=== PATIENT | male | born 1985 | race Caucasian/White ===

== ENCOUNTER → 2017-06-19 10:02 | Outpatient (CLI) | payer BC, SELFPAY ==
--- NOTE | 2017-06-19 | XR_ITS ---
XR cervical spine 5V COMPARISON: None HISTORY: Generalized neck pain TECHNIQUE: AP lateral and oblique views and spot view of the odontoid FINDINGS: There is straightening of normal curvature suggesting possible muscle spasm. C1-C7 appear intact and disc spaces are well maintained throughout. Oblique films show normal neural foramina bilaterally. The prevertebral soft tissues are normal and the odontoid is normal. IMPRESSION: Possible muscle spasm, no bony abnormality seen
--- NOTE | 2017-06-19 | XR_ITS ---
XR thoracic spine 2V COMPARISON: None HISTORY: Back pain TECHNIQUE: AP and lateral views and swimmer's view cervicothoracic junction FINDINGS: There is normal curvature and alignment. All thoracic vertebrae appear intact with no compression fracture seen. There is no degenerative change and is no paraspinal mass. IMPRESSION: Negative thoracic spine
--- NOTE | 2017-06-19 | XR_ITS ---
CLINICAL INDICATION: Left shoulder pain ORDERING PHYSICIAN: Manny García MD PATIENT AGE: 31 years COMPARISON: None FINDINGS: Three views of the left shoulder The distal clavicleleft, scapula, and proximal humerus are intact. Glenohumeral and acromioclavicular alignment appear normal. There is no acute fracture or dislocation of the left shoulder. No destructive bony lesions are identified. IMPRESSION: No acute fracture or dislocation of the left shoulder.
== END ==
PROVIDERS: PCP Internal Medicine Adolescent Medicine; Visit Provider Internal Medicine Adolescent Medicine
DX: M54.6 Pain in thoracic spine (principal); M25.512 Pain in left shoulder
CPT/HCPCS: 72050; 72070; 73030

== ENCOUNTER → 2018-08-27 10:46 | Outpatient (CLI) | payer OTHER, SELFPAY ==
--- NOTE | 2018-08-27 11:04 | XR_ITS ---
EXAM: XR lumbar spine min 4V HISTORY: Pain following injury/blunt trauma contusion or hematoma ITS.REASON: Lumbar back pain ORDERING PHYSICIAN: Francy Cox APRN PATIENT AGE: 32 years COMPARISON: None FINDINGS: Normal alignment. No fracture or dislocation. No lytic or blastic change. There are mild facet arthritic changes at L4-L5. There is degenerative disc disease at L4-L5 and L5-S1 with mild anterolisthesis of L5 on S1 of 7 mm. There may be a pars interarticularis defect at L5. 3 mm rounded metallic density foreign body overlies the right lower quadrant. IMPRESSION: 1. No acute finding. 2. Degenerative changes with grade 1 spondylolisthesis of L5 on S1 with possible pars defect at that level. This may be better evaluated with CT or MRI if clinically desired. 3. 3 mm metallic density radiopaque foreign body in the right lower quadrant which could be due to ingested foreign body or posttraumatic
== END ==
PROVIDERS: PCP Nurse Practitioner Family; Visit Provider Nurse Practitioner Family
DX: M54.5 Low back pain (principal)
CPT/HCPCS: 72110

== ENCOUNTER → 2018-11-18 15:54 | Outpatient (CLI) | payer OTHER, SELFPAY ==
[2018-11-18 16:10] LABS: Basophils % 0.5 % (0.1-2.0); Eosinophils # 0.2 K/mm3 (0.0-0.4); Eosinophils % 3.4 % (0.1-12.0); Hematocrit 46.3 % (42.0-52.0); Hemoglobin 15.8 g/dL (14.1-18.0); Lymphocytes # 1.8 K/mm3 (0.7-4.5); Lymphocytes % 33.4 % (10-50); Mean Corpuscular Hemoglobin 30.2 pg (27.0-31.2); Mean Corpuscular Volume 88.9 fl (80-94); Mean Platelet Volume 6.3 fl (7.4-10.4); Monocytes # 0.3 K/mm3 (0.1-1.0); Monocytes % 5.5 % (1.7-9.3); Neutrophils % 57.2 % (37.0-80.0); Platelet Count 224 K/mm3 (142-424); Red Blood Count 5.21 M/mm3 (4.60-6.20); Red Cell Distribution Width 12.4 % (11.5-17.5); White Blood Count 5.3 K/mm3 (4.8-10.8)
[2018-11-18 17:12] LABS: Alanine Aminotransferase 76 U/L (12-78); Albumin Level 4.4 gm/dL (3.4-5.0); Albumin/Globulin Ratio 1.5 (1.1-1.8); Alkaline Phosphatase 73 U/L (46-116); Anion Gap 10.7 mEq/L (5-15); Aspartate Amino Transferase 32 U/L (15-37); Bilirubin,Total 0.4 mg/dL (0.2-1.0); Blood Urea Nitrogen 15 mg/dL (7-18); Calcium 9.3 mg/dL (8.5-10.1); Carbon Dioxide 30 mmol/L (21.0-32.0); Chloride 105 mmol/L (98-107); Creatinine,Serum 1.07 mg/dL (0.70-1.30); Estimated Glomerular Filt Rate 79 ml/min (>60); GFR (African American) 96 ML/MIN (>60); Glucose 113 mg/dL (74-106); Potassium 3.7 mmoL/L (3.5-5.1); Sodium 142 mmol/L (136-145); Thyroid Stimulating Hormone 1.69 uIU/ml (0.358-3.740); Total Protein,Serum 7.4 gm/dL (6.4-8.2)
[2018-11-21 09:54] LABS: Vitamin B12 408 pg/mL (232-1245)
== END ==
PROVIDERS: Visit Provider Internal Medicine Adolescent Medicine
DX: R53.83 Other fatigue (principal); R53.81 Other malaise
CPT/HCPCS: 36415; 80053; 82607; 84443; 85025

== ENCOUNTER 2018-11-29 16:30 | Outpatient (RCR) | payer OTHER, SELFPAY ==
--- NOTE | 2018-11-23 16:07 | HMH.PTOPEV ---
PT Outpatient Evaluation Rehab PT Outpatient Evaluation Start: 11/23/18 14:58 Freq: Status: Active Protocol: Document 11/23/18 14:59 ROBERTO CARLOSSOLANGE (Rec: 11/23/18 16:07 CATRACHITO [id number]) Electronically Signed By John Feliciano PT 11/23/18 14:59 Outpatient Therapy Subjective History Subjective History 33 year old male pt. is referred to PT for L shoulder pn. Pt. reports that pn. began towards the end of October. He states that no specific incident lead to his pn. Pn. is primarily in the back of his shoulder. Pt. has had previous history of R shoulder pn. but nothing in his L. Pt. states that nothing specifically makes it better or worse but it is typically worse after activity. Note and eval done by student PT Sonny Arriaga Chief Complaint Pain Symptom Type Sharp Symptoms Relieved By Rest/Positioning Symptoms Aggravated By Physical Activity Prior Functional Limitations None Current Functional Limitations Reaching,Lifting,Housework, Recreation Activity Symptom Description Intermittent Level of pain today (0-10) 4 Pain scale - at its best (0-10) 0 Pain scale - at its worst (0-10) 6 Shoulder/Elbow Eval Shoulder Objective Measurements Palpation Tenderness tenderness shoulder exam standard left Shoulder Palpation Findings Tenderness Shoulder Palpation Overall Comment only very slight TTP over the posterior shoulder Shoulder ROM Right full ROM shoulder exam standard bilateral Left Shoulder Abduction Active Range of 180 Motion (degrees) Shoulder Flexion Active Range of Motion 180 (degrees) Query Text: Shoulder External Rotation Passive Range 80 of Motion (degrees) Shoulder Internal Rotation Passive Range 70 of Motion (degrees) pain with active ROM shoulder exam left standard pain with passive ROM shoulder exam left standard Shoulder MMT Right Shoulder Strength Reason Not Measured WFL Left Upper Trapezius/Levator Scapulae 5 Normal Shoulder Abduction Strength Grade 5 Normal Shoulder Extension Strength Grade 5 Normal Shoulder Flexion Strength Grade 5 Normal Shoulder External Rotation Strength 5 Normal Grade Shoulder Int
== END 2018-11-29 16:35 | disposition home or self-care (01) ==
LOC: PT 16:30
PROVIDERS: Visit Provider Internal Medicine Adolescent Medicine
DX: M75.102 Unspecified rotator cuff tear or rupture of left shoulder, not specified as traumatic (principal)
CPT/HCPCS: 97010; 97014; 97110; 97163; G0283

== ENCOUNTER → 2020-02-13 19:37 | Outpatient (CLI) | payer BC, SELFPAY ==
--- NOTE | 2020-02-13 19:57 | XR_ITS ---
PROCEDURE: XR CHEST PORTABLE CLINICAL HISTORY: COVID 19 TESTING, SHORTNESS OF BREATH, COVID EXPOSURE COMPARISON: CR [id number] XR chest portable from 06/18/2017 FINDINGS: The cardiomediastinal silhouette and pulmonary vascularity are within normal limits. The lungs are clear without infiltrates, suspicious nodules, or pleural effusions. No acute bony abnormalities. IMPRESSION: No acute findings. Dictated by: Preet Zuñiga MD 02/13/2020 21:23 Preet Zuñiga MD in [facility] 02/13/2020 21:23
[2020-02-13 22:31] LABS: Coronavirus 19 IgG Antibody Negative (Negative); Coronavirus 19 IgM Antibody Negative (Negative)
== END ==
PROVIDERS: PCP Nurse Practitioner Family; Visit Provider Nurse Practitioner Family
DX: Z03.818 Encounter for observation for suspected exposure to other biological agents ruled out (principal); R06.02 Shortness of breath
CPT/HCPCS: 71045; 86328

== ENCOUNTER → 2020-06-06 14:35 | Outpatient (CLI) | payer BC, SELFPAY ==
--- NOTE | 2020-06-06 14:39 | CT_ITS ---
PROCEDURE: CT CHEST WO CON CLINICAL INDICATION: MASS OF CHEST WALL, LT MULTIPLE LIPOMAS Left anterior/lateral upper chest mass Left upper abd mass possible Lipoma x several months, painful at times Lipoma x several years, no pain, both areas marked with BB Scanned through upper abd to include lower mass COMPARISON: No exams were available for comparison TECHNIQUE: Axial images obtained with sagittal and coronal reformats. All CT scans at the facility use one or more dose reduction, viz: automated exposure control, ma/kV adjustment per patient size (including targeted exams where dose is matched to indication, i.e. head), or iterative reconstruction technique. FINDINGS: HEART AND MEDIASTINAL STRUCTURES: Unremarkable. LUNGS AND PLEURAL SPACES: Calcified granulomas left lower lobe BONY STRUCTURES: No acute bony abnormalities apparent. UPPER ABDOMEN: Unremarkable. ADDITIONAL FINDINGS: BBs are placed over the areas of palpable concern. In the left mid chest laterally a BB is placed. There may be a small lipoma at this area at approximately 1.5 0.8 cm. In the left upper abdomen a BB is placed. There is a 3.4 x 2.4 cm lipoma deep to this area. IMPRESSION: 1. No acute finding of the chest. 2. Lipomas along the left chest wall and left upper abdomen. Dictated by: Preet Zuñiga MD 06/07/2020 06:30 Preet Zuñiga MD in [facility] 06/07/2020 06:30
== END ==
PROVIDERS: PCP Nurse Practitioner Family; Visit Provider Nurse Practitioner Family
DX: R22.2 Localized swelling, mass and lump, trunk (principal); D17.9 Benign lipomatous neoplasm, unspecified
CPT/HCPCS: 71250

== ENCOUNTER → 2021-03-14 09:08 | Outpatient (CLI) | payer BC, SELFPAY | PROVIDERS: PCP Internal Medicine Adolescent Medicine; Visit Provider Nurse Practitioner | DX: Z20.822 Contact with and (suspected) exposure to COVID-19 (principal) | CPT/HCPCS: C9803; U0003; U0005 ==

== ENCOUNTER → 2021-03-21 08:35 | Outpatient (CLI) | payer BC, SELFPAY | PROVIDERS: PCP Internal Medicine Adolescent Medicine; Visit Provider Nurse Practitioner | DX: Z20.822 Contact with and (suspected) exposure to COVID-19 (principal) | CPT/HCPCS: C9803; U0003; U0005 ==

== ENCOUNTER → 2021-03-28 14:45 | Outpatient (CLI) | payer BC, SELFPAY | PROVIDERS: Visit Provider Nurse Practitioner | DX: Z20.822 Contact with and (suspected) exposure to COVID-19 (principal) | CPT/HCPCS: C9803; U0003; U0005 ==

== ENCOUNTER → 2021-04-04 08:02 | Outpatient (CLI) | payer BC, SELFPAY | PROVIDERS: Visit Provider Nurse Practitioner | DX: Z20.822 Contact with and (suspected) exposure to COVID-19 (principal) | CPT/HCPCS: C9803; U0003; U0005 ==

== ENCOUNTER → 2021-04-11 08:12 | Outpatient (CLI) | payer BC, SELFPAY ==
[2021-04-12 15:31] LABS: Covid-19 Nasal PCR Sendout Lex NOT DETECTED
== END ==
PROVIDERS: Visit Provider Nurse Practitioner
DX: Z20.822 Contact with and (suspected) exposure to COVID-19 (principal)
CPT/HCPCS: C9803; U0004; U0005

== ENCOUNTER → 2021-04-17 08:04 | Outpatient (CLI) | payer BC, SELFPAY | PROVIDERS: Visit Provider Nurse Practitioner | DX: Z20.822 Contact with and (suspected) exposure to COVID-19 (principal) | CPT/HCPCS: C9803; U0003; U0005 ==

== ENCOUNTER → 2021-04-25 09:21 | Outpatient (CLI) | payer BC, SELFPAY ==
[2021-04-26 12:18] LABS: Covid-19 Nasal PCR Sendout Lex NOT DETECTED
== END ==
PROVIDERS: Visit Provider Nurse Practitioner
DX: Z20.822 Contact with and (suspected) exposure to COVID-19 (principal)
CPT/HCPCS: C9803; U0004; U0005

== ENCOUNTER → 2021-05-02 10:13 | Outpatient (CLI) | payer BC, SELFPAY ==
[2021-05-03 09:22] LABS: Covid-19 Nasal PCR Sendout Lex NOT DETECTED
== END ==
PROVIDERS: PCP Internal Medicine Adolescent Medicine; Visit Provider Nurse Practitioner
DX: Z20.822 Contact with and (suspected) exposure to COVID-19 (principal)
CPT/HCPCS: C9803; U0004; U0005

== ENCOUNTER → 2021-05-09 08:01 | Outpatient (CLI) | payer BC, SELFPAY | PROVIDERS: Visit Provider Nurse Practitioner | DX: Z20.822 Contact with and (suspected) exposure to COVID-19 (principal) | CPT/HCPCS: C9803; U0003; U0005 ==

== ENCOUNTER → 2021-06-19 14:41 | Outpatient (POV) | payer BC, SELFPAY ==
[2021-06-19 14:48] VITALS: BP 164/97; PULSE 69; RESP 20; O2SAT 98; BMI 26.6
--- NOTE | 2021-06-19 15:03 | HMH.PMCON ---
Assessment and Plan (1) Degenerative disc disease, lumbar Status: Acute Category: Medical Code(s): M51.36 - Other intervertebral disc degeneration, lumbar region (2) Spondylolisthesis at L5-S1 level Status: Acute Category: Medical Code(s): M43.17 - Spondylolisthesis, lumbosacral region (3) Lumbar radiculopathy Status: Acute Category: Medical Code(s): M54.16 - Radiculopathy, lumbar region - Assessment and plan all Dx Assessment and Plan for all problems:: Patient has been having worsening low back pain that radiates to his right leg. This has been going on for several years now and has gotten worse in the last couple months. He has been taking ibuprofen 800 mg with some relief of symptoms. He has tried chiropractic adjustments with minimal relief. He has not tried physical therapy because his insurance will not cover it and the patient will have to pay $100 [id number] for each session. Denies any loss of bowel or bladder function. From his x-ray in 2019, patient has degenerative disc changes at L4-L5 and L5-S1. We will schedule the patient for a lumbar epidural steroid injection at L4-L5. Risks and benefits of the procedure have been explained to the patient. Patient would like to proceed with the procedure. Patient is not any blood thinners. I will continue the patient's ibuprofen 800 mg twice a day. Patient is to take this medication with food every time. Patient has been instructed to contact the clinic with any concerns before the next appointment. Dr. Lamar has reviewed this note and agrees with this plan of care. This note was dictated using voice recognition software and make contain errors or omissions. HPI - Data of Consult Patient: new to practice Consult date: 06/19/21 Requesting Physician: BIANCA Pedro - Consult Narrative Reason for consult: Chronic low back pain History of present illness: Mr. Kelley is a 35 year old male who presents today as a new patient. 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 Patient presents with chronic low back pain that radiates mainly to his right leg. He denies any recent falls or traumas. He did used to play competitive basketball, ride horses, and bulls. He states that his low back pain is worse with any lumbar flexion, extension, rotation. Sometimes it gets better when he sits stands or lays down in bed. Lately, even sitting down or laying down has made it worse. He has gone to chiropractor adjustments with minimal relief of symptoms. He did say that at the beginning, he was getting relief from the adjustments. He has not tried physical therapy because insurance would not cover it and he would have to pay $100 [id number]. He was taken Duexis which was helping his pain. His insurance stopped covering this medication so he has not been taking it. He denies any loss of bowel and bladder functions. He rates his pain today as 8 out of 10. He is on any scheduled medications. From his lumbar x-ray in 2019, patient has grade 1 spondylolisthesis of L5 on S1. He does have degenerative disc changes at L4-L5 and L5-S1. CC: BIANCA Pedro [facility] History I have reviewed the patient's past medical history: Yes Medical History: Denies:: Cancer, Diabetes Mellitus Type 1, Diabetes Mellitus Type 2, MRSA *Have you ever received a pneumonia vaccine?: No *Have you received a flu vaccine this season?: No Laterality Cases: Bilateral: Tonsillectomy Amputation: No Fractures: No - *Social History Smoking Status: Never smoker Alcohol Intake: never *Occupational Status:: employed Housing: house Household Members: spouse *Travel in the last 8 weeks: None Family Hx:: No significant family history Review of Systems - Review of Systems Review of Systems: General: No recent weight changes, no fever, no sleep disturbances Respiratory: No cough, no shortness of air, no recurring pulmonary infections Cardiovascular/peripheral vascular: No chest pain, no palpitations, no
== END ==
PROVIDERS: Visit Provider Student in an Organized Health Care Education/Training Program
DX: M51.16 Intervertebral disc disorders with radiculopathy, lumbar region (principal); M43.17 Spondylolisthesis, lumbosacral region
CPT/HCPCS: 99202; G0463

== ENCOUNTER 2021-06-20 12:06 | Day surgery (SDC) | payer BC, SELFPAY ==
[2021-06-20 12:34] VITALS: BP 152/89; BP 152/91; BP 159/93; PULSE 81; PULSE 87; RESP 18; RESP 20; TEMP 36.7; O2SAT 95; O2SAT 96; BMI 26.6
--- NOTE | 2021-06-20 12:43 | HMH.PMPROC ---
- Procedure Date: 06/20/21 (') Time: 12:43 Anesthesiologist:: Augusto Knight CRNA Complications:: None Pre-procedure Diagnosis:: Degenerative disc disease lumbar spine with lumbar radiculopathy Post-procedure Diagnosis:: Same Indications for Procedure:: Patient's a pleasant 35-year-old male that presents to our injection clinic today for lumbar epidural steroid injection at the L4-5 level. Procedure Details:: Procedure: Lumbar epidural steroid injection under fluoroscopy Informed consent was obtained and the risks and benefits of the procedure were explained to the patient. The patient was taken to the procedure room and noninvasive monitors placed, including noninvasive blood pressure cuff and pulse oximeter. The back was viewed using C-arm Fluoroscopy and prepped using Betadine as a cleansing solution and the L4-L5 interspace was palpated. Skin and subcutaneous tissues were anesthetized using lidocaine 1.5% and a 25-gauge needle. After this, an 18-gauge Touhy epidural needle was placed into the L4-L5 interspace and advanced using fluoroscopic guidance and loss of resistance to air until the epidural space was encountered. After confirmation of needle placement in the epidural space, with dye, a solution containing lidocaine 1.5%, 4 mL and Depo-Medrol 80 mg were incrementally injected into the lumbar epidural space. The patient tolerated the procedure well with no complications. The patient was observed in the Pain Clinic and then discharged home neurologically intact. Plan and Disposition:: Patient was discharged following procedure without difficulty.
[2021-06-20 12:47] VITALS: BP 143/92; PULSE 90; RESP 18; O2SAT 96
== END 2021-06-20 12:48 | disposition home or self-care (01) ==
LOC: SC.PAINP 12:07
PROVIDERS: PCP Internal Medicine Adolescent Medicine; Visit Provider Nurse Anesthetist, Certified Registered
DX: M51.16 Intervertebral disc disorders with radiculopathy, lumbar region (principal); M43.17 Spondylolisthesis, lumbosacral region; M19.90 Unspecified osteoarthritis, unspecified site; K76.0 Fatty (change of) liver, not elsewhere classified
CPT/HCPCS: 62323; J1040

== ENCOUNTER → 2021-06-25 13:27 | Outpatient (CLI) | payer BC, SELFPAY ==
--- NOTE | 2021-06-25 13:32 | MR_ITS ---
FINAL REPORT CLINICAL HISTORY: acute lower back pain with right sided leg pain FINDINGS: Multiplanar MR imaging of the lumbar spine was performed without contrast. On the sagittal T2-weighted images, there is abnormal decreased signal in the L4-5 and L5-S1 discs. The vertebrae are of normal height. There is anterolisthesis of L5 relative to L4 and S1. L1-2: There is no significant canal stenosis or neural foraminal narrowing. L2-3: There is no significant canal stenosis or neural foraminal narrowing. L3-4: There is no significant canal stenosis or neural foraminal narrowing. L4-5: There is a moderate right paracentral disc protrusion with moderate to high-grade compromise on the right lateral recess. There is moderate right neural foraminal narrowing. Findings are best seen on axial image 18 of series 10. L5-S1: There is a moderate diffuse disc bulge with bilateral facet hypertrophy. There is moderate to high-grade right neural foraminal narrowing. IMPRESSION: Right paracentral disc protrusion at L4-L5 with moderate to high-grade compromise on the right lateral recess. Significant right neural foraminal compromise at L4-5 and L5-S1, greatest at L5-S1. Anterolisthesis of L5 relative to L4 and S1. Reviewed, Interpreted and Dictated by James Carreon MD Transcribed by Adrian Hung Authenticated by James Carreon MD on 06/25/2021 03:27:[address] [facility]
== END ==
PROVIDERS: PCP Internal Medicine Adolescent Medicine; Visit Provider Nurse Practitioner Family
DX: M54.41 Lumbago with sciatica, right side (principal)
CPT/HCPCS: 72148; 76376

== ENCOUNTER 2021-08-17 08:59 | Emergency (ER) | payer BC, SELFPAY ==
[2021-08-17 09:13] VITALS: BP 131/93; PULSE 83; RESP 17; TEMP 36.8; O2SAT 98; BMI 26.6
--- NOTE | 2021-08-17 09:18 | HMH.EDUTC ---
[facility] [place] Clinical Impression: Rupture of tympanic membrane due to otitis media Disposition: Home, Self-Care Condition on Discharge: Good Instructions: Ruptured Eardrum, DI for Tympanic Membrane Perforation-Adult, Azithromycin Additional Instructions: Take medication as prescribed Call ENT office in the morning for appointment as soon as possible Avoid getting water in your ears, blowing your nose or anything that may cause pressure in the ear Return if needed Straight to ER if any life threatening symptoms Prescriptions: Azithromycin [Z-Paulo 250mg Tab] 250 mg PO DIRECTED #6 tab Transmission Status: Sent to [facility] Referrals: Manny García MD [Primary Care Provider] - As needed Rakesh Reid MD [Physician] - Shannon Paz MD [Consulting Physician] - Hong Rios MD [Physician] - Time of Disposition: 09:32 Medical Decision Making - Jeffery Inquiry Pt receiving controlled substance: No Jeffery was queried for this patient: No Vital Signs: 08/17/21 09:13 Temperature 98.2 F Temperature Source Oral Pulse Rate [Left Radial] 83 Respiratory Rate 17 Blood Pressure [Right Arm] 131/93 H Blood Pressure Mean [Right Arm] 105 02 Sat by Pulse Oximetry 98 Medical Decision Narrative: Patient denies taking Cefdinir or Cephalexin before medications discussed with pharmacy [facility] [place] - General Stated complaint: rt ear bleeding, loss of hearing Time Seen by Provider: 08/17/21 09:18 Source of Information: Patient Description of Symptoms (Recalled from Triage Doc. by RN): patient comes in today with complaints of right ear pressure that began last night. patient states his ear started bleeding around 3 am. HEENT Symptoms (Recalled from RN notes): Yes Resp Symptoms (Recalled from RN notes): No Skin Symptoms (Recalled from RN notes): No MS Symptoms (Recalled from RN notes): No Functional Status (Recalled from RN notes): wnl - History of Present Illness Provider Complaint: Patient states that he has been having pain in his right ear and thought he was getting an ear infection States that he noticed last night it felt like he could hear water in his ear then about 3am he felt something running from his ear and an noticed it was bleeding States that today he feels like his ear is still full so he came in to get it checked out - Related Data Home Medications Medication Instructions Recorded Confirmed Ibuprofen [Ibuprofen 800mg 800 mg PO BID 06/20/21 06/20/21 Tablet] Previous Rx's Medication Instructions Recorded Azithromycin [Z-Paulo 250mg Tab] 250 mg PO DIRECTED #6 tab 08/17/21 Allergies Allergy/AdvReac Type Severity Reaction Status Date / Time diclofenac Allergy Verified 08/17/21 09:17 Penicillins Allergy Verified 08/17/21 09:17 - Worker's Comp Is this a Worker's Comp case?: No [facility] History - Hepatitis A Screen Attestation statement:: This patient has been screened for Hepatitis A risk factors. I have reviewed the patient's past medical history: Yes Medical History: Denies:: Cancer, Diabetes Mellitus Type 1, Diabetes Mellitus Type 2, MRSA Other Medical History: Reports: Arthritis Laterality Cases: Bilateral: Tonsillectomy Amputation: No Fractures: No - Social History Smoking Status: Never smoker Alcohol Intake: never Occupational Status: employed Housing: house Household Members: spouse Family Hx:: No significant family history ROS Obtained: Yes All systems reviewed & no additional complaints, Yes Systems reviewed as appropriate & no additional complaints - Constitutional Constitutional: Reports system reviewed and no additional complaints, except as docu - ENT Ears, Nose, Mouth, and Throat: Reports system reviewed and no additional complaints, except as docu, Reports otalgia Physical Exam - General General appearance: alert, in no apparent distress - Expanded ENT Exam TM/Canal exam: Right TM: erythema, perforation (blood no
[2021-08-17 09:41] VITALS: BP 131/93; PULSE 83; RESP 17; TEMP 36.8
== END 2021-08-17 09:42 | disposition home or self-care (01) ==
PROVIDERS: Emergency Provider Nurse Practitioner; PCP Internal Medicine Adolescent Medicine
DX: H66.91 Otitis media, unspecified, right ear (principal); H72.91 Unspecified perforation of tympanic membrane, right ear
CPT/HCPCS: 99212; G0463

== ENCOUNTER → 2022-12-01 12:46 | Outpatient (CLI) | payer OTHER, SELFPAY ==
--- NOTE | 2022-12-01 12:54 | XR_ITS ---
FINAL REPORT CLINICAL HISTORY: LT WRIST PAIN. PAIN ON TOP OF HAND AND AROUND THUMB. FINDINGS: 3 views of the left wrist were obtained. There is no acute fracture or dislocation. The joint spaces are intact. There is soft tissue swelling over the dorsum of the wrist. IMPRESSION: No acute bony abnormality. Reviewed, Interpreted and Dictated by James Carreon MD Transcribed by Adrian Hung Authenticated and [facility]
--- NOTE | 2022-12-01 12:54 | XR_ITS ---
FINAL REPORT CLINICAL HISTORY: LT HAND PAIN. PAIN ON TOP OF HAND AND AROUND THUMB. FINDINGS: 3 views of the left hand were obtained. There is no acute fracture or dislocation. The joint spaces are intact. There is soft tissue swelling over the dorsum of the hand up to 10 mm. IMPRESSION: No acute bony abnormality. Reviewed, Interpreted and Dictated by James Carreon MD Transcribed by Adrian Hung Authenticated and [facility]
== END ==
PROVIDERS: PCP Internal Medicine Adolescent Medicine; Visit Provider Nurse Practitioner Family
DX: M25.532 Pain in left wrist (principal); M79.642 Pain in left hand
CPT/HCPCS: 73110; 73130

== ENCOUNTER → 2023-01-14 12:34 | Outpatient (CLI) | payer OTHER, SELFPAY ==
--- NOTE | 2023-01-14 12:35 | MR_ITS ---
FINAL REPORT CLINICAL HISTORY: Lt Wrist Pain. Injury x's 3 different times. Recent fall and catch himself with wrist. COMPARISON: None FINDINGS: Multiplanar MR imaging of the left wrist was performed without contrast. The images are very suboptimal due to machine degradation which decreases sensitivity. The wrist was also imaged and hyperextension, which limits image quality. There is a 5 mm osteochondral lesion in the proximal medial lunate, which may be secondary to ulnar impaction syndrome in this patient with positive ulnar variance. There is no evidence of intrinsic ligament injury. There is a tear of the radial aspect of the triangular fibrocartilage. There is a structure on the extensor side of the wrist favored to represent an abnormal extensor pollicis longus, and worrisome for a tear at the level of the distal radius. Clinical correlation is suggested. There is tenosynovitis of the extensor carpi radialis longus and brevis tendons. No soft tissue mass or cyst is identified. No focal abnormality is identified of the median nerve. IMPRESSION: Limited exam secondary to suboptimal images, plus imaging the wrist in hyperextension limits image quality. 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 There is a tear of the radial aspect of the triangular fibrocartilage. There is a structure on the extensor side of the wrist favored to represent an abnormal extensor pollicis longus tendon, worrisome for a tear at the level of the distal radius. Clinical correlation is suggested, and follow-up MRI may be helpful. Tenosynovitis of the extensor carpi radialis longus and brevis tendons. Reviewed, Interpreted and Dictated by Oliver Jhaveri III, MD Transcribed by Charlette Blunt Authenticated and [facility]
== END ==
PROVIDERS: PCP Internal Medicine Adolescent Medicine; Visit Provider Orthopaedic Surgery
DX: M25.532 Pain in left wrist (principal)
CPT/HCPCS: 73221

== ENCOUNTER 2023-03-16 15:33 | Outpatient (POV) | payer OTHER, SELFPAY ==
--- OUTSIDE RECORDS SUMMARY | 2023-03-16 15:35 | XMS_ITS | Patient Health Record ---
Author Name Unknown Organization [facility] Address [address] [place] [address] Care Team Providers Care Desktop Specialist Name Role Phone Elisa Sorenson Primary Care Provider [phone] ELISA Sorenson APRN Unavailable Unavailable ALLERGIES Allergen (clinical drug ingredient) Drug/Non Drug Allergy documented on EMR Reaction Allergy Type Onset Date Status Cipro Unknown Drug Allergy Active Flagyl Unknown Drug Allergy Active penicillin Unknown Drug Allergy Active diclofenac diclofenac Unknown Drug Allergy Activ e RESULTS Component Value Reference Range Notes COMPREHENSIVE METABOLIC PANE Steve (10932) Reviewed date:11/28/2022 07:40:27 AM Interpretation: Performing Lab:CB, [facility] [address], [facility] HospitalInoeZQ[address] Ren Wiley Notes/Report: NON-FASTING; NON-FASTING FASTING:YES FASTING: YES GLUCOSE 93 65-99 mg/dL Fasting reference interval UREA NITROGEN (BUN) 17 7-25 mg/dL CREATININE 0.98 0.60-1.26 mg/dL EGFR 101 > OR = 60 mL/min/1.73m2 BUN/CREATININE RATIO SEE NOTE: 6-22 (calc) Not Reported: BUN and Creatinine are within reference range. SODIUM 140 135-146 mmol/L POTASSIUM 4.1 3.5-5.3 mmol/L CHLORIDE 105 98-110 mmol/L CARBON DIOXIDE 26 20-32 mmol/L CALCIUM 9.8 8.6-10.3 mg/dL PROTEIN, TOTAL 7.2 6.1-8.1 g/dL ALBUMIN 4.8 3.6-5.1 g/dL GLOBULIN 2.4 1.9-3.7 g/dL (calc) ALBUMIN/GLOBULIN RATIO 2.0 1.0-2.5 (calc) BILIRUBIN, TOTAL 0.6 0.2-1.2 mg/dL ALKALINE PHOSPHATASE 68 36-130 U/L AST 27 10-40 U/L ALT 45 9-46 U/L LIPID PANEL, STANDARD (7600) Reviewed date:11/28/2022 07:40:27 AM Interpretation: Performing Lab:CB, [facility] [address], [place] MirnadaFirlBF[address] Ren Wiley Notes/Report: NON-FASTING; NON-FASTING FASTING:YES FASTING: YES CHOLESTEROL, TOTAL 194 <200 mg/dL HDL CHOLESTEROL 42 > OR = 40 mg/dL TRIGLYCERIDES 91 <150 mg/dL LDL-CHOLESTEROL 133 Reference range: <100 Desirable range <100 mg/dL for primary prevention; <70 mg/dL for patients with CHD or diabetic patients with > or = 2 CHD risk factors. LDL-C is now calculated using the Papa-Opal calculation, which is a validated novel method providing better accuracy than the Friedewald equation in the estimation of LDL-C. Papa SS et al. RADHA. 2013;310(19): 6869-8310 (http://education.Rapid Pathogen Screening.[employer]/faq/FAQ16 4) CHOL/HDLC RATIO 4.6 <5.0 (calc) NON HDL CHOLESTEROL 152 <130 mg/dL (calc) For patients with diabetes plus 1 major ASCVD risk factor, treating to a non-HDL-C goal of <100 mg/dL (LDL-C of <70 mg/dL) is considered a therapeutic option. X ray : Wrist, Left Reviewed date:12/03/2022 09:31:05 AM Interpretation: Performing Lab: Notes/Report: X ray : Hand, Left Reviewed date:12/03/2022 09:31:05 AM Interpretation: Performing Lab: Notes/Report: X ray : Hand, Left Reviewed date:12/03/2022 09:31:05 AM Interpretation: Performing Lab: Notes/Report: X ray : Hand, Left Reviewed date:12/03/2022 09:31:05 AM Interpretation: Performing Lab: Notes/Report: MEDICATIONS Medication SIG (Take, Route, Frequency, Duration) Notes Start Date End Date Status fluticasone nasal 50 mcg/inh 1 spray(s) in each nostril once a day for 30 day(s) prn 08/18/2021 Active ketoconazole topical 2% 1 eva applied to pically once a day for 30 days 12/21/2022 Active cetirizine 10 mg 1 tab(s) orally once a day for 30 day(s) prn 08/18/2021 Active IMMUNIZATIONS Vaccine Route Administration Date Status Comme nts Adacel (Tdap) IM Intramuscular 07/19/2008 Administered SOCIAL HISTORY Tobacco Use: Social History Observation Description Date Details (start date - stop date) Never Smoker NA - NA Sex Assigned At : Social History Observation Description Sex Assigned At Unknown Smoking: Question Answer Notes Are you a: nonsmoker PROBLEMS Problem Type ICD Code Onset Dates Problem Status W/U Status Risk SNOMED Code Notes Problem Seasonal allergies (J30.2) Active confirmed 205069494 Problem BITA (generalized anxiety disorder) (F41.1) Active confirmed 33086730 Problem Rotator cuff syndrome of left shoulder (M75.102) Active confirmed 656418495908414 Problem Inguinal lymphadenitis (I88.9) Active confirmed 81042501 Problem Leukopenia (D72.819) Active confirmed Leukopenia (70210585) Problem Carpal tunnel syndrome of left wrist (G56.02) Active confirmed 11377645 Problem Acute bilateral low back pain with right-sided sciatica (M54.41) Active confirmed 383151540 Problem Tinnitus of left ear (H93.12) Active confirmed 65939774 VITAL SIGNS Heart Rate 74 /min 11/27/2022 Temperature 97.8 degrees Fahrenheit 11/27/2022 Blood pressure diastolic 82 mm Hg 11/27/2022 Height 5'8 in 11/27/2022 Blood pressure systolic 132 mm Hg 11/27/2022 Weight 177.6 lbs 11/27/2022 BMI 27 kg/m2 11/27/2022 Encounters Encounter Location Date Provider Diagnosis [facility] [address] [facility] [address] [place] [address] 11/27/2022 Elisa Delta Routine medical exa m Z00.00 and Skin lesion L98.9 [facility] [address] [place] [address] 12/01/2022 Elisa McNees Left hand pain M79.642 and Left wrist pain M25.532 [facility] [address] [address] [place] [address] 12/21/2022 Elisa McNees Skin lesion L98.9 [facility] [address] [address] [place] [address] 12/21/2022 Elisa McNees [facility] [address] [address] [place] [address] 02/01/2023 Elisa McNees ASSESSMENTS Encounter Date Diagnosis Assessment Notes Treatment Notes Treatment Clinical Notes 12/21/2022 Skin lesion (ICD-10 - L98.9) 12/01/2022 Left hand pain (ICD-10 - M79.642) 12/01/2022 Left wrist pain (ICD-10 - M25.532) 11/27/2022 Routine medical exam (ICD-10 - Z00.00) Exam unremarkable. Immunizations including Tdap UTD. Routine labs drawn today 11/27/2022 Skin lesion (ICD-10 - L98.9) Interesting skin lesion as it is a perfect [place]. Is not ringworm, trial of triamcinolone cream given. Return precautions discussed. PLAN OF TREATMENT Pending Test Test Name Order Date EKG : In House 03/19/2014 Physical Therapy 02/08/2013 Physical Therapy 11/18/2018 H-CBC with AUTO DIFF 05/14/2015 H-URINE CULTURE 05/14/2015 H-CMP 05/14/2015 H-RAPID PLASMA REAGIN 05/14/2015 H-SED RATE 05/14/2015 H-URINE CHLAMYDIA 05/14/2015 H-URINE GC 05/14/2015 C-CBC 06/10/2020 C-CMP 05/31/2020 C-HEPATITIS PANEL 10/08/2016 M-Hemoglobin A1C 06/04/2020 Insurance Providers Payer Name Payer Address Payer Phone Subscriber Number Group Number Insured Name Patient Relationship to Insured Coverage Start Date Coverage End Date [place] [address] [address] [place] [address] [phone] [id number] Alexei Kelley Self - patient is the insured MEDICAL (GENERAL) HISTORY Medical History History ICD Code allergies ulcers 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 Surgery Date(Month/Year) tonsillectomy Hospitalization History Reason Date(Month/Year) colitis
== END 2023-03-16 23:59 | disposition home or self-care (01) ==
LOC: SC 15:33
PROVIDERS: PCP Internal Medicine Adolescent Medicine; Visit Provider Dermatology
DX: Z00.00 Encounter for general adult medical examination without abnormal findings (principal)

== ENCOUNTER 2023-08-21 08:08 | Emergency (ER) | payer OTHER, SELFPAY ==
--- OUTSIDE RECORDS SUMMARY | 2023-08-21 08:13 | XMS_ITS | Patient Health Record ---
Author Name Unknown Organization [facility] Address [address] [place] [address] Care Team Providers Care Cable Tool Operator Name Role Phone Elisa Sorenson Primary Care Provider ELISA Sorenson APRN Unavailable Unavailable ALLERGIES Allergen (clinical drug ingredient) Drug/Non Drug Allergy documented on EMR Reaction Allergy Type Onset Date Status Cipro Unknown Drug Allergy Active Flagyl Unknown Drug Allergy Active penicillin Unknown Drug Allergy Active diclofenac diclofenac Unknown Drug Allergy Activ e RESULTS Component Value Reference Range Notes X ray : Wrist, Left Reviewed date:12/03/2022 09:31:05 AM Interpretation: Performing Lab: Notes/Report: X ray : Hand, Left Reviewed date:12/03/2022 09:31:05 AM Interpretation: Performing Lab: Notes/Report: X ray : Hand, Left Reviewed date:12/03/2022 09:31:05 AM Interpretation: Performing Lab: Notes/Report: X ray : Hand, Left Reviewed date:12/03/2022 09:31:05 AM Interpretation: Performing Lab: Notes/Report: COMPREHENSIVE METABOLIC PANE L (17204) Reviewed date:11/28/2022 07:40:27 AM Interpretation: Performing Lab:CB, [facility] [address] [facility] [place] WtkjAS[address] Ren Wiley Notes/Report: FASTING: YES FASTING:YES NON-FASTING; NON-FASTING GLUCOSE 93 65-99 mg/dL Fasting reference interval [...] (7600) Reviewed date:11/28/2022 07:40:27 AM Interpretation: Performing Lab:AARON, [facility], [facility] InstituteMuqrGV[address] Ren Wiley Notes/Report: NON-FASTING; NON-FASTING FASTING:YES FASTING: [...] equation in the estimation of LDL-C. Papa SAUER et al. RADHA. 2013;310(19): 9920-8765 (http://education.Ohm[employer]/faq/FAQ16 4) CHOL/HDLC RATIO 4.6 <5.0 (calc) NON HDL CHOLESTEROL 152 <130 mg/dL (calc) For patients with diabetes plus 1 major ASCVD risk factor, treating to a non-HDL-C goal of <100 mg/dL (LDL-C of <70 mg/dL) is considered a therapeutic option. MEDICATIONS Medication SIG (Take, Route, Frequency, Duration) [...] Notes Problem Seasonal allergies (J30.2) Active confirmed 593772056 Problem BITA (generalized anxiety disorder) (F41.1) Active confirmed 94917311 Problem Rotator cuff syndrome of left shoulder (M75.102) Active confirmed 542825556758171 Problem Inguinal lymphadenitis (I88.9) Active confirmed 63580694 Problem Leukopenia (D72.819) Active confirmed Leukopenia (26038687) Problem Carpal tunnel syndrome of left wrist (G56.02) Active confirmed 59406503 Problem Acute bilateral low back pain with right-sided sciatica (M54.41) Active confirmed 482955778 Problem Tinnitus of left ear (H93.12) Active confirmed 28884030 VITAL SIGNS Heart Rate 74 /min 11/27/2022 Temperature 97.8 degrees Fahrenheit 11/27/2022 Blood pressure diastolic 82 mm Hg 11/27/2022 Height 5'8 in 11/27/2022 Blood pressure systolic 132 mm Hg 11/27/2022 Weight 177.6 lbs 11/27/2022 BMI 27 kg/m2 11/27/2022 Encounters Encounter Location Date Provider Diagnosis [facility] [address] [facility] 4 [place] [address] 11/27/2022 Elisa Delta Routine medical exa m Z00.00 and Skin lesion L98.9 [facility] [address] [place] [address] 12/01/2022 Elisa McNees Left hand pain M79.642 and Left wrist pain M25.532 [facility] [address] [address] [place] [address] 12/21/2022 Elisa McNees Skin lesion L98.9 [facility] [address] [place] [address] [place] [address] 12/21/2022 Elisa McNees [facility] [address] [address] [place] [address] 02/01/2023 Elisa McNees ASSESSMENTS Encounter Date Diagnosis [...] skin lesion as it is a perfect [place]. Is not ringworm, trial of triamcinolone cream [...] Coverage End Date R [address] [address] [place] [address] [phone] [id number] [phone] Alexei Kelley Self - patient is the insured MEDICAL (GENERAL) HISTORY Medical History History ICD Code allergies ulcers 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 Surgery Date(Month/Year) tonsillectomy Hospitalization History Reason Date(Month/Year) colitis
[2023-08-21 08:20] VITALS: BP 139/79; PULSE 95; RESP 19; TEMP 36.8; O2SAT 98; BMI 27.5
[2023-08-21 08:40] LABS: UTC Strep Screen (Rapid) Negative (Negative)
[2023-08-21 08:41] LABS: UTC Influenza A Antigen Negative (Negative); UTC Influenza B Antigen Negative (Negative)
--- NOTE | 2023-08-21 08:49 | ED_ITS ---
Discharge Plan Disposition Patient Disposition: Home, Self-Care Condition: Good Prescriptions Prescriptions: New azithromycin 250 mg tablet 250 mg PO DIRECTED Qty: 6 0RF Rx Instructions: Take two (2) tablets on day #1, then one (1) tablet day #2 thru #5 No Action ibuprofen 800 MG tablet 800 mg PO BID Referrals Follow up/Referrals: Manny García MD [Primary Care Provider] - See instructions Activity Restrictions/Add. Instructions Additional Instructions/Restrictions: Start antibiotics today be sure to take it as ordered with the full length of time although you should start feeling better in 24-48 hours. Change toothbrush and toothpaste 24-48 hours after starting antibiotics Tylenol or Motrin as needed for fever or pain Encourage fluids, water, Gatorade, Powerade, try cold fluids, popsicles, ice cream will make it feel better You are contagious for 24 hours. Avoid kissing anyone, no eating or drinking after anyone. You are contagious. Follow-up the ER for new or worsening symptoms or no noticeable improvement over the next 24-48 hours. Follow-up with PCP this week. Clinical Impressions Clinical Impression: Strep sore throat, Exposure to strep throat Instructions Patient Instructions: DI for Strep Throat Discharge ED Provider: Amy ([facility])[place] [facility] General Stated complaint: sore throat, congestion Mode of Arrival: Ambulatory Source of Information: Patient Limitations: No Limitations Time Seen by Provider: 08/21/23 08:49 Description of Symptoms (Recalled from Triage Doc. by RN): PATIENT C/O HEADACHE, BODY ACHES AND SORE THROAT SINCE LAST NIGHT HEENT Symptoms (Recalled from RN notes): Yes Resp Symptoms (Recalled from RN notes): No Skin Symptoms (Recalled from RN notes): No MS Symptoms (Recalled from RN notes): No Functional Status (Recalled from RN notes): WNL History of Present Illness Provider Complaint: 37 yr old male presents for sore throat, body aches and headache since last night- child has strep and fifth dz Related Data Home Medications Medication Instructions Recorded Confirmed ibuprofen 800 mg tablet 800 mg PO BID Pain 06/20/21 01/19/23 Previous Rx's Medication Instructions Recorded azithromycin 250 mg tablet 250 mg PO DIRECTED #6 tabs 08/21/23 Allergies Allergy/AdvReac Type Severity Reaction Status Date / Time diclofenac Allergy Verified 01/19/23 15:00 Penicillins Allergy Verified 01/19/23 15:00 Worker's Comp Is this a Worker's Comp case?: No [facility] Disclaimer: The information contained in this section may have been updated after the patient was seen, as this information can be updated by other users. 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) Smoking Status: Never smoker alcohol intake: never current occupational status: employed Travel in the last 8 weeks: None household members: spouse housing: house ROS Obtained: Yes All systems reviewed & no additional complaints except as documented Constitutional Constitutional: Reports system reviewed and no additional complaints, except as documented, Reports body ache, Reports chills, Reports fever(s) and Reports malaise ENT Ears, Nose, Mouth, and Throat: Reports system reviewed and no additional complaints, except as documented and Reports sore throat Cardiovascular Cardiovascular: Reports system reviewed and no additional complaints, except as documented Respiratory Respiratory: Reports system reviewed and no additional complaints, except as documented Gastrointestinal Gastrointestingal: Reports system reviewed and no additional complaints, except as documented Musculoskeletal Musculoskeletal: Reports system reviewed and no additional complaints, except as documented Integumentary/Breasts Skin/Breast: Reports system reviewed and no additional complaints, except as documented Endocrine Endocrine: Reports system reviewed and no additional complaints, except as documented Allergic/Immunologic Allergic/Immunologic: Reports system reviewed and no additional complaints, except as documented Physical Exam General General appearance: alert and in no apparent distress Head Head exam: atraumatic Eye Eye exam: Present normal appearance and PERRL ENT ENT exam: Present mucous membranes moist and TM's normal bilaterally Expanded ENT Exam Comment: pharynx red, exudates Respiratory Respiratory exam: Present normal lung sounds bilaterally Cardiovascular Cardiovascular exam: Present regular rate and normal rhythm Neurological Exam Neurological exam: Present alert and oriented X3 Skin Skin exam: Present warm and intact Lymphatic Lymphatic Findings: no adenopathy Medical Decision Making Medical Records Medical records reviewed: Yes I reviewed the patient's medical records. Jeffery Inquiry Pt receiving controlled substance: No Jeffery was queried for this patient: No Vital Signs: 08/21/23 08:20 Temperature 98.3 F Temperature Source Oral Pulse Rate [Left Brachial] 95 H Respiratory Rate 19 Blood Pressure [Left Arm] 139/79 Blood Pressure Mean [Left Arm] 99 Blood Pressure Source [Left Arm] Automatic Cuff Blood Pressure Position [Left Arm] Sitting 02 Sat by Pulse Oximetry 98 Oxygen Delivery Method Room Air Lab Data Lab results reviewed: Yes I reviewed the patient's lab results. Lab Results 08/21/23 08:37: Influenza Type A Ag Negative, Influenza Type B Ag Negative, Strep Scn Rapid Clinic Negative Orders (Tests/Meds): ORDERS Category Date Time Status Strep Screen Confirmation Stat Micro 08/21/23 08:37 Received
[2023-08-21 08:59] VITALS: BP 139/79; PULSE 95; RESP 19; TEMP 36.8; O2SAT 98
== END 2023-08-21 09:03 | disposition home or self-care (01) ==
PROVIDERS: Emergency Provider Nurse Practitioner Family; PCP Internal Medicine Adolescent Medicine
DX: J02.0 Streptococcal pharyngitis (principal); R07.0 Pain in throat; R51.9 Headache, unspecified
CPT/HCPCS: 87804; 87880; 99212; 99214; G0463

== ENCOUNTER 2023-08-22 13:00 | Observation (INO) | payer OTHER, SELFPAY ==
[2023-08-22] VITALS (11 sets, daily range): BP systolic 106–181; BP diastolic 70–92; PULSE 79–102; RESP 17–20; TEMP 36.4–36.6; O2SAT 95–100; BMI 27.3; BMI 27.4
--- OUTSIDE RECORDS SUMMARY | 2023-08-22 13:08 | XMS_ITS | Patient Health Record ---
Author Name Unknown Organization [facility] Address [address] [place] [address] Care Team Providers Care Chief Estimator Name Role Phone Elisa Sorenson Primary Care [...] Performing Lab: Notes/Report: COMPREHENSIVE METABOLIC PANE L (69061) Reviewed date:11/28/2022 07:40:27 AM Interpretation: Performing Lab:CB, [facility] [address] [facility] [place] AggwRL[address] Ren Wiley Notes/Report: NON-FASTING; NON-FASTING FASTING:YES FASTING: [...] Reviewed date:11/28/2022 07:40:27 AM Interpretation: Performing Lab:AARON, [facility], [facility] CenterYptqBW[address] Ren Wiley Notes/Report: NON-FASTING; NON-FASTING FASTING:YES FASTING: [...] LDL-C. Papa SAUER et al. RADHA. 2013;310(19): 6988-3131 (http://education.LOYAL3.[employer]/faq/FAQ16 4) CHOL/HDLC RATIO 4.6 <5.0 (calc) NON [...] Notes Problem Seasonal allergies (J30.2) Active confirmed 979443142 Problem BITA (generalized anxiety disorder) (F41.1) Active confirmed 94892270 Problem Rotator cuff syndrome of left shoulder (M75.102) Active confirmed 054199127950115 Problem Inguinal lymphadenitis (I88.9) Active confirmed 81473385 Problem Leukopenia (D72.819) Active confirmed Leukopenia (65967792) Problem Carpal tunnel syndrome of left wrist (G56.02) Active confirmed 30832537 Problem Acute bilateral low back pain with right-sided sciatica (M54.41) Active confirmed 222632205 Problem Tinnitus of left ear (H93.12) Active confirmed 38916831 VITAL SIGNS Heart Rate 74 /min 11/27/2022 Temperature 97.8 degrees Fahrenheit 11/27/2022 Blood pressure diastolic 82 mm Hg 11/27/2022 Height 5'8 in 11/27/2022 Blood pressure systolic 132 mm Hg 11/27/2022 Weight 177.6 lbs 11/27/2022 BMI 27 kg/m2 11/27/2022 Encounters Encounter Location Date Provider Diagnosis [facility] [address] [facility] 4 [place] [address] 11/27/2022 Elisa Delta Routine medical exa m Z00.00 and Skin lesion L98.9 [facility] [address] [place] [address] 12/01/2022 Elisa McNees Left hand pain M79.642 and Left wrist pain M25.532 [facility] [address] [address] [place] [address] 12/21/2022 Elisa McNees Skin lesion L98.9 [facility] [address] [address] [place] [address] 12/21/2022 Elisa McNees [facility] [address] [address] [place] [address] 02/01/2023 Elisa McNees ASSESSMENTS Encounter Date Diagnosis [...] skin lesion as it is a perfect [place]. Is not ringworm, trial of triamcinolone cream [...] Coverage End Date R [address] [address] [place] [address] [phone] [id number] [phone] Alexei Kelley Self - patient is the insured MEDICAL (GENERAL) HISTORY Medical History History ICD Code allergies ulcers 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 Surgery Date(Month/Year) tonsillectomy Hospitalization History Reason Date(Month/Year) colitis
--- NOTE | 2023-08-22 13:16 | CT_ITS ---
PROCEDURE INFORMATION: Exam: CT Abdomen And Pelvis With Contrast Exam date and time: 08/22/2023 1:47 PM Age: 37 years old Clinical indication: Abdominal pain; Epigastric; Additional info: Severe epigastric pain TECHNIQUE: Imaging protocol: Computed tomography of the abdomen and pelvis with contrast. Radiation optimization: All CT scans at this facility use at least one of these dose optimization techniques: automated exposure control; mA and/or kV adjustment per patient size (includes targeted exams where dose is matched to clinical indication); or iterative reconstruction. Contrast material: ISOVUE; Contrast volume: 75 ml; Contrast route: IV; COMPARISON: MR LUMBAR SPINE WO CON 06/25/2021 1:35 PM FINDINGS: Liver: Unremarkable. Gallbladder and bile ducts: Unremarkable. Pancreas: Unremarkable. Spleen: Unremarkable. Adrenal glands: Unremarkable. Kidneys and ureters: Unremarkable. Stomach and bowel: Moderately distended small bowel loops in the upper abdomen with air-fluid levels and least 2 abrupt transition points in the right upper quadrant with whorled appearance of the adjacent mesentery (coronal series 1001, image 26; sagittal series 1002 image 35). The distended bowel loops measure to the 3.5 cm in maximal diameter. Diffuse mucosal hyperenhancement throughout the colon with minor pericolonic fat stranding in the descending colon compatible with acute infectious or inflammatory colitis. Submucosal fatty infiltration also noted in the bowel hammond in the terminal ileum and throughout the colon. Appendix: No evidence of appendicitis. Intraperitoneal space: No free fluid. No pneumoperitoneum. Vasculature: Unremarkable. Lymph nodes: Unremarkable. Urinary bladder: Unremarkable. Reproductive: Unremarkable. Bones/joints: Bilateral L5 pars defects with grade 1 anterolisthesis of L5 on S1. No evidence of acute osseous abnormality. Soft tissues: Unremarkable. IMPRESSION: 1. Moderately distended small bowel loops in the upper abdomen with air-fluid levels and least 2 abrupt transition points in the right upper quadrant with whorled appearance of the adjacent mesentery. Findings are suggestive of mesenteric adhesions and concerning for early small bowel obstruction, possibly closed loop obstruction. 2. Diffuse mucosal hyperenhancement throughout the colon with minor pericolonic fat stranding in the descending colon compatible with acute infectious or inflammatory colitis. 3. Submucosal fatty infiltration also noted in the bowel hammond in the terminal ileum and throughout the colon. Findings are nonspecific, but can be seen with chronic inflammatory bowel disease. 4. Bilateral L5 pars defects with grade 1 anterolisthesis of L5 on S1.
--- NOTE | 2023-08-22 13:18 | ED_ITS ---
Discharge Plan Disposition Patient Disposition: Admitted Chief Complaint: Abdominal Pain Prescriptions Prescriptions: No Action ibuprofen 800 MG tablet 800 mg PO BID azithromycin 250 mg tablet 250 mg PO DIRECTED Qty: 6 0RF Rx Instructions: Take two (2) tablets on day #1, then one (1) tablet day #2 thru #5 Referrals Follow up/Referrals: Manny García MD [Primary Care Provider] - See instructions Clinical Impressions Clinical Impression: SBO (small bowel obstruction), Colitis Discharge ED Provider: Kurtis Godwin General Adult HPI General Chief complaint: Abdominal Pain Stated complaint: abd pain, vomiting, diarrhea, fever Time Seen by Provider: 08/22/23 13:03 Mode of Arrival: Ambulatory Source of Information: Patient and Spouse Limitations: No Limitations Description of Symptoms (Recalled from ER Triage Doc. by RN): pt c/o severe, stabbing, intermittant and 9/10 abd pain that radiates to his back. pt reports this has been ongoing since 08/19. pt states he has been having N/V/D. pt reports being intermittantly febrile, but afebrile at this time. pt denies urinary symptoms. pt took tylenol and ibuprofen around 0900 without any relief. 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 pt reports no medical hx. History of Present Illness HPI narrative: 37Patient is a male who presents emergency department for evaluation of abdominal pain. Graeme patient had bodyaches and arthralgias followed by significant epigastric pain yesterday. He was seen in urgent care and deemed appropriate for discharge home. Positive exposures to strep throat and fifth disease. Patient was treated empirically with azithromycin. No hematemesis, no chest pain. No other acute complaints at this time. Related Data Home Medications Medication Instructions Recorded Confirmed ibuprofen 800 mg tablet 800 mg PO BID Pain 06/20/21 01/19/23 Previous Rx's Medication Instructions Recorded azithromycin 250 mg tablet 250 mg PO DIRECTED #6 tabs 08/21/23 Allergies Allergy/AdvReac Type Severity Reaction Status Date / Time diclofenac Allergy Verified 08/22/23 13:15 Penicillins Allergy Verified 08/22/23 13:15 [facility] Disclaimer: The information contained in this section may have been updated after the patient was seen, as this information can be updated by other users. 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) Smoking Status: Never smoker alcohol intake: never current occupational status: employed Travel in the last 8 weeks: None household members: spouse housing: house ROS Obtained: Yes Systems reviewed as appropriate & no additional complaints except as documented Physical Exam General General appearance: alert Head Head exam: atraumatic and normocephalic Eye Eye exam: Present PERRL ENT ENT exam: Present mucous membranes moist Neck Neck exam: Present normal inspection Chest Chest inspection: Present normal inspection and symmetric chest wall rise Respiratory Respiratory exam: Present normal lung sounds bilaterally; Absent respiratory distress Cardiovascular Cardiovascular exam: Present regular rate, normal rhythm and tachycardia Abdominal Exam Abdominal exam: Present soft and guarding (Voluntary); Absent tenderness Extremities Exam Extremities exam: Present normal inspection Neurological Exam Neurological exam: Present alert Psychiatric Psychiatric exam: Present normal affect Skin Skin exam: Present warm and dry Medical Decision Making Jeffery Inquiry Pt receiving controlled substance: No Vital Signs: 08/22/23 13:04 08/22/23 13:08 08/22/23 13:37 Temperature 97.5 F L Temperature Source Oral Pulse Rate 102 H Pulse Rate [Left] 102 H Respiratory Rate 20 Blood Pressure 122/78 Blood Pressure [Right Arm] 181/92 H Blood Pressure Mean 100 Blood Pressure Mean [Right Arm] 121 Blood Pressure Source [Right Arm] Automatic Cuff Blood Pressure Position [Right Arm] Sitting 02 Sat by Pulse Oximetry 99 100 Oxygen Delivery Method Room Air 08/22/23 14:00 08/22/23 14:30 Temperature Temperature Source Pulse Rate Pulse Rate [Left] Respiratory Rate Blood Pressure 139/86 122/73 Blood Pressure [Right Arm] Blood Pressure Mean 95 89 Blood Pressure Mean [Right Arm] Blood Pressure Source [Right Arm] Blood Pressure Position [Right Arm] 02 Sat by Pulse Oximetry Oxygen Delivery Method Lab Data Lab Results 08/22/23 13:14: WBC 8.7, RBC 5.61, Hgb 17.4, Hct 50.9, MCV 90.6, MCH 31.0, MCHC 34.3, RDW 13.4, Plt Count 183, MPV 7.3 L, Neut % (Auto) 78.3, Lymph % (Auto) 14.8, [place] % (Auto) 6.0, Eos % (Auto) 0.2, Baso % (Auto) 0.6, Neut # (Auto) 6.8, Lymph # (Auto) 1.3, [place] # (Auto) 0.5, Eos # (Auto) 0.0, Baso # (Auto) 0.1, Sodium 136, Potassium 3.3 L, Chloride 100, Carbon Dioxide 21 L, Anion Gap 18.3 H , BUN 14, Creatinine 1.30 H, Estimated Creat Clear 87, Estimated GFR 62, Est GFR ( Amer) 75, Glucose 137 H, Calcium 9.7, Total Bilirubin 0.7, AST 43, ALT 64, Alkaline Phosphatase 67, Troponin I < 0.01, Total Protein 8.3 H, Albumin 5.0, Globulin 3.3 H, Albumin/Globulin Ratio 1.5, Lipase 74 08/22/23 14:07: Urine Color Yellow, Urine Appearance Clear, Urine pH 5.5, Ur Specific [place] 1.015, Urine Protein Trace, Urine Glucose (UA) Negative, Urine Ketones Negative, Urine Blood Negative, Urine Nitrate Negative, Urine Bilirubin 1+ A, Urine Urobilinogen 0.2, Ur Leukocyte Esterase Negative 08/22/23 13:14 08/22/23 13:14 Orders (Tests/Meds): ED MEDICATIONS Generic Name Dose Route Start Last Admin Trade Name Freq PRN Reason Stop Dose Admin Sodium Chloride 10 ml 08/22/23 13:52 08/22/23 13:54 Sodium Chloride 0.9% 10ml Syr (Rad Only) IV 09/21/23 13:51 10 ml NEEDED PRN Administration Maintain IV Site Discontinued Medications Generic Name Dose Route Start Last Admin Trade Name Freq PRN Reason Stop Dose Admin Acetaminophen 1,000 mg 08/22/23 13:16 08/22/23 13:25 Acetaminophen 1,000mg/100ml Vial IV 08/22/23 13:17 1,000 mg ONCE ONE Administration Belladonna Alkaloids 60 ml 08/22/23 13:16 08/22/23 13:25 Belladonna Alkaloids 60 Ml Ml PO 08/22/23 13:17 60 ml ONCE ONE Administration Lactated Ringer's 1,000 mls @ 999 mls/hr 08/22/23 13:16 08/22/23 13:26 Lactated Ringer's 1000 Ml Bag IV 08/22/23 14:16 999 mls/hr .Q1H1M ONE Administration Iopamidol 75 ml 08/22/23 13:52 08/22/23 13:54 Iopamidol-370 (76%);100ml Bottle IV 08/22/23 13:53 75 ml ONCE ONE Administration Ketorolac Tromethamine 30 mg 08/22/23 13:16 08/22/23 13:26 Ketorolac 30mg/Ml Vial IV 08/22/23 13:17 30 mg ONCE ONE Administration Morphine Sulfate 4 mg 08/22/23 13:16 08/22/23 13:26 Morphine 4mg/Ml Syringe IV 08/22/23 13:17 4 mg ONCE ONE Administration Ondansetron HCl 4 mg 08/22/23 13:16 08/22/23 13:25 Ondansetron 4mg/2ml Vial IV 08/22/23 13:17 4 mg ONCE ONE Administration ORDERS Category Date Time Status CT abdomen pelvis w con Stat Cat Scan 08/22/23 13:16 Completed Consult to General Surgery [CONS] Stat Cons 08/22/23 15:02 Ordered CBC w/Auto Diff [Complete Blood Count Auto Diff] Stat Lab 08/22/23 13:14 Completed CMP [Comprehensive Metabolic Panel] Stat Lab 08/22/23 13:14 Completed Lipase Stat Lab 08/22/23 13:14 Completed Trop I [Troponin I] Stat Lab 08/22/23 13:14 Completed Troponin I Q3H Lab 08/22/23 16:30 Ordered Troponin I Q3H Lab 08/22/23 19:30 Ordered UA [Urinalysis and Microscopic] Stat Lab 08/22/23 14:07 Results EKG Request [ECG Request] Stat Y 08/22/23 13:16 Ordered ECG Data Tracing #1: Independently interpreted by me, rate is 101, rhythm is regular, axis is normal, no ST elevation in anatomical contiguous leads. QTc 379. Medical Decision Narrative: In summary patient is a 37-year-old male past medical history described above who presents emergency department for evaluation of abdominal pain. Patient is hemodynamically stable nontoxic-appearing upon arrival, appearing in pain, afebrile, slight tachycardia. Differential diagnosis includes viral induced pancreatitis, gallstone pancreatitis, among others. Workup will be conducted with hematologic labs, CT abdomen pelvis IV contrast, urinalysis, EKG, single troponin. Initial inventions include multimodal pain control, crystalloid bolus. Initial workup reviewed by me, hematologic labs have no significant leukocytosis, creatinine 1.3 with normal baseline, anion gap 18.3, no critical electrolyte abnormalities. Urinalysis interpreted by me and not consistent with infection. CT imaging remarkable for air-fluid levels with to abrupt transition point in the right upper quadrant with a whorled appearance concerning for mesenteric adhesions and early small bowel obstruction possibly closed-loop. There is diffuse mucosal hyperenhancement of the colon and terminal ileum which may be seen with chronic laboratory bowel disease. The case was discussed with Dr. Huitron regarding management. If patient has persistent vomiting NG tube will be placed however upon repeat evaluation patient had not have continued vomiting so will be deferred in the meantime. Patient will require admission for observation at minimum. The case was subsequently discussed hospital medicine regarding management patient be admitted to their service for continued evaluation at this time. Critical Care Critical Care Time Critical Care Time: No
--- NOTE | 2023-08-22 13:23 | ECG_ITS ---
APPROVED REPORT Exam: Resting ECG HR:101 bpm ECG Measurements Heart Rate 101 AXES NV 148 P 43 QRSd 93 QRS 68 QT 321 T 30 QTc 379 Conclusion SINUS TACHYCARDIA NONSPECIFIC T-WAVE ABNORMALITY ABNORMAL RHYTHM ECG Electronically signed by : CHEPE JONES, 08/23/2023 22:35:05
[2023-08-22] MEDS: ACETAMINOPHEN 1,000MG/100ML VIAL 1000 MG IV (13:25)
[2023-08-22] MEDS: BELLADONNA ALKALOIDS 60 ML ML PO (13:25)
[2023-08-22] MEDS: ONDANSETRON 4MG/2ML VIAL 4 MG IV (13:25)
[2023-08-22] MEDS: KETOROLAC 30MG/ML VIAL 30 MG IV (13:26)
[2023-08-22] MEDS: LACTATED RINGERS 1000ML 1,000 ML 999 ML IV (13:26)
[2023-08-22] MEDS: MORPHINE 4MG/ML SYRINGE 4 MG IV (13:26)
[2023-08-22 13:38] LABS: Chloride 100 mmol/L (98-107); Potassium 3.3 mmoL/L (3.5-5.1); Sodium 136 mmol/L (136-145)
[2023-08-22 13:40] LABS: Blood Urea Nitrogen 14 mg/dl (9-20); Creatinine Clearance Estimated 87 mL/min (50-200); Estimated Glomerular Filt Rate 62 ml/min (>60); GFR (African American) 75 ML/MIN (>60)
[2023-08-22 13:41] LABS: Alanine Aminotransferase 64 U/L (12-78); Albumin/Globulin Ratio 1.5 (1.1-1.8); Alkaline Phosphatase 67 U/L (38-126); Anion Gap 18.3 mEq/L (5-15); Aspartate Amino Transferase 43 U/L (17-59); Bilirubin,Total 0.7 mg/dl (0.2-1.3); Calcium 9.7 mg/dl (8.4-10.2); Carbon Dioxide 21 mmol/L (22.0-30.0); Globulin 3.3 g/dL (1.3-3.2); Glucose 137 mg/dl (74-100); Lipase 74 U/L (23-300); Total Protein,Serum 8.3 g/dl (6.3-8.2)
--- NOTE | 2023-08-22 13:44 | PC.NURSE ---
PT GOING OVER FOR CT
[2023-08-22 13:52] LABS: Basophils # 0.1 K/mm3 (0-0.2); Basophils % 0.6 % (0.1-2.0); Eosinophils % 0.2 % (0.1-12.0); Hematocrit 50.9 % (42.0-52.0); Hemoglobin 17.4 g/dL (14.1-18.0); Lymphocytes # 1.3 K/mm3 (0.7-4.5); Lymphocytes % 14.8 % (10-50); Mean Corpuscular HGB Conc 34.3 g/dL (31.8-35.4); Mean Corpuscular Volume 90.6 fl (80-94); Mean Platelet Volume 7.3 fl (7.4-10.4); Monocytes # 0.5 K/mm3 (0.1-1.0); Neutrophils # 6.8 K/mm3 (1.8-7.8); Neutrophils % 78.3 % (37.0-80.0); Platelet Count 183 K/mm3 (142-424); Red Blood Count 5.61 M/mm3 (4.60-6.20); Red Cell Distribution Width 13.4 % (11.5-17.5); White Blood Count 8.7 K/mm3 (4.8-10.8)
[2023-08-22] MEDS: IOPAMIDOL-370 (76%);100ML BOTTLE 75 ML IV (13:54)
[2023-08-22] MEDS: SODIUM CHLORIDE 0.9% 10ML SYR (RAD ONLY) 10 ML IV (13:54)
--- NOTE | 2023-08-22 13:54 | PC.NURSE ---
I rounded on the pt. He states his pain has decreased to a 5/10, however, it is now constant. pt is still unable to urinate at this time.
[2023-08-22 13:56] LABS: Troponin I < 0.01 ng/ml (0.00-0.034)
[2023-08-22 14:11] LABS: Microscopic, Urine URINE MICROSCOPIC (MICROSCOPIC)
--- NOTE | 2023-08-22 14:11 | PC.NURSE ---
Urine sent to lab
[2023-08-22 14:28] LABS: Appearance,Urine CLEAR (Clear); Blood, Urine Negative (Negative); Color,Urine YELLOW (Yellow); Glucose,Urine (UA) Negative (Negative); Ketones,Urine Negative (Negative); Leukocyte Esterase,Urine Negative (Negative); Nitrate,Urine Negative (Negative); PH,Urine 5.5 (5.0-8.5); Protein,Urine TRACE (Negative); Specific Gravity, Urine 1.015 (1.005-1.030); Urobilinogen,Urine 0.2 EU/dl (0.2)
[2023-08-22 14:33] LABS: Bilirubin,Urine 1+ (Negative)
[2023-08-22 15:03] LABS: Bacteria,Urine Trace /lpf; Mucus,Urine 1+ /lpf; RBC,Urine Occasional #/hpf (0-3)
[2023-08-22 15:20] LABS: C-Reactive Protein 192.9 mg/L (0-4)
--- NOTE | 2023-08-22 15:32 | PC.NURSE ---
Attempted to call report, pt is not assigned to a room yet.
[2023-08-22 15:33] LABS: Erythrocyte Sedimentation Rate 1 mm/hr (0-15)
--- NOTE | 2023-08-22 15:52 | PC.NURSE ---
report called to Isis KELLY
--- NOTE | 2023-08-22 16:45 | EXP.HP ---
History of Present Illness *Admission Date: 08/22/23 *Reason for visit:: nausea and abdominal pain *History of present illness: Mr. Kelley is a 37-year-old male who presented to the ER with complaint of severe stabbing intermittent pain causing him to double over in position throughout the day. Has been going on for the past 2 to 3 days. Has gotten worse and today was the worst/most severe pain with his symptoms. He has been having some nausea and watery stools. Denies cough, fever but did have some mild vomiting. Took Phenergan at home which helped his nausea. Has felt warm with subjective fevers. On arrival to the ER complaining of bodyaches and arthralgias in his legs. No blood in his stool or vomit. Was exposed to strep and fifth disease within the past week with his kids. Patient empirically treated with azithromycin from the [facility] for strep. Workup in the ER with CT of the abdomen showing concern for possible obstruction and inflammation of the mesentery. Surgery was consulted, patient admitted to medicine for further management. [facility] Disclaimer: The information contained in this section may have been updated after the patient was seen, as this information can be updated by other users. 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 Family History (Updated 08/22/23 @ 16:28 by Loraine Nava RN) Other No significant family history Social History (Updated 08/22/23 @ 16:28 by Loraine Nava RN) Smoking Status: Never smoker alcohol intake: never current occupational status: employed Travel in the last 8 weeks: None household members: spouse housing: house Meds Home Medications and Allergies New Prescriptions to Start Prescriptions: Allergies Allergy/AdvReac Type Severity Reaction Status Date / Time diclofenac Allergy Verified 08/22/23 16:23 Penicillins Allergy Verified 08/22/23 16:23 Exam Data for Last 24 hours Vital signs and Labs for Last 24 Hours: Temp Pulse Resp BP Pulse Ox O2 Del Method 97.5 F L 82 20 125/80 99 Room Air 08/22/23 16:24 08/22/23 16:24 08/22/23 16:24 08/22/23 16:24 08/22/23 15:00 08/22/23 16:24 Laboratory Results - last 24 hr 08/22/23 13:14: WBC 8.7, RBC 5.61, Hgb 17.4, Hct 50.9, MCV 90.6, MCH 31.0, MCHC 34.3, RDW 13.4, Plt Count 183, MPV 7.3 L, Neut % (Auto) 78.3, Lymph % (Auto) 14.8, [place] % (Auto) 6.0, Eos % (Auto) 0.2, Baso % (Auto) 0.6, Neut # (Auto) 6.8, Lymph # (Auto) 1.3, [place] # (Auto) 0.5, Eos # (Auto) 0.0, Baso # (Auto) 0.1, ESR 1, Sodium 136, Potassium 3.3 L, Chloride 100, Carbon Dioxide 21 L, Anion Gap 18.3 H, BUN 14, Creatinine 1.30 H, Estimated Creat Clear 87, Estimated GFR 62, Est GFR ( Amer) 75, Glucose 137 H, Calcium 9.7, Total Bilirubin 0.7, AST 43, ALT 64, Alkaline Phosphatase 67, Troponin I < 0.01 08/22/23 13:14: Troponin I Cancelled, C-Reactive Protein 192.9 H, Total Protein 8.3 H, Albumin 5.0, Globulin 3.3 H, Albumin/Globulin Ratio 1.5, Lipase 74 08/22/23 14:07: Urine Color Yellow, Urine Appearance Clear, Urine pH 5.5, Ur Specific [place] 1.015, Urine Protein Trace, Urine Glucose (UA) Negative, Urine Ketones Negative, Urine Blood Negative, Urine Nitrate Negative, Urine Bilirubin 1+ A, Urine Urobilinogen 0.2, Ur Leukocyte Esterase Negative, Urine RBC Occasional, Urine WBC 3-5, Urine Bacteria Trace, Urine Mucus 1+ I & O for Last 24 hours: Intake & Output 08/19/23 08/20/23 08/21/23 08/22/23 23:59 23:59 23:59 23:59 Weight 79.379 kg Constitutional Constitutional: no acute distress *Routine HEENT Exam Head: Present normocephalic Eye: Present EOMI and PERRL ENT: Present mucous membranes moist *Routine Neck Exam Neck: Present supple; Absent lymphadenopathy *Routine Respiratory Exam Respiratory: Present CTA bilaterally *Routine Cardiovascular Exam Cardiovascular: Present RRR *Routine Abdominal Exam Abdominal: Present soft and normoactive bowel sounds; Absent tenderness *Routine Rectal Exam Rectal:: deferred *Routine Genitalia Exam Genitalia:: deferred *Routine Extremities Exam Extremities: Absent cyanosis, clubbing or edema *Routine Skin Exam Skin: Present warm; Absent rash *Routine Neurological Exam Neurological: Present alert and oriented X3 Assessment and Plan *Assessment and plan (1) SBO (small bowel obstruction): Status: Acute Category: Medical Code(s): K56.609 - Unspecified intestinal obstruction, unspecified as to partial versus complete obstruction (2) Colitis: Status: Acute Category: Medical Code(s): K52.9 - Noninfective gastroenteritis and colitis, unspecified Plan 37-year-old male who presents with 2 to 3 days of GI illness. Imaging concerning for bowel obstruction. Discussed case with ER, request admission for serial exams and further management. Medicine agreed to admit. Surgery consulted. Discussed case with surgery, will be her liquid diet. Concern for likely infectious etiology. Differential includes infectious gastroenteritis, inflammatory bowel disease, ileus, bowel obstruction. Problems addressed as follows: Colitis SBO -Gentle fluid resuscitation overnight with LR at 125 cc an hour for 1 L -Clear liquid diet -Zofran for nausea -Stool panel pending to evaluate for infectious pathogens. -Stool calprotectin and fecal lactoferrin for IBD -Antigliadin antibody ordered for the morning to evaluate for celiac -Serial abdominal exams. If develops nausea and vomiting, low threshold to place NG -CT personally reviewed showing some edema of colon Full code Holding on anticoagulation due to patient's mobility
[2023-08-22 17:36] LABS: Troponin I < 0.01 ng/ml (0.00-0.034)
--- NOTE | 2023-08-22 17:41 | EXP.SURG.CON ---
History of Present Illness *Admission Date: 08/22/23 *Reason for visit:: SBO/possible IBD *History of present illness: Patient is a pleasant healthy 37-year-old male. He states that on Wednesday he, 08/19/2022, he had developed some symptoms of headache, myalgias, and sore throat. He does have exposure with child having sore throat and fits disease within a couple weeks preceding that. He subsequently had developed symptoms of nausea, vomiting, and diarrhea. He then developed significant severe stabbing somewhat colicky intermittent pain in the epigastrium radiating into his back beginning this morning on 08/22/2023 approximately 10:00. He has not had any vomiting today or diarrhea. Due to the severity of the pain he presented to the emergency department where he was seen and evaluated. Underwent thorough evaluation. Laboratory findings unremarkable. He has CT scan of the abdomen pelvis performed which revealed the following findings: moderately distended small bowel loops in the upper abdomen with air-fluid levels and at least 2 abrupt transition points in the right upper quadrant with whorled appearance of the adjacent mesentery. Findings of suggestive of mesenteric adhesions and concerning for early small bowel obstruction, possibly closed-loop obstruction. Diffuse mucosal enhancement throughout the colon with minor pericolonic fat stranding in the descending colon compatible with acute infectious or inflammatory colitis. Submucosal fatty infiltration also noted in the terminal ileum and throughout the colon. Findings are nonspecific, but can be seen with chronic inflammatory bowel disease. Recommendations were for inpatient management. Patient was admitted to the hospitalist service. Since admission patient has not had any nausea. His epigastric pain has diminished. He has not had any other similar symptoms except in late 2005 he was admitted for diarrhea which became bloody. He does have a cousin with history of Crohn's disease reportedly. He did undergo outpatient colonoscopy in [place] following that. . [facility] Disclaimer: The information contained in this section may have been updated after the patient was seen, as this information can be updated by other users. 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 Family History (Updated 08/22/23 @ 16:28 by Loraine Nava RN) No significant family history Social History (Updated 08/22/23 @ 16:28 by Loraine Nava RN) Smoking Status: Never smoker alcohol intake: never current occupational status: employed Travel in the last 8 weeks: None household members: spouse housing: house Review of Systems Review of Systems Review of systems:: pertinent systems reviewed and negative unless documented below Meds Home Medications and Allergies New Prescriptions to Start Prescriptions: Allergies Allergy/AdvReac Type Severity Reaction Status Date / Time diclofenac Allergy Verified 08/22/23 16:23 Penicillins Allergy Verified 08/22/23 16:23 Exam (Inpt) Vital signs and Labs for Last 24 Hours: Temp Pulse Resp BP Pulse Ox O2 Del Method 97.5 F L 82 20 125/80 99 Room Air 08/22/23 16:24 08/22/23 16:24 08/22/23 16:24 08/22/23 16:24 08/22/23 15:00 08/22/23 16:54 Laboratory Results - last 24 hr 08/22/23 13:14: WBC 8.7, RBC 5.61, Hgb 17.4, Hct 50.9, MCV 90.6, MCH 31.0, MCHC 34.3, RDW 13.4, Plt Count 183, MPV 7.3 L, Neut % (Auto) 78.3, Lymph % (Auto) 14.8, [place] % (Auto) 6.0, Eos % (Auto) 0.2, Baso % (Auto) 0.6, Neut # (Auto) 6.8, Lymph # (Auto) 1.3, [place] # (Auto) 0.5, Eos # (Auto) 0.0, Baso # (Auto) 0.1, ESR 1, Sodium 136, Potassium 3.3 L, Chloride 100, Carbon Dioxide 21 L, Anion Gap 18.3 H, BUN 14, Creatinine 1.30 H, Estimated Creat Clear 87, Estimated GFR 62, Est GFR ( Amer) 75, Glucose 137 H, Calcium 9.7, Total Bilirubin 0.7, AST 43, ALT 64, Alkaline Phosphatase 67, Troponin I < 0.01 08/22/23 13:14: Troponin I Cancelled, C-Reactive Protein 192.9 H, Total Protein 8.3 H, Albumin 5.0, Globulin 3.3 H, Albumin/Globulin Ratio 1.5, Lipase 74 08/22/23 14:07: Urine Color Yellow, Urine Appearance Clear, Urine pH 5.5, Ur Specific [place] 1.015, Urine Protein Trace, Urine Glucose (UA) Negative, Urine Ketones Negative, Urine Blood Negative, Urine Nitrate Negative, Urine Bilirubin 1+ A, Urine Urobilinogen 0.2, Ur Leukocyte Esterase Negative, Urine RBC Occasional, Urine WBC 3-5, Urine Bacteria Trace, Urine Mucus 1+ 08/22/23 16:50: Troponin I < 0.01 I & O for Labs for Last 24 Hours: Intake & Output 08/20/23 08/21/23 08/22/23 08/23/23 11:59 11:59 11:59 11:59 Weight 175 lb Results Labs 08/22/23 13:14 08/22/23 13:14 Labs: Laboratory Results - last 24 hr 08/22/23 13:14: WBC 8.7, RBC 5.61, Hgb 17.4, Hct 50.9, MCV 90.6, MCH 31.0, MCHC 34.3, RDW 13.4, Plt Count 183, MPV 7.3 L, Neut % (Auto) 78.3, Lymph % (Auto) 14.8, [place] % (Auto) 6.0, Eos % (Auto) 0.2, Baso % (Auto) 0.6, Neut # (Auto) 6.8, Lymph # (Auto) 1.3, [place] # (Auto) 0.5, Eos # (Auto) 0.0, Baso # (Auto) 0.1, ESR 1, Sodium 136, Potassium 3.3 L, Chloride 100, Carbon Dioxide 21 L, Anion Gap 18.3 H, BUN 14, Creatinine 1.30 H, Estimated Creat Clear 87, Estimated GFR 62, Est GFR ( Amer) 75, Glucose 137 H, Calcium 9.7, Total Bilirubin 0.7, AST 43, ALT 64, Alkaline Phosphatase 67, Troponin I < 0.01 08/22/23 13:14: Troponin I Cancelled, C-Reactive Protein 192.9 H, Total Protein 8.3 H, Albumin 5.0, Globulin 3.3 H, Albumin/Globulin Ratio 1.5, Lipase 74 08/22/23 14:07: Urine Color Yellow, Urine Appearance Clear, Urine pH 5.5, Ur Specific [place] 1.015, Urine Protein Trace, Urine Glucose (UA) Negative, Urine Ketones Negative, Urine Blood Negative, Urine Nitrate Negative, Urine Bilirubin 1+ A, Urine Urobilinogen 0.2, Ur Leukocyte Esterase Negative, Urine RBC Occasional, Urine WBC 3-5, Urine Bacteria Trace, Urine Mucus 1+ 08/22/23 16:50: Troponin I < 0.01 Assessment and Plan *Assessment and plan (1) Colitis: Status: Acute Category: Medical Code(s): K52.9 - Noninfective gastroenteritis and colitis, unspecified Plan Given the presentation with the nature of the patient's symptoms with preceding viral type prodromal symptoms this seems more likely an enterocolitis, either infectious or inflammatory. Upon review of the CT scan this appears to be consistent with this. Less likely bowel obstruction. Recommend expectant medical management at this time. .
[2023-08-22] MEDS: LACTATED RINGERS 1000ML 1,000 ML 125 ML IV (18:49)
[2023-08-22 20:00] LABS: Troponin I < 0.01 ng/ml (0.00-0.034)
[2023-08-22] MEDS: PANTOPRAZOLE 40MG VIAL 40 MG IV (20:48)
[2023-08-22] MEDS: SODIUM CHLORIDE 0.9% 10ML VIAL 10 ML IV (20:48)
[2023-08-23] VITALS: TEMP 37.4
[2023-08-23 04:00] VITALS: BP 130/66; PULSE 93; RESP 17; TEMP 37.3; O2SAT 93; BMI 28.3
--- NOTE | 2023-08-23 05:12 | PC.NURSE ---
Pt is alert and oriented x4. Pt's mother visited him at the bedside this evening. Pt's bowel sounds were hyperactive in all 4 quads. Pt is on room air and independent. Pt has slept through most of the shift and has not reported any nausea or vomiting. Pt has gone to the bathroom a couple times through the shift and continues to have diarrhea. A stool sample was collected tonight and sent to lab. Pt does not have any orders for VTEs. Pt's oral temp increased to 99.4 around midnight. No complaints at this time.
[2023-08-23 06:48] LABS: Chloride 103 mmol/L (98-107); Potassium 3.5 mmoL/L (3.5-5.1); Sodium 136 mmol/L (136-145)
--- NOTE | 2023-08-23 06:49 | EXP.SURG.PN ---
Subjective Narrative: Patient without significant complaints. He did have diarrhea numerous times, approximately every 1/2 hour, overnight. He has only some minor abdominal soreness. No nausea. Tolerating clear liquids. Exam Data for Last 24 hours Vital signs and Labs for Last 24 Hours: Temp Pulse Resp BP Pulse Ox O2 Del Method 99.2 F 93 H 17 130/66 93 L Room Air 08/23/23 04:00 08/23/23 04:00 08/23/23 04:00 08/23/23 04:00 08/23/23 04:00 08/23/23 04:54 Laboratory Results - last 24 hr 08/22/23 13:14: WBC 8.7, RBC 5.61, Hgb 17.4, Hct 50.9, MCV 90.6, MCH 31.0, MCHC 34.3, RDW 13.4, Plt Count 183, MPV 7.3 L, Neut % (Auto) 78.3, Lymph % (Auto) 14.8, Wagoner % (Auto) 6.0, Eos % (Auto) 0.2, Baso % (Auto) 0.6, Neut # (Auto) 6.8, Lymph # (Auto) 1.3, [place]agoner # (Auto) 0.5, Eos # (Auto) 0.0, Baso # (Auto) 0.1, ESR 1, Sodium 136, Potassium 3.3 L, Chloride 100, Carbon Dioxide 21 L, Anion Gap 18.3 H, BUN 14, Creatinine 1.30 H, Estimated Creat Clear 87, Estimated GFR 62, Est GFR ( Amer) 75, Glucose 137 H, Calcium 9.7, Total Bilirubin 0.7, AST 43, ALT 64, Alkaline Phosphatase 67, Troponin I < 0.01 08/22/23 13:14: Troponin I Cancelled, C-Reactive Protein 192.9 H, Total Protein 8.3 H, Albumin 5.0, Globulin 3.3 H, Albumin/Globulin Ratio 1.5, Lipase 74 08/22/23 14:07: Urine Color Yellow, Urine Appearance Clear, Urine pH 5.5, Ur Specific [place] 1.015, Urine Protein Trace, Urine Glucose (UA) Negative, Urine Ketones Negative, Urine Blood Negative, Urine Nitrate Negative, Urine Bilirubin 1+ A, Urine Urobilinogen 0.2, Ur Leukocyte Esterase Negative, Urine RBC Occasional, Urine WBC 3-5, Urine Bacteria Trace, Urine Mucus 1+ 08/22/23 16:50: Troponin I < 0.01 08/22/23 19:30: Troponin I < 0.01 I & O for Last 24 hours: Intake & Output 08/20/23 08/21/23 08/22/23 08/23/23 11:59 11:59 11:59 11:59 Intake Total 625 / 625 Output Total 0 / 0 Balance 625 / 625 Weight 180 lb 1.6 oz *Routine Abdominal Exam Abdominal: Present soft; Absent tenderness Progress Note: A&P Assessment and plan (1) SBO (small bowel obstruction): Status: Acute (2) Colitis: Status: Acute Assessment and Plan Assessment and Plan for All Diagnoses:: No evidence of any bowel obstruction at this time. Advance diet.
[2023-08-23 06:50] LABS: Alanine Aminotransferase 45 U/L (12-78); Aspartate Amino Transferase 35 U/L (17-59); Blood Urea Nitrogen 14 mg/dl (9-20); Creatinine Clearance Estimated 96 mL/min (50-200); Estimated Glomerular Filt Rate 68 ml/min (>60); GFR (African American) 82 ML/MIN (>60)
[2023-08-23 06:51] LABS: Albumin Level 3.7 g/dl (3.5-5.0); Albumin/Globulin Ratio 1.4 (1.1-1.8); Alkaline Phosphatase 62 U/L (38-126); Anion Gap 9.5 mEq/L (5-15); Basophils % 0.4 % (0.1-2.0); Bilirubin,Total 0.5 mg/dl (0.2-1.3); Calcium 8.8 mg/dl (8.4-10.2); Carbon Dioxide 27 mmol/L (22.0-30.0); Eosinophils % 0.4 % (0.1-12.0); Globulin 2.7 g/dL (1.3-3.2); Glucose 90 mg/dl (74-100); Hematocrit 45.5 % (42.0-52.0); Lymphocytes # 1.1 K/mm3 (0.7-4.5); Lymphocytes % 16.7 % (10-50); Magnesium 2.3 mg/dl (1.6-2.3); Mean Corpuscular HGB Conc 33.8 g/dL (31.8-35.4); Mean Corpuscular Hemoglobin 30.9 pg (27.0-31.2); Mean Corpuscular Volume 91.6 fl (80-94); Mean Platelet Volume 7.7 fl (7.4-10.4); Monocytes # 0.5 K/mm3 (0.1-1.0); Neutrophils # 4.7 K/mm3 (1.8-7.8); Neutrophils % 74.5 % (37.0-80.0); Platelet Count 157 K/mm3 (142-424); Red Blood Count 4.96 M/mm3 (4.60-6.20); Total Protein,Serum 6.4 g/dl (6.3-8.2); White Blood Count 6.3 K/mm3 (4.8-10.8)
[2023-08-23 07:51] LABS: Adenovirus F 40/41, stool Not Detected (NotDetected); Astrovirus Not Detected (NotDetected); Clostridium Difficile A/B, PCR Not Detected (NotDetected); Cryptosporidium Not Detected (NotDetected); Cyclospora Cayetanesis Not Detected (NotDetected); Entamoeba histolytica Not Detected (NotDetected); Enteroaggregative E coli Not Detected (NotDetected); Enteropathogenic E coli Not Detected (NotDetected); Enterotoxigenic E coli Not Detected (NotDetected); Giardia lamblia Not Detected (NotDetected); Norovirus Not Detected (NotDetected); Plesimonas Shigalloides, PCR Not Detected (NotDetected); Rotavirus A Not Detected (NotDetected); Salmonella, PCR Not Detected (NotDetected); Sapovirus Not Detected (NotDetected); Shiga-like toxin E coli Not Detected (NotDetected); Shigella Enterovasive E coli Not Detected (NotDetected); Vibrio Cholerae Not Detected (NotDetected); Vibrio, PCR Not Detected (NotDetected); Yersinia Entercolitica, PCR Not Detected (NotDetected)
[2023-08-23 08:00] VITALS: BP 138/81; PULSE 81; RESP 16; TEMP 36.9; O2SAT 96
[2023-08-23 08:21] LABS: Hemoglobin 15.5 g/dL (14.1-18.0)
--- NOTE | 2023-08-23 10:32 | EXP.DC.SUM ---
General Admission date:: 08/22/23 Discharge date: 08/23/23 HPI HPI HPI: Mr. Kelley is a 37-year-old male who presented to the ER with complaint of severe stabbing intermittent pain causing him to double over in position throughout the day. Has been going on for the past 2 to 3 days. Has gotten worse and today was the worst/most severe pain with his symptoms. He has been having some nausea and watery stools. Denies cough, fever but did have some mild vomiting. Took Phenergan at home which helped his nausea. Has felt warm with subjective fevers. On arrival to the ER complaining of bodyaches and arthralgias in his legs. No blood in his stool or vomit. Was exposed to strep and fifth disease within the past week with his kids. Patient empirically treated with azithromycin from the [facility] for strep. Workup in the ER with CT of the abdomen showing concern for possible obstruction and inflammation of the mesentery. Surgery was consulted, patient admitted to medicine for further management. Hospital Course Hospital Course Hospital Course: 37-year-old male who presents with 2 to 3 days of GI illness. Imaging concerning for bowel obstruction. Discussed case with ER, request admission for serial exams and further management. Medicine agreed to admit. Surgery consulted. Discussed case with surgery, will be her liquid diet. Concern for likely infectious etiology. Differential includes infectious gastroenteritis, inflammatory bowel disease, ileus, bowel obstruction. Did well during admission. Stool panel came back positive for Campylobacter. Abdominal exam resolved. Stable to discharge home with close outpatient follow-up. Problems addressed as follows: Campylobacter enteritis Ileus -Patient initiated on IV fluids. Admitted to medicine for serial exams and monitoring. Stool diarrhea panel obtained showing positive Campylobacter. Patient overall did well tolerating clear liquid diet. Abdominal exam improved by morning. Stool calprotectin and fecal lactoferrin obtained that were negative. Antigliadin negative for celiac. Given positive finding of infectious etiology, stable to discharge home. Had candid discussion about risks and benefits of azithromycin. As his symptoms are improving and this should be a self-limiting illness, do not see urgent need for azithromycin however given the need for hospitalization and severity of pain, patient would benefit from consideration. Will defer decision to patient at this time. Have sent azithromycin for treatment if he so chooses to take it however if his symptoms resolve in the next 24 to 48 hours, would avoid antibiotics to decrease risk of potential side effects. Patient understands this choice and was appreciative for a backup plan if symptoms recur. Exam Data for Last 24 hours Vital signs and Labs for Last 24 Hours: Temp Pulse Resp BP Pulse Ox O2 Del Method 98.5 F 81 16 138/81 96 Room Air 08/23/23 08:00 08/23/23 08:00 08/23/23 08:00 08/23/23 08:00 08/23/23 08:00 08/23/23 09:48 Laboratory Results - last 24 hr 08/22/23 13:14: WBC 8.7, RBC 5.61, Hgb 17.4, Hct 50.9, MCV 90.6, MCH 31.0, MCHC 34.3, RDW 13.4, Plt Count 183, MPV 7.3 L, Neut % (Auto) 78.3, Lymph % (Auto) 14.8, Jackson % (Auto) 6.0, Eos % (Auto) 0.2, Baso % (Auto) 0.6, Neut # (Auto) 6.8, Lymph # (Auto) 1.3, Jackson # (Auto) 0.5, Eos # (Auto) 0.0, Baso # (Auto) 0.1, ESR 1, Sodium 136, Potassium 3.3 L, Chloride 100, Carbon Dioxide 21 L, Anion Gap 18.3 H, BUN 14, Creatinine 1.30 H, Estimated Creat Clear 87, Estimated GFR 62, Est GFR ( Amer) 75, Glucose 137 H, Calcium 9.7, Total Bilirubin 0.7, AST 43, ALT 64, Alkaline Phosphatase 67, Troponin I < 0.01 08/22/23 13:14: Troponin I Cancelled, C-Reactive Protein 192.9 H, Total Protein 8.3 H, Albumin 5.0, Globulin 3.3 H, Albumin/Globulin Ratio 1.5, Lipase 74 08/22/23 14:07: Urine Color Yellow, Urine Appearance Clear, Urine pH 5.5, Ur Specific [place] 1.015, Urine Protein Trace, Urine Glucose (UA) Negative, Urine Ketones Negative, Urine Blood Negative, Urine Nitrate Negative, Urine Bilirubin 1+ A, Urine Urobilinogen 0.2, Ur Leukocyte Esterase Negative, Urine RBC Occasional, Urine WBC 3-5, Urine Bacteria Trace, Urine Mucus 1+ 08/22/23 16:50: Troponin I < 0.01 08/22/23 19:30: Troponin I < 0.01 08/23/23 05:52: WBC 6.3 D, RBC 4.96, Hgb 15.5 D, Hct 45.5, MCV 91.6, MCH 30.9, MCHC 33.8, RDW 13.0, Plt Count 157, MPV 7.7, Neut % (Auto) 74.5, Lymph % (Auto) 16.7, Jackson % (Auto) 8.0, Eos % (Auto) 0.4, Baso % (Auto) 0.4, Neut # (Auto) 4.7, Lymph # (Auto) 1.1, Jackson # (Auto) 0.5, Eos # (Auto) 0.0, Baso # (Auto) 0.0, Sodium 136, Potassium 3.5, Chloride 103, Carbon Dioxide 27, Anion Gap 9.5, BUN 14, Creatinine 1.20, Estimated Creat Clear 96, Estimated GFR 68, Est GFR ( Amer) 82, Glucose 90 D, Calcium 8.8, Magnesium 2.3, Total Bilirubin 0.5, AST 35, ALT 45 D, Alkaline Phosphatase 62, Total Protein 6.4, Albumin 3.7 D, Globulin 2.7, Albumin/Globulin Ratio 1.4 I & O for Last 24 hours: Intake & Output 08/20/23 08/21/23 08/22/23 08/23/23 23:59 23:59 23:59 23:59 Intake Total 1225 / 1225 Output Total 0 / 0 Balance 1225 / 1225 Weight 79.577 kg 81.692 kg Constitutional Constitutional: no acute distress *Routine HEENT Exam Head: Present normocephalic Eye: Present EOMI and PERRL ENT: Present mucous membranes moist *Routine Neck Exam Neck: Present supple; Absent lymphadenopathy *Routine Respiratory Exam Respiratory: Present CTA bilaterally *Routine Cardiovascular Exam Cardiovascular: Present RRR *Routine Abdominal Exam Abdominal: Present soft, normoactive bowel sounds and tenderness (Minimal, significantly improved since admission); Absent distended, rebound or guarding *Routine Rectal Exam Patient deferred: visual exam *Routine Exam Patient deferred: penile exam *Routine Extremities Exam Extremities: Absent cyanosis, clubbing or edema *Routine Skin Exam Skin: Present warm; Absent rash *Routine Neurological Exam Neurological: Present alert and oriented X3 Results Data Completed and Pending Labs on day of discharge: Labs from last 24 hours 08/23/23 08/22/23 08/22/23 05:52 19:30 16:50 WBC 6.3 D RBC 4.96 Hgb 15.5 D Hct 45.5 MCV 91.6 MCH 30.9 MCHC 33.8 RDW 13.0 Plt Count 157 MPV 7.7 Neut % (Auto) 74.5 Lymph % (Auto) 16.7 Jackson % (Auto) 8.0 Eos % (Auto) 0.4 Baso % (Auto) 0.4 Neut # (Auto) 4.7 Lymph # (Auto) 1.1 Jackson # (Auto) 0.5 Eos # (Auto) 0.0 Baso # (Auto) 0.0 ESR Sodium 136 Potassium 3.5 Chloride 103 Carbon Dioxide 27 Anion Gap 9.5 BUN 14 Creatinine 1.20 Estimated Creat Clear 96 Estimated GFR 68 Est GFR ( Amer) 82 Glucose 90 D Calcium 8.8 Magnesium 2.3 Total Bilirubin 0.5 AST 35 ALT 45 D Alkaline Phosphatase 62 Troponin I < 0.01 < 0.01 C-Reactive Protein Total Protein 6.4 Albumin 3.7 D Globulin 2.7 Albumin/Globulin Ratio 1.4 Lipase Urine Color Urine Appearance Urine pH Ur Specific [place] Urine Protein Urine Glucose (UA) Urine Ketones Urine Blood Urine Nitrate Urine Bilirubin Urine Urobilinogen Ur Leukocyte Esterase Urine RBC Urine WBC Urine Bacteria Urine Mucus 08/22/23 08/22/23 08/22/23 14:07 13:14 13:14 WBC 8.7 RBC 5.61 Hgb 17.4 Hct 50.9 MCV 90.6 MCH 31.0 MCHC 34.3 RDW 13.4 Plt Count 183 MPV 7.3 L Neut % (Auto) 78.3 Lymph % (Auto) 14.8 Jackson % (Auto) 6.0 Eos % (Auto) 0.2 Baso % (Auto) 0.6 Neut # (Auto) 6.8 Lymph # (Auto) 1.3 Jackson # (Auto) 0.5 Eos # (Auto) 0.0 Baso # (Auto) 0.1 ESR 1 Sodium 136 Potassium 3.3 L Chloride 100 Carbon Dioxide 21 L Anion Gap 18.3 H BUN 14 Creatinine 1.30 H Estimated Creat Clear 87 Estimated GFR 62 Est GFR ( Amer) 75 Glucose 137 H Calcium 9.7 Magnesium Total Bilirubin 0.7 AST 43 ALT 64 Alkaline Phosphatase 67 Troponin I Cancelled < 0.01 C-Reactive Protein 192.9 H Total Protein 8.3 H Albumin 5.0 Globulin 3.3 H Albumin/Globulin Ratio 1.5 Lipase 74 Urine Color Yellow Urine Appearance Clear Urine pH 5.5 Ur Specific [place] 1.015 Urine Protein Trace Urine Glucose (UA) Negative Urine Ketones Negative Urine Blood Negative Urine Nitrate Negative Urine Bilirubin 1+ A Urine Urobilinogen 0.2 Ur Leukocyte Esterase Negative Urine RBC Occasional Urine WBC 3-5 Urine Bacteria Trace Urine Mucus 1+ DS: Diagnosis Discharge Diagnosis (1) Campylobacter enteritis: Status: Acute Code(s): A04.5 - Campylobacter enteritis (2) SBO (small bowel obstruction): Status: Resolved Code(s): K56.609 - Unspecified intestinal obstruction, unspecified as to partial versus complete obstruction (3) Colitis: Status: Acute Code(s): K52.9 - Noninfective gastroenteritis and colitis, unspecified Meds Home Medications and Allergies Home Medications Medication Instructions Recorded Confirmed Type azithromycin 500 mg tablet 500 mg PO DAILY 3 days #3 tabs 08/23/23 Rx ondansetron 4 mg disintegrating 4 mg PO Q6H PRN nausea and 08/23/23 Rx tablet vomiting #20 tabs New Prescriptions to Start Prescriptions: Michael Aldridge ondansetron Michael Willis Allergies Allergy/AdvReac Type Severity Reaction Status Date / Time diclofenac Allergy Verified 08/22/23 16:23 Penicillins Allergy Verified 08/22/23 16:23 Discharge Plan Disposition Patient Disposition: Home, Self-Care Condition: Fair Follow up Plan Follow up with: Manny García MD [Primary Care Provider] - 08/31/23 2:15 pm (in [facility]) Prescriptions/Medication Reconciliation: New azithromycin 500 mg tablet 500 mg PO DAILY 3 Days Qty: 3 0RF ondansetron 4 mg tablet,disintegrating 4 mg PO Q6H PRN (Reason: nausea and vomiting) Qty: 20 0RF Problem Reconciliation Problems Reviewed?: Yes Patient Discharge Instructions ACTIVITY: Continue current activity DIET: continue same diet Patient Instructions: DI for Small Bowel Obstruction, DI for Nausea -- Adult, DI for Vomiting -- Adult Providers Primary Care Provider: Manny García Admit Provider: Michael Willis Attending Provider: Michael Willis
[2023-08-23 12:33] LABS: Campylobacter Detected (NotDetected)
--- NOTE | 2023-08-24 12:37 | CARE MANAGER ---
Contacted patient related to hospital discharge. Patient states he is much better. He denies questions or concerns. He picked up his medication and is aware of follow up appointment. LETICIA Guerrero
[2023-08-24 13:12] LABS: Deamidated Gliadin Abs, IgG 2 units (0-19)
[2023-08-27 00:09] LABS: Lactoferrin, Fecal, Quant. 54.31 ug/mL(g) (0.00-7.24)
== END 2023-08-23 15:27 | disposition home or self-care (01) ==
LOC: ER 15:04 → 2ND 16:09
PROVIDERS: Admitting Provider Internal Medicine Adolescent Medicine; Emergency Provider Emergency Medicine; PCP Internal Medicine Adolescent Medicine; Visit Provider Internal Medicine Adolescent Medicine
DX: K52.9 Noninfective gastroenteritis and colitis, unspecified (principal); A04.5 Campylobacter enteritis; K56.609 Unspecified intestinal obstruction, unspecified as to partial versus complete obstruction
CPT/HCPCS: 36415; 74177; 80053; 81001; 83516; 83630; 83690; 83735; 83993; 84484; 85025; 85651; 86140; 87507; 93005; 99285; G0378; J0131; J1885; J2270; J2405; J7120; Q9967

== ENCOUNTER 2023-12-29 07:31 | Outpatient (CLI) | payer OTHER, SELFPAY ==
--- OUTSIDE RECORDS SUMMARY | 2023-12-29 07:45 | XMS_ITS ---
Author Organization [facility] Address [address] [place] [address] [address] [place] [address] Care Team Providers Care Director Of Physician Practices Name Role Phone Francy Sorenson Primary Care Provider FRANCY Sorenson APRN Unavailable Unavailable Allergies Allergen (clinical drug ingredient) Drug/Non Drug Allergy documented on EMR Reaction Allergy Type Onset Date Status Cipro Unknown Drug Allergy Active Flagyl Unknown Drug Allergy Active penicillin Unknown Drug Allergy Active diclofenac diclofenac Unknown Drug Allergy Activ e REASON FOR VISIT Patient here today for a routine follow up Social History Tobacco Use: Social History Observation Description Date Details (start date - stop date) Never Smoker NA - NA Smoking: Question Answer Notes Are you a: nonsmoker Problems Problem Type SNOMED Code ICD Code Onset Dates Problem Status W/U Status Risk Notes Problem 741278468 Familial hypercholesterolemia (E78.01) Active confirmed Vital Signs Temperature 97.4 degrees Fahrenheit 12/10/19 24 Heart Rate 72 /min 12/10/2023 Blood pressure systolic 138 mm Hg 12/10/19 24 Blood pressure diastolic 98 mm Hg 024 Height 5'8 in 12/10/2023 Weight 179.2 lbs 12/10/2023 BMI 27.24 kg/m2 12/10/2023 Encounters Encounter Location Date Provider Diagnosis [facility] [address] [address] 12/10/2023 Francy Sorenson Routine medical exam Z00.00 ; Familial hypercholesterolemia E78.01 ; Male infertility N46.9 ; Fatigue, unspecified type R53.83 and Elevated blood pressure reading R03.0 Assessments Encounter Date Diagnosis (ICD Code) Assessment Notes Treatment Notes Treatment Clinical Notes 12/10/2023 Routine medical exam (ICD-10 - Z00.00) Order provided for routine labs with additon of fatigue panel/semen analysis. Tdap UTD Declines flu shot Will evaluate results and treat/refer as indicated. 12/10/2023 Familial hypercholesterolemia (ICD-10 - E78.01) 12/10/2023 Male infertility (IC D-10 - N46.9) 12/10/2023 Fatigue, unspecified type (ICD-10 - R53.83) 12/10/2023 Elevated blood press ure reading (ICD-10 - R03.0) Monitor b/p at home, FU if > 135/85 consistently Plan Of Treatment Treatment Notes Assessment Notes Routine medical exam Order provided for routine labs with additon of fatigue panel/semen analysis. Tdap UTD Declines flu shot Will evaluate results and treat/refer as indicated. Elevated blood pressure reading Monitor b/p at home, FU if > 135/85 consistently Pending Test Test Name Order Date M-Complete Blood Count Auto Diff 024 M-Comprehensive Metabolic Panel 12/10/19 24 M-Lipid Panel 12/10/2023 M-Thyroid Stimulating Hormone 12/10/2023 M-Semen Analysis 12/10/2023 Next Appt Details Follow Up: 1 Year,anan, Cisco n: Progress Notes * Alexei HUERTA ADOB:1985 (38 yo M)Acc No.[id number]:12/10/2023 Progress Notes Patient:?Elijah HUERTAsimba Rose Provider:?Francy Sorenson APRN :1985???Age:38 Y???Sex:Male Johnathon e:12/10/2023 Address:[address] [place] [address], [place], [place]-[id number] Subjective: * Chief Complaints: * ???1. Patient here today for a routine follow up. * HPI: ???gen:?38 year old male presents for annual wellness exam. Doing well overall. Very active, has no exertional symptoms. Reports has been trying to get for?2 years, one?tubal pregnanct?last year. Seen by TELLER MANAGER with normal work-up. They recommend semen analysis. He has some mild intermittent fatigue, otherwise feels well. No other concerns. Tdap approx 7-8 years ago. Does not take flu shot. * ROS:?ALLERGY:?no?Runny nose.?RESPIRATORY:?no?Shortness of breath.?no?Chest pain.?CARDIOLOGY:?Reviewed, No Symptoms Reported:?Yes.?CONSTITUTIONAL:?no?Loss of appetite.?no?Fever.?no?Fatigue.?DERMATOLOGY:?no?Rash.?GASTROENTEROLOGY:?no?Nausea.?no?Vomiting.?no?Diarrhea.?HEMATOLOGY/LYMPH:?no?Swollen glands.?no?Easy bruising.?NEUROLOGY:?no?Headache.?PSYCHOLOGY:?Reviewed, No Symptoms Reported:?Yes.?UROLOGY:?no?Difficulty urinating.? * Medical History:?Allergies, Ulcers. * 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:?tonsillect jessica . * Hospitalization/Major Diagno stic Procedure:?colitis , [facility] - bacterial infection 08/21-12/2023. * Family History:?Father: dece ased.?Mother: alive.?Paternal Grand Father: alive.?Paternal Grand Mother: alive.?Maternal Grand Father: alive.?Maternal Grand Mother: alive.?Siblings: alive.?Children: alive.?1 sister(s) - healthy. 1 son(s) , 1 daughter(s) - healthy. .? * Social History:?Smoking: no? Are you a:?nonsmoker.?Recreational drug use: no. Exercise: yes. Home smoke detector use: yes. Caffeine: yes, frequency:coffee daily. Living Will: No. Alcohol: no. Sexually active: yes. Travel outside [place]: no. Occupation: [employer]. * Medications:?None * Allergies:?Flagyl, Cipro, pe nicillin, diclofenac. Objective: * Vitals:?Nurse: dana, Pain: 0, Temp: 97.4, RR: 18, HR: 72, BP: 138/98, Ht: 5'8 , Wt: 179.2, BMI:27.24, Repeat BP: 138/88. * Examination: ???General Examination: ?General?Pleasant and Cooperative, NAD on RA,.?Oral cavity:?Moist membranes.?Chest:?normal shape and expansion.?Heart:?Regular Rate and Rhythm, no murmur, rubs or gallops.?HEENT:?unremarkable .?Lungs:?LCTAB, No wheezes, crackles or rhonchi, Good air movement,.?Abdomen:?Soft, NTND, BSNA, No organomegaly or peritoneal signs..?Neurologic Exam:?no focal signs,, normal sensation, strength, tone and reflexes,, Alert and oriented x 3.?Skin:?without acute rashes.?Peripheral pulses:?normal (2+) bilaterally.?Back:?normal,.?Extremities:?normal ROM,, no clubbing, no edema.?neck?supple,, no thyromegaly,, no lymphadenopathy,.?Psych?Normal Mood/Affect.? Assessment: * Assessment: 1.?Routine medical exam - Z0 0.00 (Primary)???2.?Familial hypercholesterolemia - E78.01???3.?Male infertility - N46.9???4.?Fatigue, unspecified type - R53.83???5.?Elevated blood pressure reading - R03.0??? Plan: * Treatment: 2.?Familial hypercholesterol emia?LAB: M-Comprehensive Metabolic Panel ?LAB: M-Lipid Panel 3.?Male infertility?LAB: M-Semen Analysis 4.?Fatigue, unspecified type?LAB: M-Complete Blood Count Auto Diff ?LAB: M-Thyroid Stimulating Hormone5.?Elevated blood pressure reading? Notes: Monitor b/p at home, FU if > 135/85 consistently?? * Follow Up:?1 Year,prn * * Sign off status: Completed true * Provider:?Francy Sorenson APRN Date: ?12/10/2023 Generated for Alecia yoder/Tyler/Alcides on:?12/29/2023 07:45 AM EDT History and Physical Notes * Examination Category Sub-Category Detail Notes General Examination HEENT: unremarkable Heart: Regular Rate and Rhy thm, no murmur, rubs or gallops Lungs: LCTAB, No wheezes, c rackles or rhonchi, Good air movement, Abdomen: Soft, NTND, BSNA, No organomegaly or peritoneal signs. Extremities: normal ROM,, no club lu, no edema Skin: without acute rashes Neurologic Exam: no focal signs,, nor mal sensation, strength, tone and reflexes,, Alert and oriented x 3 Oral cavity: Moist membranes Peripheral pulses: normal (2+) bilatera lly Back: normal, Chest: normal shape and exp ansion neck supple,, no thyromeg kelsie,, no lymphadenopathy, General Pleasant and Coopera tive, NAD on RA, Psych Normal Mood/Affect
--- OUTSIDE RECORDS SUMMARY | 2023-12-29 07:45 | XMS_ITS | Patient Health Record ---
Author Organization [facility] Address [address] [place] [address] [place] [address] Care Team Providers Care Grinder Operator Surface Tool Name Role Phone Elisa Sorenson Primary Care Provider ELISA Sorenson APRN Unavailable Unavailable Manny García Unavailable [phone] Allergies Allergen (clinical drug ingredient) Drug/Non Drug Allergy documented on EMR Reaction Allergy Type Onset Date Status Cipro Unknown Drug Allergy Active Flagyl Unknown Drug Allergy Active penicillin Unknown Drug Allergy Active diclofenac diclofenac Unknown Drug Allergy Activ e Immunizations Vaccine Route Administration Date Status Comme nts Adacel (Tdap) IM Intramuscular 07/19/2008 Administered Social History Tobacco Use: Social History Observation Description Date Details (start date - stop date) Never Smoker NA - NA Smoking: Question Answer Notes Are you a: nonsmoker Problems Problem Type SNOMED Code ICD Code Onset Dates Problem Status W/U Status Risk Notes Problem 422791737 Seasonal allergi es (J30.2) Active confirmed Problem 01466251 BITA (generalized anxiety disorder) (F41.1) Active confirmed Problem 750368872946870 Rotator cuff syn drome of left shoulder (M75.102) Active confirmed Problem 85939334 Inguinal lymphad enitis (I88.9) Active confirmed Problem Leukopenia (38633705) Leukopenia (D72.819) Active confirmed Problem 70375008 Carpal tunnel sy ndrome of left wrist (G56.02) Active confirmed Problem 921879906 Familial hypercholesterolemia (E78.01) Active confirmed Problem 824329388 Acute bilateral low back pain with right-sided sciatica (M54.41) Active confirmed Problem 45671183 Tinnitus of left ear (H93.12) Active confirmed Vital Signs Heart Rate 72 /min 12/10/2023 Temperature 97.4 degrees Fahrenheit 12/10/2023 Blood pressure diastolic 98 mm Hg 12/10/2023 Height 5'8 in 12/10/2023 Blood pressure systolic 138 mm Hg 12/10/2023 Weight 179.2 lbs 12/10/2023 BMI 27.24 kg/m2 12/10/2023 Encounters Encounter Location Date Provider Diagnosis [facility] [address] [address] 08/31/2023 Manny García Campylobacter enteri tis A04.5 [facility] [address] [address] 12/10/2023 Elisa Sorenson Routine medical exam Z00.00 ; Familial hypercholesterolemia E78.01 ; Male infertility N46.9 ; Fatigue, unspecified type R53.83 and Elevated blood pressure reading R03.0 [facility] [address] [place] [address] 02/01/2023 Elisa EdinDebbiepranay [facility] [address] [place] [address] 12/10/2023 Elisa Sorenson Male infertility N46 .9 Assessments Encounter Date Diagnosis (ICD Code) Assessment Notes Treatment Notes Treatment Clinical Notes 12/10/2023 Routine medical exam (ICD-10 - Z00.00) Order provided for routine labs with additon of fatigue panel/semen analysis. Tdap UTD Declines flu shot Will evaluate results and treat/refer as indicated. 12/10/2023 Familial hypercholesterolemia (ICD-10 - E78.01) 12/10/2023 Male infertility (IC D-10 - N46.9) 08/31/2023 Campylobacter enteri tis (ICD-10 - A04.5) Resolved, status post azithromycin therapy. Asymptomatic at this point. Discussed appropriate handwashing precautions going forward. Follow-up as needed 12/10/2023 Male infertility (IC D-10 - N46.9) 12/10/2023 Fatigue, unspecified type (ICD-10 - R53.83) 12/10/2023 Elevated blood press ure reading (ICD-10 - R03.0) Monitor b/p at home, FU if > 135/85 consistently Plan Of Treatment Pending Test Test Name Order Date EKG : In House 03/19/2014 Physical Therapy 11/18/2018 Physical Therapy 02/08/2013 H-CBC with AUTO DIFF 05/14/2015 H-URINE CULTURE 05/14/2015 H-CMP 05/14/2015 H-RAPID PLASMA REAGIN 05/14/2015 H-SED RATE 05/14/2015 H-URINE CHLAMYDIA 05/14/2015 H-URINE GC 05/14/2015 C-CBC 06/10/2020 C-CMP 05/31/2020 C-HEPATITIS PANEL 10/08/2016 M-Complete Blood Count Auto Diff 024 M-Comprehensive Metabolic Panel 12/10/19 24 M-Hemoglobin A1C 06/04/2020 M-Lipid Panel 12/10/2023 M-Thyroid Stimulating Hormone 12/10/2023 M-Semen Analysis 12/10/2023 M-Testosterone 12/10/2023 Insurance Providers Payer Name Payer Address Payer Phone Subscriber Number Group Number Insured Name Patient Relationship to Insured Coverage Start Date Coverage End Date R [address] [address] [place] [address] [phone] [id number] Alexei Kelley Self - patient is the insured Medical (General) History Medical History History ICD Code allergies ulcers 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 Surgery Date(Month/Year) tonsillectomy Hospitalization History Reason Date(Month/Year) [facility] - bacterial infection 08/21-12/2023 colitis
--- OUTSIDE RECORDS SUMMARY | 2023-12-29 07:45 | XMS_ITS ---
Author Organization [facility] Address [address] [facility] [address] [place] [address] Care Team Providers Care Regional Flatbed Truck Driver Name Role Phone Elisa Sorenson Primary Care Provider ELISA Sorenson APRN Unavailable Unavailable Encounters Encounter Location Date Provider Diagnosis [facility] [address] [place] [address] [place] [address] 12/10/2023 Elisa Sorenson Male infertility N46 .9 Assessments Encounter Date Diagnosis (ICD Code) Assessment Notes Treat ment Notes Treatment Clinical Notes 12/10/2023 Male infertility (ICD-10 - N46.9) Plan Of Treatment Pending Test Test Name Order Date M-Testosterone 12/10/2023 Progress Notes * Alexei HUERTA ADOB:1985 (38 yo M)Acc No.[id number]:12/10/2023 Patient:?Elijah HUERTAsimba Rose :1985???Age:38 Y???Sex:Male Address:[address] [place] [address] Subjective: * Chief Complaints: * ??? * Medical History:? * 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:? * Hospitalization/Major Diagno stic Procedure:? * Medications:? Objective: * Vitals:? * Physical Examination:? Assessment: * Assessment: 1.?Male infertility - N46.9 (Primary)??? Plan: * Treatment: * Procedure Codes:? * true * Date:? Generated for Alecia yoder/Tyler/Alcides on:?12/29/2023 07:44 AM EDT
--- OUTSIDE RECORDS SUMMARY | 2023-12-29 07:45 | XMS_ITS ---
Author Organization [facility] Address [address] [place] [facility] [address] [place] [address] Care Team Providers Care Industrial Maintenance Repairer Helper Name Role Phone Elisa Sorenson Primary Care Provider ELISA Sorenson APRN Unavailable Unavailable Manny García Unavailable [phone] Allergies Allergen (clinical drug ingredient) Drug/Non Drug Allergy documented on EMR Reaction Allergy Type Onset Date Status Cipro Unknown Drug Allergy Active Flagyl Unknown Drug Allergy Active penicillin Unknown Drug Allergy Active diclofenac diclofenac Unknown Drug Allergy Activ e REASON FOR VISIT [facility] f/u Social History Tobacco Use: Social History Observation Description Date Details (start date - stop date) Never Smoker NA - NA Smoking: Question Answer Notes Are you a: nonsmoker Vital Signs Temperature 97.8 degrees Fahrenheit 08/31/19 24 Heart Rate 78 /min 08/31/2023 Blood pressure systolic 122 mm Hg 08/31/19 24 Blood pressure diastolic 80 mm Hg 024 Height 5'8 in 08/31/2023 Weight 175.2 lbs 08/31/2023 BMI 26.64 kg/m2 08/31/2023 Encounters Encounter Location Date Provider Diagnosis [address] [address] 08/31/2023 Manny García Campylobacter enteritis A04.5 Assessments Encounter Date Diagnosis (ICD Code) Assessment Notes Treat ment Notes Treatment Clinical Notes 08/31/2023 Campylobacter enteritis (ICD-10 - A04.5) Resolved, status post azithromycin therapy. Asymptomatic at this point. Discussed appropriate handwashing precautions going forward. Follow-up as needed Plan Of Treatment Treatment Notes Assessment Notes Campylobacter enteritis Resolved, status post azithromycin therapy. Asymptomatic at this point. Discussed appropriate handwashing precautions going forward. Follow-up as needed Next Appt Details Follow Up: prn, Reason: Progress Notes * Alexei HUERTA ADOB:1985 (37 yo M)Acc No.[id number]:08/31/2023 HOSP F/U Patient:?Alexei HUERTA A Provider:?Manny García MD :1985???Age:37 Y???Sex:Male Johnathon e:08/31/2023 Address:[address] [place], [place] [id number] Pcp:Elisa Sorenson Subjective: * Chief Complaints: * ???1. [facility] f/u. * HPI: ???gen:? Patient was admitted overnight at [facility] from 08/22/2023 through 08/23/2023 for abdominal pain and small bowel obstruction. ?Treated conservatively and improved, found to have Campylobacter on PCR testing. 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 * Medical History:?Allergies, Ulcers. * 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:?tonsillect jessica . * Hospitalization/Major Diagno stic Procedure:?colitis , [facility] - bacterial infection 08/21-12/2023. * Family History:?Father: [...] active: yes. Travel outside [place]: no. 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 * Medications:?Discontinued ce tirizine 10 mg tablet 1 tab(s) orally once a day , Notes to Pharmacist: prn, Discontinued fluticasone nasal 50 mcg/inh spray 1 spray(s) in each nostril once a day , Notes to Pharmacist: prn, Discontinued ketoconazole topical 2% cream 1 eva applied topically once a day , Medication List reviewed and reconciled with the patient * Allergies:?Flagyl, Cipro, pe nicillin, diclofenac. Objective: * Vitals:?Nurse: dw, Temp: 97. 8, RR: 18, HR: 78, BP: 122/80, Ht: 5'8 , Wt: 175.2, BMI:26.64. * Examination: ???General Examination: ???Feels much better. Exam normal, abdomen soft and nontender. No CVA tenderness. Assessment: * Assessment: 1.?Campylobacter enteritis - A04.5 (Primary)? Plan: * Treatment: * Follow Up:?prn * * Sign off status: Completed true * Provider:?Manny García MD Date :?08/31/2023 Generated for Alecia yoder/Tyler/Oviitting on:?12/29/2023 07:45 AM EDT
[2023-12-29 08:02] LABS: Basophils # 0.2 K/mm3 (0-0.2); Eosinophils # 0.2 K/mm3 (0.0-0.4); Hematocrit 47.8 % (42.0-52.0); Hemoglobin 16.7 g/dL (14.1-18.0); Lymphocytes # 1.6 K/mm3 (0.7-4.5); Mean Corpuscular Volume 88.6 fl (80-94); Monocytes # 0.5 K/mm3 (0.1-1.0); Monocytes % 8.6 % (1.7-9.3); Neutrophils # 3.2 K/mm3 (1.8-7.8); Neutrophils % 56.5 % (37.0-80.0); Platelet Count 192 K/mm3 (142-424); Red Blood Count 5.39 M/mm3 (4.60-6.20); Red Cell Distribution Width 13.6 % (11.5-17.5); White Blood Count 5.6 K/mm3 (4.8-10.8)
[2023-12-29 08:56] LABS: Albumin Level 4.9 g/dl (3.5-5.0); Chloride 105 mmol/L (98-107); Potassium 4.1 mmoL/L (3.5-5.1); Sodium 140 mmol/L (136-145)
[2023-12-29 08:58] LABS: Blood Urea Nitrogen 17 mg/dl (9-20); Estimated Glomerular Filt Rate 83 ml/min (>60); GFR (African American) 101 ML/MIN (>60)
[2023-12-29 08:59] LABS: Alanine Aminotransferase 82 U/L (12-78); Albumin/Globulin Ratio 1.8 (1.1-1.8); Alkaline Phosphatase 69 U/L (38-126); Anion Gap 10.1 mEq/L (5-15); Aspartate Amino Transferase 45 U/L (17-59); Bilirubin,Total 0.9 mg/dl (0.2-1.3); Calcium 9.8 mg/dl (8.4-10.2); Carbon Dioxide 29 mmol/L (22.0-30.0); Chol/HDL Ratio 5.8 (1-3.5); Cholesterol 239 mg/dl (140-200); Globulin 2.7 g/dL (1.3-3.2); Glucose 99 mg/dl (74-100); HDL Cholesterol 41 mg/dl (40-60); Total Protein,Serum 7.6 g/dl (6.3-8.2); Triglycerides 115 mg/dl (30-150); VLDL Cholesterol 23 mg/dL (0-40)
[2023-12-29 09:10] LABS: Direct LDL Cholesterol 149.19 mg/dL (100-129)
[2023-12-29 09:28] LABS: Thyroid Stimulating Hormone 1.87 uIU/mL (0.465-4.68)
[2023-12-30 08:23] LABS: Testosterone,Total 565 ng/dL (264-916)
== END 2023-12-29 23:59 | disposition home or self-care (01) ==
LOC: LAB 07:44
PROVIDERS: Nurse Practitioner Family; PCP Internal Medicine Adolescent Medicine; Visit Provider Internal Medicine Adolescent Medicine
DX: Z00.00 Encounter for general adult medical examination without abnormal findings (principal); E78.01 Familial hypercholesterolemia; R53.83 Other fatigue
CPT/HCPCS: 36415; 80050; 80053; 80061; 84403; 84443; 85025

== ENCOUNTER 2024-12-15 15:39 | Emergency (ER) | payer OTHER, SELFPAY ==
--- OUTSIDE RECORDS SUMMARY | 2024-06-17 17:30 | XMS_ITS ---
Author Organization [facility] Address [address] [facility] [address] [facility] [address] [place] [address] Care Team Providers Care Stretch Machine Operator Name Role Phone Elisa Sorenson Primary [...] Encounter Encounters Encounter Location Date Provider Diagnosis [facility] [address] [place] [facility] [address] [facility] [address] [place] [address] 06/17/2024 Provider Migration Plan Of Treatment No Information Progress Notes * Alexei HUERTA ADOB:1985 (39 yo M)Acc No.[id number]:06/17/2024 Patient: Alexei MCBRIDE A Provider: Chiqui cornelius Migration :1985 A ge:38 Y S ex:Male Date:06/17/2024 Address:[address] [place], [place] [id number] Pcp:Elisa Sorenson Subjective: * Chief Complaints: * 1 . Multum To Medispan Conversion Encounter. * Medical History: * Allergies: F lagyl, Cipro, Penicillin, Diclofenac. Objective: * Vitals: Assessment: Plan: * Treatment: * * Electronic signature of Prov ider Migration on 12/15/2024 at 04:06 PM EDT Sign off status: Pending * Provider: Chiqui cornelius Migration Date: 0 06/17/2024 Generated for Alecia yoder/Tyler/Alcides on: 1 04:06 PM EDT
[2024-12-15] VITALS (7 sets, daily range): BP systolic 139–206; BP diastolic 76–102; PULSE 76–120; RESP 11–20; TEMP 36.8–36.9; O2SAT 96–99; BMI 25.8
[2024-12-15] MEDS: LACTATED RINGERS 1000ML 1,000 ML 999 ML IV (15:50)
--- NOTE | 2024-12-15 15:52 | ED_ITS ---
Discharge Plan Disposition Patient Disposition: Home, Self-Care Prescriptions Prescriptions: No Action azithromycin 500 mg tablet 500 mg PO DAILY 3 Days Qty: 3 0RF ondansetron 4 mg tablet,disintegrating 4 mg PO Q6H PRN (Reason: nausea and vomiting) Qty: 20 0RF Activity Restrictions/Add. Instructions Additional Instructions/Restrictions: Your workup today is very reassuring. He likely had a vasovagal event leading to you passing out. Follow-up with your primary care physician as needed. Be sure that you hydrate well over the next several days by drinking plenty of water, sugar-free Gatorade and Pedialyte. Avoid standing still for long periods of time. Avoid bending your knees. If you develop any new or worsening symptoms, or if you become concerned for your health for any reason, return to the emergency department for evaluation. Clinical Impressions Clinical Impression: Syncope Instructions Patient Instructions: DI for Syncope in Adults (Fainting), DI for Syncope in Children (Fainting) Print Language Print Language: Persian Discharge ED Provider: Estevan Hwang Adult HPI General Chief complaint: Syncope Stated complaint: Weakness Time Seen by Provider: 12/15/24 15:52 Mode of Arrival: Ambulatory Source of Information: Patient Description of Symptoms (Recalled from ER Triage Doc. by RN): pt states he was at work when all of a sudden both of his legs got weak and he got tunnel vision and felt like he was going to pass out, upon triage pt is hypertensive and fbs was 103, pt is alox4, neg stroke scale History of Present Illness HPI narrative: Alexei Kelley is a 39-year-old male with no significant past medical history who presents to the emergency department after a presyncopal/syncopal event. 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 He then came close to passing out or fully passed out. His coworkers caught him and carried him to the truck. Patient states that he feels more back to baseline now and denies any chest pain, shortness of breath, headache, vision changes, abdominal pain, nausea or vomiting. He reports intermittent diarrhea when he eats things that do not agree with him. He denies any weakness at this time. He states that this is never happened before. Related Data Previous Rx's ?Medication ?Instructions ?Recorded azithromycin 500 mg tablet 500 mg PO DAILY 3 days #3 t abs 08/23/23 ondansetron 4 mg disintegrating 4 mg PO Q6H PRN nausea and 08/23/23 tablet vomiting #20 tabs Allergies Allergy/AdvReac Type Severity Reaction Status Date / Time diclofenac Allergy Verified 08/22/23 16:23 Penicillins Allergy Verified 08/22/23 16:23 [facility] Disclaimer: The information contained in this section may have been updated after the patient was seen, as this information can be updated by other users. 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 Family History (Updated 08/22/23 @ 16:28 by Loraine Nava RN) Other No significant family history Social History (Updated 08/22/23 @ 16:28 by Loraine Nava RN) Smoking Status: Never smoker alcohol intake: never current occupational status: employed Travel in the last 8 weeks?: None household members: spouse housing: house Have you lived/traveled outside US in past 30 days?: No Contact w/someone who lives/traveled outside US past 30 days?: No Exposure to someone with infectious disease in past 14 days?: No Do you have a fever (greater than 100.4 F or 38 C)?: No Have you tested positive for COVID-19?: No Exposed to someone with COVID-19 in past 14 days?: No Do you have a sore throat?: No Do you have a cough?: No Do you have any weakness?: No Do you have any diarrhea?: No Are you experiencing any unusual bleeding?: No Do you have any muscle aches/pain?: No Do you have any abdominal pain?: No Are you experiencing loss of taste or smell?: No Other Medical History Have you received the Flu Vaccine for this season: No Have you received the Pneumonia Vaccine: No ROS Obtained: Yes Systems reviewed as appropriate & no additional complaints except as documented Physical Exam General General appearance: alert and in no apparent distress Head Head exam: atraumatic Eye Eye exam: Present normal appearance, PERRL and EOMI ENT ENT exam: Present normal external ear exam Neck Neck exam: Present full ROM Chest Chest inspection: Present symmetric chest wall rise Respiratory Respiratory exam: Present normal lung sounds bilaterally; Absent respiratory distress, wheezes or stridor Cardiovascular Cardiovascular exam: Present regular rate and normal rhythm Abdominal Exam Abdominal exam: Present soft; Absent distention, tenderness, guarding or rigidity exam: Present deferred Extremities Exam Extremities exam: Present normal inspection Back Exam Back exam: Present normal inspection Neurological Exam Neurological exam: Present alert, oriented X3 and normal gait; Absent motor sensory deficit Psychiatric Psychiatric exam: Present normal affect Skin Skin exam: Present warm and dry Medical Decision Making Medical Records Screening: Per USPSTF and CDC recommendations, given the prevalence of disease in our region, it is our hospital?s policy to screen for HIV and viral Hepatitis for all patients aged 18 and over and those with ongoing risk factors. Jeffery Inquiry Pt receiving controlled substance: No Vital Signs: 12/15/24 15:42 12/15/24 16:30 12/15/24 16:47 Temperature 98.3 F Temperature Source Oral Pulse Rate 89 87 Pulse Rate [Left Radial] 120 H Respiratory Rate 20 18 20 Blood Pressure 151/100 H 164/102 H Blood Pressure [Right Arm] 206/90 H Blood Pressure Mean [Right Arm] 128 02 Sat by Pulse Oximetry 99 96 97 Oxygen Delivery Method Room Air Room Air 12/15/24 17:00 12/15/24 17:30 12/15/24 18:00 Temperature Temperature Source Pulse Rate 88 81 91 H Pulse Rate [Left Radial] Respiratory Rate 17 11 L 14 Blood Pressure 163/100 H 153/93 H 152/95 H Blood Pressure [Right Arm] Blood Pressure Mean [Right Arm] 02 Sat by Pulse Oximetry 97 98 98 Oxygen Delivery Method Room Air Room Air Room Air Lab Data Lab Results 12/15/24 15:45: WBC 7.6, RBC 5.29, Hgb 16.2, Hct 45.9, MCV 86.8, MCH 30.6, MCHC 35.3, RDW 11.9, Plt Count 222, MPV 8.6, Neut % (Auto) 35.6 L, Lymph % (Auto) 47.0, [place] % (Auto) 12.1 H, Eos % (Auto) 4.4, Baso % (Auto) 0.8, Neut # (Auto) 2.7, Lymph # (Auto) 3.6, [place] # (Auto) 0.9, Eos # (Auto) 0.3, Baso # (Auto) 0.1, D-Dimer 0.51 H, Sodium 141, Potassium 3.3 L, Chloride 104, Carbon Dioxide 24, A nion Gap 16.3 H, BUN 18, Creatinine 1.20, Estimated Creat Clear 87, Estimated GFR 67, Est GFR ( Amer) 81, Glucose 112 H, Calcium 9.3, Magnesium 2.2, Total Bilirubin 0.7, AST 37, ALT 84 H, Alkaline Phosphatase 81, Troponin I < 0.01, Total Protein 7.6, Albumin 4.9, Globulin 2.7, Albumin/Globulin Ratio 1.8, TSH 1.65, Free T4 0.97 12/15/24 16:38: Urine Color Yellow, Urine Appearance Clear, Urine pH 6.0, Ur Specific [place] >= 1.030, Urine Protein Negative, Urine Glucose (UA) Negative, Urine Ketones Trace, Urine Blood Negative, Urine Nitrate Negative, Urine Bilirubin Negative, Urine Urobilinogen 0.2, Ur Leukocyte Esterase Negative, Urine RBC Occasional, Urine WBC 10-20, Ur Squamous Epith Cells Occasional, Urine Bacteria 1+, Urine Mucus 4+ 12/15/24 18:11: Troponin I < 0.01 12/15/24 15:45 12/15/24 15:45 Orders (Tests/Meds): ED MEDICATIONS Discontinued Medications Generic Name Dose Route Start Last Admin Trade Name Freq PRN Reason Stop Dose Admin Acetaminophen 1,000 mg 12/15/24 17:41 12/15/24 17:43 Acetaminophen 500mg Tab PO 12/15/24 17:42 1,000 mg ONCE ONE Administration Lactated Ringer's 1,000 mls @ 999 mls/hr 12/15/24 15:48 12/15/24 17:40 Lactated Ringer's 1000 Ml Bag IV 12/15/24 16:48 Infused .Q1H1M ONE Infusion Potassium Chloride 40 meq 12/15/24 18:37 12/15/24 18:53 Potassium Chloride 20meq Tab PO 12/15/24 18:38 40 meq ONCE ONE Administration ORDERS Category Date Time Status CXR --portable [XR chest portable] Stat Exams 12/15/24 15:58 Completed Complete Blood Count Auto Diff Stat Lab 12/15/24 15:45 Completed Comprehensive Metabolic Panel Stat Lab 12/15/24 15:45 Completed D-Dimer Stat Lab 12/15/24 15:45 Completed Free T4 (Free Thyroxine) Stat Lab 12/15/24 15:45 Completed Magnesium Stat Lab 12/15/24 15:45 Completed TSH [Thyroid Stimulating Hormone] Stat Lab 12/15/24 15:45 Completed Troponin I Q3H Lab 12/15/24 18:11 Completed Troponin I Q3H Lab 12/15/24 22:00 Ordered Troponin I Stat Lab 12/15/24 15:45 Completed UA [Urinalysis and Microscopic] Stat Lab 12/15/24 16:38 Completed Urine Culture Stat Micro 12/15/24 16:38 Received ECG Data Tracing #1: I reviewed this ECG and interpreted as documented below: normal sinus rhythm, no ST elevation or depression. QTc of 384 HEART Score History (anamnesis): Slightly suspicious ECG: Normal Age: <45 years Risk factors: No known risk factors Troponin: </= normal limit HEART Score: 0 Medical Decision Narrative: Alexei Kelley is a 39-year-old male with no significant past medical history who presents to the emergency department after a presyncopal/syncopal event. 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 He then came close to passing out or fully passed out. His coworkers caught him and carried him to the truck. Patient states that he feels more back to baseline now and denies any chest pain, shortness of breath, headache, vision changes, abdominal pain, nausea or vomiting. He reports intermittent diarrhea when he eats things that do not agree with him. He denies any weakness at this time. He states that this is never happened before. On arrival, Patient's initial blood pressure was elevated at 206/90, however improved to 152/95 without intervention. He was initially tachycardic in the 120 was not complaining of any chest pain or shortness of breath. Breathing comfortably on room air with appropriate oxygen saturation. Afebrile. Physical exam, stated above, revealed normal well- appearing male that is nontoxic. Cardiopulmonary exam is unremarkable. GCS 15. Abdomen is soft, nontender nondistended. Pupils equal round reactive to light. No focal neurological deficits. He has been able to ambulate here in the emergency department without difficulty. Differential diagnosis includes, but is not limited to: Vasovagal syncope, cardiac syncope, pulmonary embolism, thyroid disorder, orthostatic syncope, electrolyte derangement, dehydration, low concern for stroke etiology given patient has no neurological deficits. Workup in the emergency department included: CBC, D-dimer, CMP, troponin, TSH/free T4, magnesium level, EKG, chest x-ray, urinalysis. EKG interpreted by me personally. Normal sinus rhythm. No ST elevation or depression. QTc normal at 384. Chest x-ray interpreted by me personally. No focal consolidation, no pneumothorax, no widened mediastinum, no enlargement of the cardiac silhouette. Unremarkable chest x-ray. See radiology report for details. Laboratory studies are grossly unremarkable and nonactionable. No leukocytosis, no anemia, patient D-dimer very slightly elevated at 0.51 but negative per YEARS criteria. Patient's sodium was normal at 141. Potassium mildly low at 3.3. Anion gap very mildly elevated 16.3. Magnesium normal at 2.2. Very mildly elevated ALT of 84, however this appears to be his baseline. Liver enzymes and bilirubin otherwise within normal limits. Initial troponin less than 0.01. Thyroid studies within normal limits. Urinalysis with 4+ bacteria and 10-20 white blood cells but leukocyte esterase and nitrate negative. Patient is not having any urinary symptoms. This is unlikely to represent a urinary tract infection. Repeat troponin is also negative. On reassessment, patient has remained stable. He has had no recurrence of his symptoms. Patient's workup is grossly unremarkable and nonactionable. Patient likely had a vasovagal syncopal episode due to prolonged standing. Patient was encouraged to hydrate well over the next few days and avoid standing still and locking knees for a long period of time. All questions were answered. He demonstrated understanding and was in agreement this plan. I encouraged him to follow with his primary care physician as needed. He was then discharged from the emergency department in stable condition. Critical Care Critical Care Time Critical Care Time: No
--- NOTE | 2024-12-15 15:53 | ECG_ITS ---
APPROVED REPORT Exam: Resting ECG HR:94 bpm ECG Measurements Heart Rate 94 AXES NV 160 P 67 QRSd 93 QRS 60 QT 332 T 55 QTc 384 Conclusion SINUS RHYTHM NORMAL ECG UNCONFIRMED REPORT Electronically signed by : SOHAIL GARCIA, 12/16/2024 05:39:39
[2024-12-15 15:54] LABS: Hematocrit 45.9 % (42.0-52.0); Hemoglobin 16.2 g/dL (14.1-18.0); Immature Granulocytes % 0.1 %; Mean Corpuscular HGB Conc 35.3 g/dL (31.8-35.4); Mean Corpuscular Hemoglobin 30.6 pg (27.0-31.2); Mean Corpuscular Volume 86.8 fl (80-94); Nucleated Red Blood Cells % 0 %; Platelet Count 222 K/mm3 (142-424); Red Blood Count 5.29 M/mm3 (4.60-6.20); Red Cell Distribution Width-SD 38.0 fL; White Blood Count 7.6 K/mm3 (4.8-10.8)
--- NOTE | 2024-12-15 15:58 | XR_ITS ---
FINAL REPORT CLINICAL HISTORY: Syncope COMPARISON: 02/13/2020 FINDINGS: SINGLE VIEW CHEST The heart is normal in size. The mediastinum is unremarkable. The lungs are clear. There is no pneumothorax. IMPRESSION: No acute process. Reviewed, Interpreted and Dictated by James Carreon MD Transcribed by Desire Perez Authenticated and [facility]
--- OUTSIDE RECORDS SUMMARY | 2024-12-15 16:06 | XMS_ITS | Patient Health Record ---
Author Organization [facility] Address [address] [place] [address] Care Team Providers Care Graduate Fellow Name Role Phone Elias Sorenson Primary Care Provider ELISA Sorenson APRN Unavailable Unavailable Migration, Provider Unavailable Unavailable Allergies Allergen (clinical drug ingredient) Drug/Non Drug Allergy documented on EMR Reaction Allergy Type Onset Date Status ciprofloxacin Cipro Unknown Drug Allergy Act paddy metronidazole Flagyl Unknown Drug Allergy Act paddy Penicillin Unknown Drug Allergy Active diclofenac Diclofenac Unknown Drug Allergy Activ e Results Component Value Reference Range Notes M-Complete Blood Count Auto Diff Reviewed date:12/30/2023 09:55:03 AM Interpretation: Performing Lab: Notes/Report: WBC 5.6 4.8-10.8 K/mm3 RBC 5.39 4.60-6.20 M/mm3 HGB 16.7 14.1-18.0 g/dL HCT 47.8 42.0-52.0 % MCV 88.6 80-94 fl MCH 31.0 27.0-31.2 pg MCHC 35.0 31.8-35.4 g/dL RDW 13.6 11.5-17.5 % PLT 192 142-424 K/mm3 MPV 7.0 7.4-10.4 fl NE% 56.5 37.0-80.0 % LY% 29.0 10-50 % MO% 8.6 1.7-9.3 % EO% 3.0 0.1-12.0 % BA% 3.0 0.1-2.0 % NE# 3.2 1.8-7.8 K/mm3 LY# 1.6 0.7-4.5 K/mm3 MO# 0.5 0.1-1.0 K/mm3 EO# 0.2 0.0-0.4 K/mm3 BA# 0.2 0-0.2 K/mm3 M-Comprehensive Metabolic Pa radha Reviewed date:12/30/2023 09:55:03 AM Interpretation: Performing Lab: Notes/Report: NA 140 136-145 mmol/L K 4.1 3.5-5.1 mmoL/L CL 105 98-107 mmol/L CO2 29 22.0-30.0 mmol/L GAP 10.1 5-15 mEq/L BUN 17 9-20 mg/dl CREATT 1.00 0.66-1.25 mg/dl GFRAA 101 >60 ML/MIN EGFR 83 >60 ml/min GLU 99 74-100 mg/dl CA 9.8 8.4-10.2 mg/dl BILIT 0.9 0.2-1.3 mg/dl AST 45 17-59 U/L ALT 82 12-78 U/L TP 7.6 6.3-8.2 g/dl ALB 4.9 3.5-5.0 g/dl GLOB 2.7 1.3-3.2 g/dL AGRATIO 1.8 1.1-1.8 ALP 69 38-126 U/L M-Lipid Panel Reviewed date:12/30/2023 09:55:03 AM Interpretation: Performing Lab: Notes/Report: Patient Fasting? Y TRIG 115 30-150 mg/dl CHOL 239 140-200 mg/dl DLDL 149.19 100-129 mg/dL VLDL 23 0-40 mg/dL HDL 41 40-60 mg/dl CHLHDL 5.8 1-3.5 M-Thyroid Stimulating Hormon e Reviewed date:12/30/2023 09:55:03 AM Interpretation: Performing Lab: Notes/Report: TSH 1.87 0.465-4.68 uIU/mL M-Testosterone Reviewed date:12/30/2023 09:55:03 AM Interpretation: Performing Lab: Notes/Report: lcTESTT 565 264-916 ng/dL Adult male reference interval is based on a population of healthy nonobese males (BMI <30) between 19 and 39 years old. [email or web address] Glover.al. JCEM 2017,102;3005-4660. PMID: [id number]. Performed at: [address] [id number] Blacking Machine Operator: Miguel Chapin PhD, Phone: [phone] Immunizations Vaccine Route Administration Date Status Comme nts Adacel (Tdap) IM Intramuscular 07/19/2008 Administered Social History Tobacco Use: Social History Observation Description Date Details (start date - stop date) Never Smoker NA - NA Smoking: Question Answer Notes Are you a: nonsmoker Problems Problem Type SNOMED Code ICD Code Onset Dates Problem Status W/U Status Risk Notes Problem Seasonal allergy (589127507) Seasonal allergies (J30.2) Active confirmed Problem Generalized anxiety disorder (89545398) BITA (generalized anxiety disorder) (F41.1) Active confirmed Problem Left rotator cuff syndrome (555400933829134) Rotator cuff syndrome of left shoulder (M75.102) Active confirmed Problem Lymphadenitis (30481417) Inguinal lymphadenitis (I88.9) Active confirmed Problem Leukopenia (05830986) Leukopenia (D72.819) Activ e confirmed Problem Carpal tunnel syndrome of left wrist (511837367799986) Carpal tunnel syndrome of left wrist (G56.02) Active confirmed Problem Familial hypercholesterolemia (707280530) Familial hypercholesterolemia (E78.01) Active confirmed Problem Sciatica (45843484) Acute bilate ral low back pain with right-sided sciatica (M54.41) Active confirmed Problem Tinnitus of left ear (8636593617421) Tinnitus of left ear (H93.12) Active confirmed Vital Signs Heart Rate 82 /min 09/18/2024 Temperature 98.3 degrees Fahrenheit 09/18/2024 Blood pressure diastolic 80 mm Hg 09/18/2024 Height 5'8 in 09/18/2024 Blood pressure systolic 122 mm Hg 09/18/2024 Weight 176 lbs 09/18/2024 BMI 26.76 kg/m2 09/18/2024 Encounters Encounter Location Date Provider Diagnosis [facility] [address] [place] [address] 06/17/2024 Provider Migration [facility] [address] [place] [address] 09/18/2024 Elisa Sorenson Atypical chest pain R07.89 Assessments Encounter Date Diagnosis (ICD Code) Assessment Notes Treatment Notes Treatment Clinical Notes Section Notes 09/18/2024 Atypical chest pain (ICD-10 - R07.89) Reassurance EKG NSR- no ectopy or ischemia. Likely MS in nature and complicated by his health anxiety.Stretche s, ibuprofen, ice/heat for comfort. Signs of angina that warrant urgent FU discussed. Plan Of Treatment Pending Test Test Name [...] Coverage End Date R [address] [address] [place] [address] [phone] [id number] [phone] Alexei Kelley Self - patient is the insured Medical (General) History Medical History History ICD Code allergies ulcers 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 Surgery Date(Month/Year) tonsillectomy Hospitalization History Reason Date(Month/Year) [facility] - bacterial infection 08/21-12/2023 colitis
[2024-12-15 16:13] LABS: Alanine Aminotransferase 84 U/L (12-78); Albumin Level 4.9 g/dl (3.5-5.0); Albumin/Globulin Ratio 1.8 (1.1-1.8); Alkaline Phosphatase 81 U/L (38-126); Anion Gap 16.3 mEq/L (5-15); Aspartate Amino Transferase 37 U/L (17-59); Bilirubin,Total 0.7 mg/dl (0.2-1.3); Blood Urea Nitrogen 18 mg/dl (9-20); Calcium 9.3 mg/dl (8.4-10.2); Carbon Dioxide 24 mmol/L (22.0-30.0); Chloride 104 mmol/L (98-107); Creatinine Clearance Estimated 87 mL/min (50-200); Creatinine,Serum 1.20 mg/dl (0.66-1.25); Estimated Glomerular Filt Rate 67 ml/min (>60); GFR (African American) 81 ML/MIN (>60); Globulin 2.7 g/dL (1.3-3.2); Glucose 112 mg/dl (74-100); Potassium 3.3 mmoL/L (3.5-5.1); Sodium 141 mmol/L (136-145); Total Protein,Serum 7.6 g/dl (6.3-8.2)
[2024-12-15 16:21] LABS: Magnesium 2.2 mg/dl (1.6-2.3)
[2024-12-15 16:26] LABS: D-Dimer 0.51 ug/mL (0.0-0.5)
[2024-12-15 16:35] LABS: Troponin I < 0.01 ng/ml (0.00-0.034)
[2024-12-15 16:40] LABS: Free T4 (Free Thyroxine) 0.97 ng/dl (0.78-2.19)
[2024-12-15 16:49] LABS: Microscopic, Urine URINE MICROSCOPIC (MICROSCOPIC)
[2024-12-15 16:52] LABS: Bilirubin,Urine Negative (Negative); Color,Urine YELLOW (Yellow); Glucose,Urine (UA) Negative (Negative); Ketones,Urine TRACE (Negative); Leukocyte Esterase,Urine Negative (Negative); PH,Urine 6.0 (5.0-8.5); Protein,Urine Negative (Negative); Specific Gravity, Urine >= 1.030 (1.005-1.030); Urobilinogen,Urine 0.2 EU/dl (0.2)
[2024-12-15 16:53] LABS: Thyroid Stimulating Hormone 1.65 uIU/mL (0.465-4.68)
[2024-12-15] MEDS: ACETAMINOPHEN 500MG TAB 1000 MG PO (17:43)
[2024-12-15 17:48] LABS: Bacteria,Urine 1+ /lpf; Mucus,Urine 4+ /lpf; RBC,Urine Occasional #/hpf (0-3); Squamous Epithelial Cell,Urine Occasional #/hpf (0-5)
[2024-12-15 18:41] LABS: Troponin I < 0.01 ng/ml (0.00-0.034)
[2024-12-15] MEDS: POTASSIUM CHLORIDE 20MEQ TAB 40 MEQ PO (18:53)
== END 2024-12-15 19:15 | disposition home or self-care (01) ==
PROVIDERS: Emergency Provider Student in an Organized Health Care Education/Training Program; PCP Internal Medicine Adolescent Medicine
DX: R55 Syncope and collapse (principal); R53.1 Weakness
CPT/HCPCS: 71045; 80053; 81001; 83735; 84439; 84443; 84484; 85025; 85378; 87086; 93005; 96360; 99284; 99285; J7120

== ENCOUNTER 2024-12-19 10:43 | Outpatient (CLI) | payer OTHER, SELFPAY ==
--- OUTSIDE RECORDS SUMMARY | 2024-06-17 17:30 | XMS_ITS ---
Author Organization [facility] Address [address] [facility] [address] [facility] [address] [place] [address] Care Team Providers Care Radiation Protection Technician Name Role Phone Elisa Sorenson Primary Care Provider ELISA Sorenson APRN Unavailable Unavailable Migration, Provider Unavailable Unavailable Allergies Allergen (clinical drug ingredient) Drug/Non Drug Allergy documented on EMR Reaction Allergy Type Onset Date Status ciprofloxacin Cipro Unknown Drug Allergy Act paddy metronidazole Flagyl Unknown Drug Allergy Act paddy Penicillin Unknown Drug Allergy Active diclofenac Diclofenac Unknown Drug Allergy Activ e REASON FOR VISIT Multum To Medispan Conversion Encounter Encounters Encounter Location Date Provider Diagnosis [facility] [address] [place] [address] [facility] [address] [place] [address] 06/17/2024 Provider Migration Plan Of Treatment No Information Progress Notes * Alexei HUERTA ADOB:1985 (39 yo M)Acc No.[id number]:06/17/2024 Patient: Alexei MCBRIDE A Provider: Chiqui cornelius Migration :1985 A ge:38 Y S ex:Male Date:06/17/2024 Address[id number] Pcp:Elisa Sorenson Subjective: * Chief Complaints: * 1 . Multum To Medispan Conversion Encounter. * Medical History: * Allergies: F lagyl, Cipro, Penicillin, Diclofenac. Objective: * Vitals: Assessment: Plan: * Treatment: * * Electronic signature of Prov ider Migration on 12/19/2024 at 10:47 AM EDT Sign off status: Pending * Provider: Chiqui cornelius Migration Date: 0 06/17/2024 Generated for Alecia yoder/Tyler/Alcides on: 1 10:47 AM EDT
--- OUTSIDE RECORDS SUMMARY | 2024-12-16 06:30 | XMS_ITS ---
Author Organization [facility] D [place] Address [address] [facility] [address] [facility] [address] [place] [address] Care Team Providers Care Dog Raiser Name Role Phone Francy Sorenson Primary Care Provider [phone] FRANCY Sorenson APRN Unavailable Unavailable Allergies Allergen (clinical drug ingredient) Drug/Non Drug Allergy documented on EMR Reaction Allergy Type Onset Date Status ciprofloxacin Cipro Unknown Drug Allergy Act paddy metronidazole Flagyl Unknown Drug Allergy Act paddy Penicillin Unknown Drug Allergy Active diclofenac Diclofenac Unknown Drug Allergy Activ e Reason For Referral Reason echo with bubble Diagnosis 1 Syncope, unspecified syncope type (R55) Referral Organization [facility] [place] Referring Provider First Name Francy Referring Provider Last Name Delta Referring Provider Speciality Family Pra ctice Referred Organization [facility] Referred Address [address] [facility] [address] [facility], [place],[address] Referred Provider Specialty Diagnostic R adiology General Notes Karishma Bermudez 2024 12:09:07 PM >sent to [facility] to schedule marked Urgent Referral Priority Urgent [...] W/U Status Risk Notes Problem Essential hypertension (61654716) Essential hypertension (I10) Active confirmed Vital Signs Temperature 97.3 degrees Fahrenheit 12/17/19 25 Blood pressure systolic 134 mm Hg 12/17/19 25 Blood pressure diastolic 92 mm Hg 025 Heart Rate 82 /min 12/16/2024 Height 5'8 in 12/16/2024 Weight 173 lbs 12/16/2024 BMI 26.3 kg/m2 12/16/2024 Encounters Encounter Location Date Provider Diagnosis [facility] [address] [facility] [address] [place] [address] 12/16/2024 Francy McNees Syncope, unspecified syncope type [...] in 2 weeks Urgent return precautions discussed Pending Test Test Name Order Date Echocardiogram - Bubble Study 12/16/2024 Referrals Referral Date Details 12/17/2024 12/17/2024, echo wit h bubble, [address] [facility], [place], [address], Next Appt Details Follow Up: 2 Weeks,prn, Reas on: Progress Notes * Alexei HUERTA ADOB:1985 (39 yo M)Acc No.[id number]:12/16/2024 Progress Notes Patient: Alexei MCBRIDE Provider: Juan Sorenson APRN :1985 A ge:39 Y S ex:Male Date:12/16/2024 Address:[facility] [place], [id number] Subjective: * Chief Complaints: * 1 . [...] ssential hypertension - I10 Plan: * Treatment: Notes: ED records reviewed Likely related to [...] true * Provider: Juan Sorenson APRN Date: 1 Generated for Alecia yoder/Tyler/Oviitting on: 10:47 AM EDT History and Physical Notes * [...]
--- NOTE | 2024-12-19 | CA_ITS ---
APPROVED REPORT EXAM: Comprehensive 2D, Doppler, and color-flow Echocardiogram Machine Maintenance Repairer: Kary Arnold CRT Ht: 5 ft 7 in Wt: 170lbs BSA: 1.89 BP: 152/95 mmHg Indications: Syncope, HTN B/S ORDERED Echo Enhancing Agent Indication: Rule out Shunt Agent(s) / Amount(s) Used: Agitated Saline 3 cc Comments: B/S ordered for syncope 2D Dimensions LA Volume 24.80 mL LA Volume Index 12.80 mL/m2 (M/F) 16-34 M-Mode Dimensions RVDd 3.18 cm (0.9-2.6) LA Diam 3.03 cm (1.9-4.0) LVDd 4.68 cm (3.5-5.7) LVDs 2.81 cm (3.5-5.7) IVSd 0.97 cm (0.6-1.1) PWd 0.70 cm (0.6-1.1) EF (Teich) 70.60% FS 40.00% EDV (Teich) 101.30 mL TAPSE 1.36 (<1.7) ESV (Teich) 29.80 mL LV Diastology E Decel Time 190 (160-240 msec) E/A Ratio 0.99 MED A' 10.30 cm/s LAT A' 8.50 cm/s Aortic Valve AO Peak GR. 5.20 mmHg Mitral Valve MV A Velocity 79.0 (40-130 cm/s) E/A Ratio 0.99 Pulmonary Valve PV Peak Velocity 65.0 (50-150 cm/s) Tricuspid Valve TR P. Velocity 217.00 cm/s RAP Estimate 10.00 mmHg RVSP 28.80 mmHg Left Ventricle The left ventricle is normal size. Left ventricular systolic function is normal. The left ventricular ejection fraction is within the normal range. There is normal left ventricular wall thickness. There is normal LV segmental wall motion. The left ventricular diastolic function is normal. LVEF is 55% Right Ventricle The right ventricle is normal size. The right ventricular systolic function is normal. Atria The left atrium size is normal. The right atrium size is normal. There is no color Doppler evidence of interatrial shunt. Agitated saline administration demonstrates presence of interatrial shunt. Aortic Valve The aortic valve opens well. There is no hemodynamically significant aortic valvular stenosis. No aortic regurgitation is present. Mitral Valve The mitral valve is normal in structure. No evidence of mitral valve stenosis. Trace mitral regurgitation is present. Tricuspid Valve The tricuspid valve leaflets are thin and pliable. Trace tricuspid regurgitation. There is insufficient TR jet to estimate RVSP. Pulmonic Valve The pulmonary valve is grossly normal in structure. Trace pulmonic valve regurgitation is present. Great Vessels The aortic root is normal in size. IVC is normal in size and collapses >50% with inspiration. Pericardium There is no pericardial effusion. Other Information Study Quality: Fair Conclusion Normal biventricular size and systolic function. No significant valvular stenosis or regurgitation. Agitated saline administration demonstrates presence of interatrial shunt. In the setting of syncopal symptoms and presence of interatrial shunt on this TTE, further evaluation with cardiac MRI (shunt protocol) may be suggested to evaluate RV size and Qp:Qs ratio to determine hemodynamic significance of the interatrial shunt. Electronically signed by : She Hathaway MD 12/19/2024 12:50:17
--- OUTSIDE RECORDS SUMMARY | 2024-12-19 10:47 | XMS_ITS | Patient Health Record ---
Author Organization [facility] Address [address] [place] [address] Care Team Providers Care Endoscopy Nurse Name Role Phone Elisa Sorenson Primary Care [...] e Results Component Value Reference Range Notes M-Thyroid Stimulating Hormon e Reviewed date:12/30/2023 09:55:03 AM Interpretation: Performing Lab: Notes/Report: TSH 1.87 0.465-4.68 uIU/mL M-Lipid Panel Reviewed date:12/30/2023 09:55:03 AM Interpretation: Performing Lab: Notes/Report: Patient Fasting? Y TRIG 115 30-150 mg/dl CHOL 239 140-200 mg/dl DLDL 149.19 100-129 mg/dL VLDL 23 0-40 mg/dL HDL 41 40-60 mg/dl CHLHDL 5.8 1-3.5 M-Comprehensive Metabolic Pa radha Reviewed date:12/30/2023 09:55:03 [...] AGRATIO 1.8 1.1-1.8 ALP 69 38-126 U/L M-Complete Blood Count Auto Diff Reviewed date:12/30/2023 [...] 0.2 0.0-0.4 K/mm3 BA# 0.2 0-0.2 K/mm3 M-Testosterone Reviewed date:12/30/2023 09:55:03 AM Interpretation: Performing Lab: Notes/Report: lcTESTT 565 264-916 ng/dL Adult male reference interval is based on a population of healthy nonobese males (BMI <30) between 19 and 39 years old. [email or web address] Glover.akin. JCEM 2017,102;9084-4224. PMID: [id number]. Performed at: [address] [id number] Cable Repairer: Miguel Chapin PhD, Phone: [phone] Medications Medication SIG (Take, Route, Frequency, Duration) Notes Start Date End Date Status busPIRone HCl 5 MG 1 tablet Orally Twice a day; Duration: 30 days As needed 12/18/2024 Active amLODIPine Besylate 5 MG 1 tablet Orally Once a day; Duration: 30 days 12/16/2024 Active Immunizations Vaccine Route Administration Date Status Comme nts Adacel (Tdap) IM Intramuscular 07/19/2008 Administered Social History Tobacco Use: Social History Observation Description Date Details (start date - stop date) Never Smoker NA - NA Smoking: Question Answer Notes Are you a: nonsmoker Problems Problem Type SNOMED Code ICD Code Onset Dates Problem Status W/U Status Risk Notes Problem Essential hypertension (63137241) Essential hypertension (I10) Active confirmed Problem Seasonal allergy (836771399) Seasonal allergies (J30.2) Active confirmed Problem Generalized anxiety disorder (15448217) BITA (generalized anxiety disorder) (F41.1) Active confirmed Problem Left rotator cuff syndrome (556536096727441) Rotator cuff syndrome of left shoulder (M75.102) Active confirmed Problem Lymphadenitis (14382562) Inguinal lymphadenitis (I88.9) Active confirmed Problem Leukopenia (40519487) Leukopenia (D72.819) Activ e confirmed Problem Carpal tunnel syndrome of left wrist (748412710463344) Carpal tunnel syndrome of left wrist (G56.02) Active confirmed Problem Familial hypercholesterolemia (706603207) Familial hypercholesterolemia (E78.01) Active confirmed Problem Sciatica (48448402) Acute bilate ral low back pain with right-sided sciatica (M54.41) Active confirmed Problem Tinnitus of left ear (4131957800711) Tinnitus of left ear (H93.12) Active confirmed Vital Signs Heart Rate 82 /min 12/16/2024 Temperature 97.3 degrees Fahrenheit 12/16/2024 Blood pressure diastolic 92 mm Hg 12/16/2024 Height 5'8 in 12/16/2024 Blood pressure systolic 134 mm Hg 12/16/2024 Weight 173 lbs 12/16/2024 BMI 26.3 kg/m2 12/16/2024 Encounters Encounter Location Date Provider Diagnosis [facility] [address] [place] [address] 06/17/2024 Provider Migration [facility] [address] [place] [address] 09/18/2024 Elisa McNees Atypical chest pain R07.89 [facility] [address] [place] [address] 12/16/2024 Elisa McNees Syncope, unspecified syncope type R55 ; Postural dizziness R42 ; Hypokalemia E87.6 and Essential hypertension I10 [facility] [address] [facility] [address] [place] [address] 12/18/2024 Elisa McNees Assessments Encounter Date Diagnosis (ICD Code) Assessment Notes Treatment Notes Treatment Clinical Notes Section Notes 09/18/2024 Atypical chest pain (ICD-10 - R07.89) Reassurance EKG NSR- no ectopy or ischemia. Likely MS in nature and complicated by his health anxiety.Stretch es, ibuprofen, ice/heat for comfort. Signs of angina that warrant urgent FU discussed. 12/16/2024 Syncope, unspecified syncope type (ICD-10 - [...] hypertension (ICD-10 - I10) Plan Of Treatment Pending Test Test Name Order Date EKG : In House 03/19/2014 Physical Therapy 02/08/2013 Physical Therapy 11/18/2018 H-CBC with AUTO DIFF 05/14/2015 H-URINE CULTURE 05/14/2015 H-CMP 05/14/2015 H-RAPID PLASMA REAGIN 05/14/2015 H-SED RATE 05/14/2015 H-URINE CHLAMYDIA 05/14/2015 H-URINE GC 05/14/2015 C-CBC 06/10/2020 C-CMP 05/31/2020 C-HEPATITIS PANEL 10/08/2016 Echocardiogram - Bubble Study 12/16/2024 M-Complete Blood Count Auto Diff 024 M-Comprehensive Metabolic Panel 12/10/19 24 M-Hemoglobin A1C 06/04/2020 M-Lipid Panel 12/10/2023 M-Thyroid Stimulating Hormone 12/10/2023 M-Semen Analysis 12/10/2023 M-Testosterone 12/10/2023 Insurance Providers Payer Name Payer Address Payer Phone Subscriber Number Group Number Insured Name Patient Relationship to Insured Coverage Start Date Coverage End Date R [place] [id number] [place] [address] [id number] Alexei Kelley Self - patient is the insured Medical (General) History Medical History History ICD Code allergies ulcers 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 Surgery Date(Month/Year) tonsillectomy Hospitalization History Reason Date(Month/Year) [facility] - bacterial infection 08/21-12/2023 colitis
== END 2024-12-19 23:59 | disposition home or self-care (01) ==
LOC: RT 10:43
PROVIDERS: PCP Nurse Practitioner Family; Visit Provider Nurse Practitioner Family
DX: Q21.19 Other specified atrial septal defect (principal); R55 Syncope and collapse; I10 Essential (primary) hypertension
CPT/HCPCS: 93306

== ENCOUNTER 2024-12-20 13:34 | Outpatient (CLI) | payer OTHER, SELFPAY | END 2024-12-20 23:59 | disposition home or self-care (01) | LOC: RT 13:35 | PROVIDERS: PCP Nurse Practitioner Family; Visit Provider Nurse Practitioner Family | DX: R55 Syncope and collapse (principal) | CPT/HCPCS: 93225 ==

== ENCOUNTER 2024-12-21 06:39 | Outpatient (CLI) | payer OTHER, SELFPAY ==
[2024-12-21 07:19] LABS: Blood Urea Nitrogen 17 mg/dl (9-20); Creatinine,Serum 1.10 mg/dl (0.66-1.25); Estimated Glomerular Filt Rate 74 ml/min (>60); GFR (African American) 90 ML/MIN (>60)
--- NOTE | 2024-12-21 15:00 | CT_ITS ---
FINAL REPORT TECHNIQUE: Axial imaging of the chest is obtained after the administration of contrast. 3-D MIP reformatted images were also obtained and reviewed per PE protocol. CLINICAL HISTORY: Rule out PE COMPARISON: None FINDINGS: The pulmonary arteries are well filled. There is no evidence of pulmonary embolus. There is no aortic dissection. Heart size is normal. There is no mediastinal, hilar, or axillary lymphadenopathy. There is evidence of prior granulomatous disease. There are no suspicious lung nodules. No consolidations. There is no pleural or pericardial effusion. Limited evaluation of the upper abdomen is without acute abnormality. No acute osseous abnormality. IMPRESSION: No evidence of pulmonary embolism or aortic dissection. No acute intrathoracic abnormality. Reviewed, Interpreted and Dictated by An Angelo MD Transcribed by Kristy Desai Authenticated and [facility]
[2024-12-21] MEDS: 0.9 % SODIUM CHLORIDE 50 ML VIAL 10 ML IV (15:41)
[2024-12-21] MEDS: IOPAMIDOL-370 (76%);100ML BOTTLE 70 ML IV (15:41)
== END 2024-12-21 23:59 | disposition home or self-care (01) ==
PROVIDERS: PCP Nurse Practitioner Family; Visit Provider Nurse Practitioner Family
DX: R55 Syncope and collapse (principal); R79.89 Other specified abnormal findings of blood chemistry
CPT/HCPCS: 36415; 71275; 82565; 84520; Q9967

== ENCOUNTER 2024-12-22 07:57 | Outpatient (CLI) | payer OTHER, SELFPAY ==
--- OUTSIDE RECORDS SUMMARY | 2024-06-17 17:30 | XMS_ITS ---
Author Organization [facility] Address [address] [facility] [address] [facility] [address] [place] [address] Care Team Providers Care Capsule Maker Name Role Phone Elisa Sorenson Primary Care [...] Encounter Encounters Encounter Location Date Provider Diagnosis [facility] [address] [place] [address] [facility] [address] [place] [address] 06/17/2024 Provider Migration Plan Of Treatment No Information Progress Notes * YUSEFAlexei SAENZ ADOB:1985 (39 yo M)Acc No.[id number]:06/17/2024 Patient: Alexei MCBRIDE A Provider: Chiqui cornelius Migration :1985 A ge:38 Y S ex:Male Date:06/17/2024 Address:[id number] Pcp:Elisa Sorenson Subjective: * Chief Complaints: * 1 . Multum To Medispan Conversion Encounter. * Medical History: * Allergies: F lagyl, Cipro, Penicillin, Diclofenac. Objective: * Vitals: Assessment: Plan: * Treatment: * * Electronic signature of Prov ider Migration on 12/22/2024 at 07:58 AM EDT Sign off status: Pending * Provider: Chiqui cornelius Migration Date: 0 06/17/2024 Generated for Alecia yoder/Tyler/Alcides on: 1 07:58 AM EDT
--- OUTSIDE RECORDS SUMMARY | 2024-12-16 06:30 | XMS_ITS ---
Author Organization [facility] D [facility] Address [address] [facility] [address] [address] [facility] [address] [place] [address] Care Team Providers Care Paste Up Worker Name Role Phone Francy Sorenson Primary Care Provider [phone] FRANCY Sorenson APRN Unavailable Unavailable Allergies Allergen [...] Syncope, unspecified syncope type (R55) Referral Organization [facility] [place] Referring Provider First Name Francy Referring Provider Last Name Delta Referring Provider Speciality Family Pra ctice Referred Organization [facility] Referred Address [address] [facility] [address] [facility], [place],[address], Referred Provider Specialty Diagnostic R adiology General Notes Karishma Bermudez 2024 12:09:07 PM >sent to [facility] to schedule marked Urgent Referral Priority Urgent [...] W/U Status Risk Notes Problem Essential hypertension (70153259) Essential hypertension (I10) Active confirmed Vital Signs Temperature 97.3 degrees Fahrenheit 12/17/19 25 Blood pressure systolic 134 mm Hg 12/17/19 25 Blood pressure diastolic 92 mm Hg 025 Heart Rate 82 /min 12/16/2024 Height 5'8 in 12/16/2024 Weight 173 lbs 12/16/2024 BMI 26.3 kg/m2 12/16/2024 Encounters Encounter Location Date Provider Diagnosis [facility] [address] [place] [address] 12/16/2024 Francy McNees Syncope, unspecified syncope type [...] wit h bubble, [address] [facility], [place], [address], Next Appt Details Follow Up: 2 Weeks,prn, Reas on: Progress Notes * Alexei HUERTA ADOB:1985 (39 yo M)Acc No.[id number]:12/16/2024 Progress Notes Patient: Alexei MCBRIDE Provider: Juan Sorenson, LOCO :1985 A ge:39 Y S ex:Male Date:12/16/2024 Address:[facility] [id number] Subjective: * Chief Complaints: * 1 . [...] Date: Generated for Alecia yoder/Tyler/eTransmitting on: 1 07:58 AM EDT History and Physical Notes * [...]
--- OUTSIDE RECORDS SUMMARY | 2024-12-20 09:10 | XMS_ITS ---
Author Organization [facility] Address [address] [facility] [address] [facility] [address] [place] [address] Care Team Providers Care Pants Presser Name Role Phone Elisa Sorenson Primary Care Provider [phone] ELIAS Sorenson APRN Unavailable Unavailable REASON FOR VISIT MRI Brain order and Holter Monitor Encounters Encounter Location Date Provider Diagnosis [facility] [address] [place], [place] [address] 12/20/2024 Elisa Sorenson Syncope and collapse R55 [...] Order Date Holter Monitor, 48 hour 12/20/2024 MRI BRAIN WOW 12/20/2024 Progress Notes * Alexei HUERTA ADOB:1985 (39 yo M)Acc No.[id number]:12/20/2024 Patient: Rose FELTON Alexei Rose :1985 A ge:39 Y S ex:Male Address:[place] [address] Subjective: * Chief Complaints: * M RI [...] WOW* URGENTWith and Without Contr ast CPT [id number] auth requiredPower, Karishma 12/20/2024 01:16:22 PM EDT > * 4.?Dizzy spells?Imaging: Holter Monitor, 48 hour* Power, Karishma 12/20/2024 01: 13:10 PM EDT > * ?Imaging: MRI BRAIN WOW* URGENTWith and Without Contr ast CPT [id number] auth requiredPower, Karishma 12/20/2024 01:16:22 PM EDT > * * Procedure Codes: * true * Date: Generated for Alecia yoder/Tyler/eTransmitting on: 1 07:58 AM EDT
--- OUTSIDE RECORDS SUMMARY | 2024-12-21 04:15 | XMS_ITS ---
Author Organization [facility] Address [address] [place] [address] Care Team Providers Care Roll Line Operator Name Role Phone Elisa Sorenson Primary Care Provider [phone] ELISA Sorenson APRN Unavailable Unavailable REASON FOR VISIT passed out last Wednesday, head ache Encounters Encounter Location Date Provider Diagnosis [facility] [address] [place] [address] 12/21/2024 Elisa Sorenson Plan Of Treatment No Information Progress Notes * MARIBELElijah Joelh ADOB:1985 (39 yo M)Acc No.[id number]:12/21/2024 Progress Notes Patient: Alexei MCBRIDE Provider: Juan Sorenson APRN :1985 A ge:39 Y S ex:Male Date:12/21/2024 Address:[place] Subjective: * Chief Complaints: * 1 . passed out last Wednesday, head ache. * Medical History: Objective: * Vitals: Assessment: Plan: * Treatment: * * Electronic signature of Nilton Sorenson APRN on 12/22/2024 at 07:58 AM EDT Sign off status: Pending * Provider: Juan Sorenson APRN Date: 1 Generated for Alecia yoder/Tyler/Alcides on: 1 07:58 AM EDT
--- OUTSIDE RECORDS SUMMARY | 2024-12-22 07:58 | XMS_ITS | Encounter Summary ---
Author Organization [facility] Address [address] [place] [address] Care Team Providers Care Orthopedic Coder Name Role Phone Unavailable Primary Care Provider Unavailabl e Reason for Referral * Consultation (Routine) - Authorized Specialty Diagnoses / Procedures Referred By Contac t Referred To Contact Cardiology Diagnoses Atrial septal defect Syncope and collapse Francy Cox APRN [address] [place] [address] Phone: tel: fax: Primo Gaxiola MD [address] [place] [address] Phone: tel: fax: Referral ID Status Reason Start Date Expiration Date Visits Requested Visits Authorized [id number] Authorized Specialty Services Required 12/20/2024 06/21/2026 1 1 Encounter Details Date Type Department Care Team (Late st Contact Info) Description 12/20/2024 Community Orders [facility] [address] [place] [address] Francy Cox APRN [address] [place] [address] Atrial septal defect (Primary Dx); Syncope and collapse Social History Tobacco Use Types Packs/Day Years Used Date Smoking Tobacco: Never Assessed Sex and Gender Information Value Date Recorded Sex Assigned at Not on file Legal Sex Male 7:35 PM EDT Gender Identity Not on file Sexual Orientation Not on file documented as of this encounter Plan of Treatment Scheduled Referrals Name Type Priority Associated Diagnoses Order Schedule Ambulatory referral to [facility] / [facility] Outpatient Referral Routine Atrial septal defect Syncope and collapse Expected: 12/27/2024, Expires: 06/23/2026 documented as of this encounter Visit Diagnoses Diagnosis Atrial septal defect- Primary Ostium secundum type atrial septal defect Syncope and collapse documented in this encounter
--- OUTSIDE RECORDS SUMMARY | 2024-12-22 07:58 | XMS_ITS | Clinical Summary ---
Author Organization [facility] Address [address] [place] [address] Care Team Providers Care In Store Representative Name Role Phone Unavailable Primary Care Provider Unavailabl e Encounters Date Type Department Care Team Description 12/20/2024 [facility] [address] [place] [address] Francy Cox APRN Atrial septal defect (Primary Dx); Syncope and collapse from Last 3 Months Social History Tobacco Use Types Packs/Day Years Used Date Smoking Tobacco: Never Assessed Sex and Gender Information Value Date Recorded Sex Assigned at Not on file Legal Sex Male 7:35 PM EDT Gender Identity Not on file Sexual Orientation Not on file Plan of Treatment Not on file
--- NOTE | 2024-12-22 07:59 | MR_ITS ---
FINAL REPORT TECHNIQUE: Multiplanar and multisequence imaging of the brain was obtained before and after contrast injection. CLINICAL HISTORY: SYNCOPE AND COLLAPSE/ARTRIAL SEPTAL DEFECT/D. HEADACHE FINDINGS: There is no mass effect or midline shift. There is a dilated perivascular spaces as an incidental finding. No hydrocephalus. The cerebellum and brainstem have an unremarkable appearance. There are no areas of restricted diffusion on diffusion weighted images to suggest acute infarct. Soft tissues are without acute abnormality. Post contrast images reveal no pathologic contrast enhancement. IMPRESSION: No acute intracranial abnormality and no pathologic contrast enhancement. Reviewed, Interpreted and Dictated by An Angelo MD Transcribed by Desire Perez Authenticated and . [facility]
--- OUTSIDE RECORDS SUMMARY | 2024-12-22 07:59 | XMS_ITS | Patient Health Record ---
Author Organization [facility] Address [address] [place] [address] Care Team Providers Care Pattern Wheel Maker Name Role Phone Elisa Sorenson Primary Care Provider [phone] ELISA Sorenson APRN Unavailable Unavailable Migration, Provider [...] date:12/20/2024 03:03:16 PM Interpretation: Performing Lab: Notes/Report: M-BUN & Creatinine Reviewed date:12/21/2024 08:29:24 AM Interpretation: Performing Lab: Notes/Report: BUN 17 9-20 mg/dl CREATT 1.10 0.66-1.25 mg/dl GFRAA 90 >60 ML/MIN EGFR 74 >60 ml/min M-Complete Blood Count Auto Diff Reviewed date:12/30/2023 [...] and 38 years old. jessica Glover.al. JCEM 2017,102;5847-6763. PMID: [id number]. Performed at: [facility] [address] [id number] Weather Strip Installer: Miguel Chapin PhD, Phone: [phone] Medications Medication SIG (Take, Route, Frequency, Duration) [...] W/U Status Risk Notes Problem Essential hypertension (86174367) Essential hypertension (I10) Active confirmed Problem Seasonal allergy (845012622) Seasonal allergies (J30.2) Active confirmed Problem Generalized anxiety disorder (37353959) BITA (generalized anxiety disorder) (F41.1) Active confirmed Problem Left rotator cuff syndrome (628309925649359) Rotator cuff syndrome of left shoulder (M75.102) Active confirmed Problem Lymphadenitis (78107522) Inguinal lymphadenitis (I88.9) Active confirmed Problem Leukopenia (93006869) Leukopenia (D72.819) Activ e confirmed Problem Carpal tunnel syndrome of left wrist (330433705377130) Carpal tunnel syndrome of left wrist (G56.02) Active confirmed Problem Familial hypercholesterolemia (883810841) Familial hypercholesterolemia (E78.01) Active confirmed Problem Sciatica (21253861) Acute bilate ral low back pain with right-sided sciatica (M54.41) Active confirmed Problem Tinnitus of left ear (5312188101144) Tinnitus of left ear (H93.12) Active confirmed Problem Atrial septal defect (disorder) (03772874) Atrial septal defect, unspecified (Q21.10) Active confirmed Vital Signs Heart Rate 82 /min 12/16/2024 Temperature 97.3 degrees Fahrenheit 12/16/2024 Blood pressure diastolic 92 mm Hg 12/16/2024 Height 5'8 in 12/16/2024 Blood pressure systolic 134 mm Hg 12/16/2024 Weight 173 lbs 12/16/2024 BMI 26.3 kg/m2 12/16/2024 Encounters Encounter Location Date Provider Diagnosis [facility] [address] [facility] [address] [place] [address] 06/17/2024 Provider Migration [facility] [address] [address] 09/18/2024 Elisa McNees Atypical chest pain R07.89 [facility] [address] [place] [address] 12/16/2024 Elisa McNees Syncope, unspecified syncope type R55 ; Postural dizziness R42 ; Hypokalemia E87.6 and Essential hypertension I10 [facility] [address] [place] [address] [place] [address] 12/18/2024 Elisa McNees [facility] [address] [place] [address] 12/20/2024 Elisa McNees Syncope and collapse R55 ; Syncope, unspecified syncope type R55 ; Atrial septal defect, unspecified Q21.10 and Dizzy spells R42 [facility] [address] [place] [address] 12/20/2024 Elisa McNees Assessments Encounter Date Diagnosis (ICD Code) Assessment Notes Treatment Notes Treatment Clinical Notes Section Notes 12/20/2024 Syncope and collapse (ICD-10 - R55) 12/16/2024 Syncope, unspecified syncope type (ICD-10 - [...] discussed 12/16/2024 Postural dizziness (ICD-10 - R42) 09/18/2024 Atypical chest pain (ICD-10 - R07.89) Reassurance EKG NSR- no ectopy or ischemia. Likely MS in nature and complicated by his health anxiety.Stretch es, ibuprofen, ice/heat for comfort. Signs of angina that warrant urgent FU discussed. 12/16/2024 Hypokalemia (ICD-10 - E87.6) 12/20/2024 Syncope, unspecified syncope type (ICD-10 - R55) 12/20/2024 Atrial septal defect, unspecified (ICD-10 - Q21.10) 12/16/2024 Essential hypertension (ICD-10 - I10) 12/20/2024 Dizzy spells (ICD-10 - R42) Plan Of Treatment Pending Test Test Name Order Date EKG : In House 03/19/2014 Physical Therapy 11/18/2018 Physical Therapy 02/08/2013 Holter Monitor, 48 hour 12/20/2024 H-CBC with AUTO DIFF 05/14/2015 H-URINE CULTURE 05/14/2015 H-CMP 05/14/2015 H-RAPID PLASMA REAGIN 05/14/2015 H-SED RATE 05/14/2015 H-URINE CHLAMYDIA 05/14/2015 H-URINE GC 05/14/2015 C-CBC 06/10/2020 C-CMP 05/31/2020 C-HEPATITIS PANEL 10/08/2016 M-Complete Blood Count Auto Diff 024 M-Comprehensive Metabolic Panel 12/10/19 24 M-Hemoglobin A1C 06/04/2020 M-Lipid Panel 12/10/2023 M-Thyroid Stimulating Hormone 12/10/2023 M-Semen Analysis 12/10/2023 M-Testosterone 12/10/2023 MRI BRAIN WOW 12/20/2024 Insurance Providers Payer Name Payer Address Payer Phone Subscriber Number Group Number Insured Name Patient Relationship to Insured Coverage Start Date Coverage [place] [address] [place] [address] [id number] [phone] Alexei Kelley Self - patient is the insured Medical (General) History Medical History History ICD Code allergies ulcers 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 Surgery Date(Month/Year) tonsillectomy Hospitalization History Reason Date(Month/Year) [facility] - bacterial infection 08/21-12/2023 colitis
[2024-12-22] MEDS: SODIUM CHLORIDE 0.9% 10ML SYR (RAD ONLY) 10 ML IV (09:06)
[2024-12-22] MEDS: GADOTERIDOL INJ 20ML SYRINGE 15 ML IV (09:06)
== END 2024-12-22 23:59 | disposition home or self-care (01) ==
LOC: RAD 07:57
PROVIDERS: PCP Nurse Practitioner Family; Visit Provider Nurse Practitioner Family
DX: Q21.10 Atrial septal defect, unspecified (principal); R55 Syncope and collapse; R42 Dizziness and giddiness; R51.9 Headache, unspecified
CPT/HCPCS: 70553; A9576

== ENCOUNTER 2024-12-25 10:20 | Outpatient (CLI) | payer OTHER, SELFPAY ==
--- OUTSIDE RECORDS SUMMARY | 2024-12-20 09:10 | XMS_ITS ---
Author Organization [facility] Address [address] [facility] 36 [facility] [address] [place] [address] Care Team Providers Care Coiled Coil Inspector Name Role Phone Elisa Sorenson Primary Care Provider ELISA Sorenson APRN Unavailable Unavailable Results Component Value Reference Range Notes MRI BRAIN WOW (Not yet revie wed by provider) Interpretation: Performing Lab: Notes/Report: REASON FOR VISIT MRI Brain order and Holter Monitor Encounters Encounter Location Date Provider Diagnosis [facility] [address] [facility] [address] [facility] [address] [place] [address] 12/20/2024 Elisa Sorenson Syncope and collapse R55 [...] * Alexei HUERTA ADOB:1985 (39 yo M)Acc No.[id number]:12/20/2024 Patient: Alexei MCBRIDE :1985 A ge:39 Y S ex:Male Address:[place] [address] Subjective: * Chief Complaints: * M RI Brain order and Holter Monitor * Medical History: * 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: * Hospitalization/Major Diagno stic Procedure: * Medications: Objective: * Vitals: * Physical Examination: Assessment: * Assessment: 1. S yncope and collapse - R55 2 . S yncope, unspecified syncope type - R55? 3. A trial septal defect, unspecified - Q21.10 4 . D montse khan - R42 Plan: * Treatment: * 2.?Syncope, unspecified syncope type?Imaging: Holter Monitor, 48 hour* Power, Karishma 12/20/2024 01: 13:10 PM EDT > * 3.?Atrial septal defect, unspecified?Imaging: Holter Monitor, 48 hour* Power, Karishma 12/20/2024 01: 13:10 PM EDT > * ?Imaging: MRI BRAIN WOW* URGENTWith and Without Contr ast CPT [id number] auth requiredPower, Karishma 12/20/2024 01:16:22 PM EDT > * 4.?Dizzy spells?Imaging: Holter Monitor, 48 hour* Power, Karishma 12/20/2024 01: 13:10 PM EDT > * ?Imaging: MRI BRAIN WOW* URGENTWith and Without Contr ast CPT [id number] auth requiredPower, Karishma 12/20/2024 01:16:22 PM EDT > * * Procedure Codes: * true * Date: Generated for Alecia yoder/Tyler/eTransmitting on: 10:29 AM EDT
--- OUTSIDE RECORDS SUMMARY | 2024-12-25 10:29 | XMS_ITS | Encounter Summary ---
Author Organization Healthcare Address [address] [place] [address] Care Team Providers Care Eye Dropper Assembler Name Role Phone Unavailable Primary Care Provider Unavailabl e Reason for Referral * Consultation (Routine) - Authorized Specialty Diagnoses / Procedures Referred By Contac t Referred To Contact Cardiology Diagnoses Atrial septal defect Syncope and collapse Francy Cox APRN [address] [place] [address] Phone: tel: fax: Primo Gaxiola MD [address] [place] [address] Phone: tel: fax: Referral ID Status Reason Start Date Expiration Date Visits Requested Visits Authorized [id number] Authorized Specialty Services Required 12/20/2024 06/21/2026 1 1 Encounter Details Date Type Department Care Team (Late st Contact Info) Description 12/20/2024 Community Orders Community Practice [address] [place] [address] Francy Cox APRN [address] [place] [address] Atrial septal defect (Primary Dx); Syncope and [...]
--- OUTSIDE RECORDS SUMMARY | 2024-12-25 10:29 | XMS_ITS | Clinical Summary ---
Author Organization Healthcare Address [address] [place] [address] Care Team Providers Care Director Financial Planning Name Role Phone Unavailable Primary Care Provider Unavailabl e Encounters Date Type Department Care Team Description 12/20/2024 Community Orders Community Practice [address] [place] [address] Francy Cox APRN Atrial septal defect (Primary [...]
--- NOTE | 2024-12-25 10:30 | MR_ITS ---
APPROVED REPORT Cavalry Officer: CLINICAL INDICATION Evaluation for interatrial shunt TECHNIQUE Image Acquisition: Cardiac magnetic resonance (CMR) was performed on Siemens Espree MRI 1.5T scanner. Software platform sequences were performed using the Siemens Sovicell MR B19 platform. A set of three-plane, low-resolution, large [id number] localizers were initially acquired. Then axial, coronal, sagittal TrueFISP, as well as axial HASTE images, were obtained. These were followed by gated TrueFISP breathold cinematic sequences obtained in the short axis with 8 mm slices and 2 mm gaps, 2-chamber (vertical long axis), 3-chamber, 4-chamber (horizontal long axis). A bolus of contrast was injected intravenously with first-pass sequences obtained in the short axis and four-chamber planes. After approximately 10 minutes, a TI financial sales advisor sequence was performed to determine the optimal TI time. Using the optimized TI time, delayed contrast enhancement segmented inversion???recovery TurboFLASH sequences were obtained in the short axis, 2-chamber, 3-chamber, and 4-chamber projections. 2D-velocity phase mapping was performed. Functional parameters were calculated by offline analysis on an independent workstation ([employer] Platform, CVIHipscan). Contrast: ProHance??? (Gadoteridol) FINDINGS MORPHOLOGY AND FUNCTION Left ventricle: The left ventricle is normal in size. The indexed left ventricular end-diastolic volume (LVEDVi) is 60 ml/m2 (reference range 57-105 ml/m2 in males, 56-96 ml/m2 in females). Normal left ventricular systolic function is present. There is normal left ventricular wall thickness. There are no regional wall motion abnormalities noted. LVEF is calculated at 65.5% (reference range 57-77%). Right ventricle: The right ventricle is normal in size. The indexed right ventricular end-diastolic volume (RVEDVi) is 75 ml/m2 (reference range 61-121 ml/m2 in males, 48-112 ml/m2 in females). Normal right ventricular systolic function is present. RVEF is calculated at 56.8% (reference range 52-72% in males, 51-71% in females). Atria: The left atrium is normal in size. The maximum indexed left atrial volume is 20 ml/m2 (reference range 26-52 ml/m2 in males, 27-53 ml/m2 in females). The right atrium is normal in size. The maximum indexed right atrial volume is 18 ml/m2 (reference range 18-90 ml/m2). Aorta: The diameter of the aortic annulus is normal, measuring 27 mm (coronal view reference range 21-30 mm in males, 19-27 mm in females). The diameter of the aortic sinus is normal, measuring 35 mm (coronal view reference range 25-42 mm in males, 24-36 mm in females). The diameter of the sinotubular junction is normal, measuring 24 mm (coronal view reference range 18-32 mm in males, 18-28 mm in females). The diameters of the ascending and descending thoracic aorta are normal. Main pulmonary artery: The main pulmonary artery diameter is normal. Pericardium: The pericardial thickness is normal. The pericardial thickness measures 1.0 mm (normal < 4.0 mm). There is no pericardial effusion. VALVES The valvular morphologies in the visualized sequences appear normal. There is no significant valvular stenosis or regurgitation of the mitral, aortic, tricuspid, or pulmonic valve noted visually. Systolic anterior motion of the mitral valve is not visualized. Ratio of pulmonary to systemic flow, Qp:Qs ratio = 1.05 (normal < or = 1.2, hemodynamically significant shunt > 1.5), demonstrating no evidence of hemodynamically significant shunt. TISSUE CHARACTERIZATION Resting Perfusion: Normal myocardial blood flow at rest. No evidence of resting hypoperfusion. Myocardial Fibrosis and/or edema: Normal gadolinium kinetics are present. No evidence of late gadolinium enhancement is noted, consistent with absence of myocardial scarring, infarction, or necrosis. T2-weighted imaging demonstrates no evidence of myocardial edema or inflammation. OTHER No other significant findings are noted. However, this exam is focused on the cardiac structure and function. IMPRESSION Normal LV size with normal LV systolic function. LVEDVi= 60 ml/m2 and LVEF= 65.5%. Normal RV size with normal RV systolic function. RVEDVi= 75 ml/m2 and RVEF= 56.8%. No atrial enlargement. No CMR evidence of myocardial scarring, infarction, or necrosis. No evidence of myocardial edema or inflammation. Perfusion analysis demonstrates normal blood flow at rest with no evidence of resting hypoperfusion. Ratio of pulmonary to systemic flow, Qp:Qs ratio = 1.05 (normal < or = 1.2, hemodynamically significant shunt > 1.5), demonstrating no evidence of hemodynamically significant shunt. COMPARISON None CRITICAL RESULT None COMMUNICATION The above findings were relayed to the patient at the time of the routine outpatient cardiology follow-up visit, prior to dictation of this report. The findings of this cardiac MR were reviewed, reported, and signed by Agusto Hathaway MD (Modeling Analyst). Conclusion Electronically signed by : She Hathaway MD 12/26/2024 11:44:32
[2024-12-25] MEDS: GADOTERIDOL INJ 20ML SYRINGE 17 ML IV (11:21)
== END 2024-12-25 23:59 | disposition home or self-care (01) ==
LOC: RAD 10:20
PROVIDERS: PCP Nurse Practitioner Family; Visit Provider Nurse Practitioner
DX: Q21.10 Atrial septal defect, unspecified (principal); R55 Syncope and collapse; R07.9 Chest pain, unspecified; R93.1 Abnormal findings on diagnostic imaging of heart and coronary circulation
CPT/HCPCS: 75561; A9576

== ENCOUNTER → 2024-12-26 09:47 | Day surgery (SDC) | payer OTHER, SELFPAY ==
[2024-12-25 11:46] VITALS: BMI 26.6
[2024-12-26 09:56] VITALS: BP 138/92; PULSE 93; RESP 16; TEMP 36.7; O2SAT 95
--- NOTE | 2024-12-26 10:00 | CA_ITS ---
APPROVED REPORT EXAM: Comprehensive 2D, Doppler, and color-flow Echocardiogram B2B Appointment Setter: RT Aurora(R) Ht: 5 ft 7 in Wt: 168lbs BSA: 1.88 BP: 145/98 mmHg Indications: PFO on TTE, syncope Echo Enhancing Agent Indication: Rule Out Septal Defect Agent(s) / Amount(s) Used: Agitated Saline 15 cc Procedure After obtaining informed consent, patient underwent transesophageal echo in the [facility]. Type of Sedation : MAC Sedation was administered by Sonny Thacker C.R.N.A. Sedation start time: 10:40 Case end Time: 10:48 Transesophageal probe was inserted and advanced into esophagus without difficulty by Dr. Agusto Hathaway. Echo enhancement agent administered: Agitated Saline The TED was performed without complications. Throughout the procedure, the blood pressure, pulse oximetry, cardiac rhythm, and rate were monitored. The patient tolerated the procedure without adverse effects. Recovery from conscious sedation was uneventful and vital signs were stable. Left Ventricle The left ventricle is normal size. The left ventricular systolic function is normal. The left ventricular ejection fraction is within the normal range. There is normal left ventricular wall thickness. There is normal LV segmental wall motion. LVEF is 55%. Right Ventricle The right ventricle is normal size. The right ventricular systolic function is normal. Atria The left atrium size is normal. No thrombus is visualized in the left atrium or appendage. The right atrium size is normal. Small patent foramen ovale (PFO) is noted. The PFO tunnel length measures 0.8 cm, tunnel width measures 0.15 cm. Agitated saline administration demonstrates migration of bubbles through the PFO within 3 cardiac cycles. Aortic Valve The aortic valve is normal in structure. The aortic valve is trileaflet. There is no aortic valvular stenosis. No aortic regurgitation is present. Mitral Valve The mitral valve is normal in structure. No evidence of mitral valve stenosis. Trace mitral valve regurgitation noted. Tricuspid Valve Tricuspid valve is grossly normal in structure and function. Trace tricuspid regurgitation. There is insufficient TR jet to estimate RVSP. Pulmonic Valve The pulmonary valve is normal in structure. Trace pulmonic regurgitation. Great Vessels The aortic root is normal in size. The ascending aorta is normal in size. Pericardium There is no pericardial effusion. Other Information Study Quality: Fair Conclusion Normal biventricular systolic function. No significant valvular stenosis or regurgitation. Small patent foramen ovale (PFO) is noted. The PFO tunnel length measures 0.8 cm, tunnel width measures 0.15 cm. Agitated saline administration demonstrates migration of bubbles through the PFO within 3 cardiac cycles. In the setting of normal biventricular size and systolic function, as well as small low-risk status of PFO (i.e. small PFO width), no further intervention is required at the time. Clinical correlation is required. Electronically signed by : She Hathaway MD 12/27/2024 23:41:40
[2024-12-26] MEDS: LACTATED RINGERS 1000ML 1,000 ML 50 ML IV (10:06)
--- NOTE | 2024-12-26 10:06 | EXP.ANES.CKL ---
[facility] Disclaimer: The information contained in this section may have been updated after the patient was seen, as this information can be updated by other users. Medical History Abnormal echocardiogram Elevated d-dimer Chest pain Interatrial cardiac shunt Exposure to strep throat Strep sore throat Rupture of extensor pollicis longus tendon Left wrist pain Atypical chest pain 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 History of tonsillectomy Family History Other No significant family history Social History Smoking Status: Never smoker alcohol intake: never substance use type: denies use current occupational status: employed Travel in the last 8 weeks?: None household members: spouse housing: house caffeine: Yes [facility] Anesthesia Checklist Patient Identification Patient Identification: Arm Band and Verbal (Name & ) Structural Data Admitted From: Home Planned Operative Procedure/s: TED Consent for Planned Operative Procedure(s) Verified: Yes Verified Documents: Surgical Consent NPO Status Verified Time NPO: 00:00 Chart Verification Results Verified: ECG Additional verifications Anesthesia Reactions: No Airway Assessment Mallampati Score:: Class II C-Spine Mobility Assessed: Yes TMJ Mobility Assessed: Yes Dentition: Good Dentition Neurological Assessment Level of Consciousness: Awake, Alert and Appropriate Hx Seizures: No Numbness or tingling in extremities: No Anesthesia Plan Anesthesia Risk discussed: Yes Anesthesia Plan: Verified ASA Class: II Anesthesia Type: MAC
[2024-12-26 10:40] VITALS: BP 123/77; PULSE 89; RESP 16; TEMP 36.5; O2SAT 95
[2024-12-26 10:50] VITALS: BP 125/84; PULSE 104; O2SAT 98
[2024-12-26 11:00] VITALS: BP 137/81; PULSE 95; O2SAT 97
[2024-12-26 11:10] VITALS: BP 133/86; PULSE 81; O2SAT 95
== END | disposition home or self-care (01) ==
PROVIDERS: PCP Nurse Practitioner Family; Visit Provider Internal Medicine
PROC: (CPT 93312; principal; 2024-12-26 10:00)
DX: R55 Syncope and collapse (principal); R07.9 Chest pain, unspecified; R93.1 Abnormal findings on diagnostic imaging of heart and coronary circulation; R42 Dizziness and giddiness; R53.83 Other fatigue; G24.8 Other dystonia
CPT/HCPCS: 93015; 93270; 93312; 93319; J2003; J2704; J7120

== ENCOUNTER 2024-12-27 09:34 | Outpatient (CLI) | payer OTHER, SELFPAY ==
--- OUTSIDE RECORDS SUMMARY | 2024-06-17 17:30 | XMS_ITS ---
Author Organization [facility] Address [address] [facility] [address] [facility] [address] [place] [address] Care Team Providers Care Christmas Tree Grower Name Role Phone Elisa Sorenson Primary Care Provider [phone] ELISA Sorenson APRN Unavailable Unavailable Migration, Provider [...] Encounter Encounters Encounter Location Date Provider Diagnosis [facility] [address] [place] [address] [facility] [address] [place] [address] 06/17/2024 Provider Migration Plan Of Treatment No Information Progress Notes * YUSEFAlexei SAENZ ADOB:1985 (39 yo M)Acc No.[id number]:06/17/2024 Patient: Alexei MCBRIDE A Provider: Chiqui cornelius Migration :1985 A ge:38 Y S ex:Male Date:06/17/2024 Address:[id number] Pcp:Elisa Sorenson Subjective: * Chief Complaints: * 1 . Multum To Medispan Conversion Encounter. * Medical History: * Allergies: F lagyl, Cipro, Penicillin, Diclofenac. Objective: * Vitals: Assessment: Plan: * Treatment: * * Electronic signature of Prov ider Migration on 12/27/2024 at 09:45 AM EDT Sign off status: Pending * Provider: Chiqui cornelius Migration Date: 0 06/17/2024 Generated for Alecia yoder/Tyler/Alcides on: 1 09:45 AM EDT
--- OUTSIDE RECORDS SUMMARY | 2024-12-16 06:30 | XMS_ITS ---
Author Organization [facility] PE D [facility] Address [address] [facility] [address] [place] [address] Care Team Providers Care Senior Sas Developer Name Role Phone Francy Sorenson Primary Care Provider FRANCY Sorenson APRN Unavailable Unavailable Allergies Allergen (clinical drug ingredient) Drug/Non Drug Allergy documented on EMR Reaction Allergy Type Onset Date Status ciprofloxacin Cipro Unknown Drug Allergy Act paddy metronidazole Flagyl Unknown Drug Allergy Act paddy Penicillin Unknown Drug Allergy Active diclofenac Diclofenac Unknown Drug Allergy Activ e Results Component Value Reference Range Notes Echocardiogram - Bubble Stud y Reviewed date:12/20/2024 03:03:16 PM Interpretation: Performing Lab: Notes/Report: Reason For Referral Reason echo with bubble Diagnosis 1 Syncope, unspecified syncope type (R55) Referral Organization [facility] [place] Referring Provider First Name Francy Referring Provider Last Name Delta Referring Provider Speciality Family Pra ctice Referred Organization [facility] Referred Address [address] [facility], [place],[address], Referred Provider Specialty Diagnostic R adiology General Notes Karishma Bermudez 2024 12:09:07 PM >sent to [facility] to schedule marked Urgent Referral Priority Urgent REASON FOR VISIT Passed out at work, high blood pressure, ED F/U Medications Medication SIG (Take, Route, Frequency, Duration) Notes Start Date End Date Status amLODIPine Besylate 5 MG 1 tablet Orally Once a day; Duration: 30 days 12/16/2024 Active Problems Problem Type SNOMED Code ICD Code Onset Dates Problem Status W/U Status Risk Notes Problem Essential hypertension (14825352) Essential hypertension (I10) Active confirmed Vital Signs Temperature 97.3 degrees Fahrenheit 12/17/19 25 Blood pressure systolic 134 mm Hg 12/17/19 25 Blood pressure diastolic 92 mm Hg 025 Heart Rate 82 /min 12/16/2024 Height 5'8 in 12/16/2024 Weight 173 lbs 12/16/2024 BMI 26.3 kg/m2 12/16/2024 Encounters Encounter Location Date Provider Diagnosis [facility] [address] [place] [address] 12/16/2024 Francy McNees Syncope, unspecified syncope type R55 ; Postural dizziness R42 ; Hypokalemia E87.6 and Essential hypertension I10 Assessments Encounter Date Diagnosis (ICD Code) Assessment Notes Treatment Notes Treatment Clinical Notes Section Notes 12/16/2024 Syncope, unspecified syncope type (ICD-10 - R55) ED records reviewed Likely related to poor hydration status from diarrhea and mild dehydration/vas ovagal event Increase oral fluid intake. Gatorade daily x 1 week Start CCB for HTN, MOA and SE profile discussed. Will obtain echo with bubble given his HTN and syncopal event. FU in 2 weeks Urgent return precautions discussed 12/16/2024 Postural dizziness (ICD-10 - R42) 12/16/2024 Hypokalemia (ICD-10 - E87.6) 12/16/2024 Essential hypertension (ICD-10 - I10) Plan Of Treatment Medication Medication Name Sig Start Date Stop Date Notes amLODIPine Besylate 5 MG 1 tablet Orally Once a day; Duration: 30 days 12/16/2024 Treatment Notes Assessment Notes Syncope, unspecified syncope type ED records reviewed Likely related to poor hydration status from diarrhea and mild dehydration/vasovagal event Increase oral fluid intake. Gatorade daily x 1 week Start CCB for HTN, MOA and SE profile discussed. Will obtain echo with bubble given his HTN and syncopal event. FU in 2 weeks Urgent return precautions discussed Referrals Referral Date Details 12/17/2024 12/17/2024, echo wit h bubble, [address] [facility], [place] [address], Next Appt Details Follow Up: 2 Weeks,prn, Reas on: Progress Notes * Alexei HUERTA ADOB:1985 (39 yo M)Acc No.[id number]:12/16/2024 Progress Notes Patient: Alexei MCBRIDE Provider: Juan Sorenson, LOCO :1985 A ge:39 Y S ex:Male Date:12/16/2024 Address:[facility] [place], [id number] Subjective: * Chief Complaints: * 1 . Passed out at work, high blood pressure, ED F/U. * HPI: C ardiology: 39 year old male presents with c/o dizziness. c/o fatigue. Denies : chest pain. D enies : shortness of breath. D enies : palpitations. D enies : leg edema. D enies : cyanosis. D enies : diaphoresis.? Presents for ED FU on syncope. Reports he was standing talking to a friend when vision became blurry and hearing was muted. Believes he lost consciousness for a few seconds while in vehicle on way to hospital. Denies any assoc chest pain, SOA or palpitations. Reports some diarrhea earlier that day, no vomiting. No fevers. In the ED work up -EKG, CXR and labs was negative other than elevated blood pressure, mild hypokalemia and dehydration. He was given IVF's and po KCL and discharged for FU with PCP. Today, reports fatigue, orthostasis and head pressure. Typically, is very active and has no exertional symptoms. * ROS: A LLERGY: no R unny nose. R ESPIRATORY: no C hest congestion. n o C ough. C ONSTITUTIONAL: no L oss of appetite. n o F ever. G ASTROENTEROLOGY: Reviewed, No Symptoms Reported: Y es. N EUROLOGY: Headache y es, p ressure. n o T ingling numbness. * Medical History: A llergies, Ulcers. * Medications: N one * Allergies: F lagyl, Cipro, Penicillin, Diclofenac. Objective: * Vitals: N urse: aw, Pain: 0, Temp: 97.3, RR: 18, HR: 82, BP: 134/92, Ht: 5'8 , Wt: 173, BMI:26.3, Repeat BP: 132/102. * Examination: G eneral Examination: General P leasant and Cooperative, NAD on RA,. Oral cavity: M oist membranes. Chest: n ormal shape and expansion. Heart: R egular Rate and Rhythm, no murmur, rubs or gallops. Lungs: L CTAB, No wheezes, crackles or rhonchi, Good air movement,. Abdomen: S oft, NTND, BSNA, No organomegaly or peritoneal signs.. Neurologic Exam: n o focal signs,, normal sensation, strength, tone and reflexes,, Alert and oriented x 3. Skin: w ithout acute rashes. Peripheral pulses: n ormal (2+) bilaterally. neck S upple,, no thyromegaly,, no lymphadenopathy, no carotid bruit. Psych N ormal Mood/Affect. diabetic foot exam V isual exam of foot performed: Y es. Neck s upple, no lymphadenopathy. General Appearance: N AD, pleasant. Assessment: * Assessment: 1. S yncope, unspecified syncope type - R55 (Primary) 2 . P ostural dizziness - R42 3 . H ypokalemia - E87.6 4 . E ssential hypertension - I10 Plan: * Treatment: * Notes: ED records reviewed Likely related to poor hydration status from diarrhea and mild dehydration/vasovagal event Increase oral fluid intake. Gatorade daily x 1 week Start CCB for HTN, MOA and SE profile discussed. Will obtain echo with leigh given his HTN and syncopal event. FU in 2 weeks Urgent return precautions discussed? Referral To: ?Reason:echo with bubble 2.?Essential hypertension? Start amLODIPine Besylate Tablet, 5 MG, 1 tablet, Orally, Once a day, 30 days, 30 Tablet, Refills 0.?? * Follow Up: 2 Weeks,prn * * Sign off status: Completed true * Provider: Juan Sorenson APRN Date: Generated for Alecia yoder/Tyler/eTransmitting on: 1 09:45 AM EDT History and Physical Notes * HPI (History of Present Illness) Category Sub-Category Detail Notes Category Not es Cardiology shortness of breath Presents for ED FU on syncope. Reports he was standing talking to a friend when vision became blurry and hearing was muted. Believes he lost consciousness for a few seconds while in vehicle on way to hospital. Denies any assoc chest pain, SOA or palpitations. Reports some diarrhea earlier that day, no vomiting. No fevers. In the ED work up -EKG, CXR and labs was negative other than elevated blood pressure, mild hypokalemia and dehydration. He was given IVF's and po KCL and discharged for FU with PCP. Today, reports fatigue, orthostasis and head pressure. Typically, is very active and has no exertional symptoms. chest pain palpitations dizziness leg edema fatigue cyanosis diaphoresis Examination Category Sub-Category Detail Notes Category Not es General Examination Neck supple, no lymphadeno gio Heart: Regular Rate and Rhy thm, no murmur, rubs or gallops Lungs: LCTAB, No wheezes, c rackles or rhonchi, Good air movement, Abdomen: Soft, NTND, BSNA, No organomegaly or peritoneal signs. General Appearance: NAD, pleasant Skin: without acute rashes Neurologic Exam: no focal signs,, nor mal sensation, strength, tone and reflexes,, Alert and oriented x 3 Oral cavity: Moist membranes Peripheral pulses: normal (2+) bilatera lly Chest: normal shape and exp ansion neck Supple,, no thyromeg kelsie,, no lymphadenopathy, no carotid bruit General Pleasant and Coopera tive, NAD on RA, Psych Normal Mood/Affect diabetic foot exam Visual exam of foot performed :: Yes Consultation Request Notes Referral Date Referring Provider Referred Provider Not es 12/17/2024 Francy Sorenson , echo with bubb le
--- OUTSIDE RECORDS SUMMARY | 2024-12-20 09:10 | XMS_ITS ---
Author Organization [facility] Address [address] [facility] [address] [facility] [address] [place] [address] Care Team Providers Care Aircraft Mechanic Armament Name Role Phone Elisa Sorenson Primary Care Provider ELISA Sorenson APRN Unavailable Unavailable Results Component Value Reference Range Notes MRI BRAIN WOW Reviewed date:12/26/2024 09:10:45 AM Interpretation: Performing Lab: Notes/Report: REASON FOR VISIT MRI Brain order and Holter Monitor Encounters Encounter Location Date Provider Diagnosis [facility] [address] [facility] [address] [facility] [address] [place] [address] 12/20/2024 Elisa Sorenson Syncope and collapse R55 ; Syncope, unspecified syncope type R55 ; Atrial septal defect, unspecified Q21.10 and Dizzy spells R42 Assessments Encounter Date Diagnosis (ICD Code) Assessment Notes Treatment Notes Treatment Clinical Notes Section Notes 12/20/2024 Syncope and collapse (ICD-10 - R55) 12/20/2024 Syncope, unspecified syncope type (ICD-10 - R55) 12/20/2024 Atrial septal defect, unspecified (ICD-10 - Q21.10) 12/20/2024 Dizzy spells (ICD-10 - R42) Plan Of Treatment Pending Test Test Name Order Date Holter Monitor, 48 hour 12/20/2024 Progress Notes * Alexei HUERTA ADOB:1985 (39 yo M)Acc No.[id number]:12/20/2024 Patient: Alexei MCBRIDE :1985 A ge:39 Y S ex:Male Address:[place] [address] Subjective: * Chief Complaints: * M RI Brain order and Holter Monitor * Medical History: * 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: * Hospitalization/Major Diagno stic Procedure: * Medications: Objective: * Vitals: * Physical Examination: Assessment: * Assessment: 1. S yncope and collapse - R55 2 . S yncope, unspecified syncope type - R55? 3. A trial septal defect, unspecified - Q21.10 4 . D montse spells - R42 Plan: * Treatment: * 2.?Syncope, unspecified syncope type?Imaging: Holter Monitor, 48 hour* Power, Karishma 12/20/2024 01: 13:10 PM EDT > * 3.?Atrial septal defect, unspecified?Imaging: Holter Monitor, 48 hour* Power, Karishma 12/20/2024 01: 13:10 PM EDT > * ?Imaging: MRI BRAIN WOW* URGENTWith and Without Contr ast CPT [id number] auth requiredPower, Karishma 12/20/2024 01:16:22 PM EDT > * 4.?Dizzy spells?Imaging: Holter Monitor, 48 hour* Power, Karishma 12/20/2024 01: 13:10 PM EDT > * ?Imaging: MRI BRAIN WOW* URGENTWith and Without Contr ast CPT [id number] auth requiredPower, Karishma 12/20/2024 01:16:22 PM EDT > * * Procedure Codes: * true * Date: Generated for Alecia yoder/Tyler/eTransmitting on: 1 09:45 AM EDT
--- OUTSIDE RECORDS SUMMARY | 2024-12-21 04:15 | XMS_ITS ---
Author Organization [facility] Address [address] [place] [address] Care Team Providers Care Specialist Physician Name Role Phone Elisa Sorenson Primary Care Provider ELISA Sorenson APRN Unavailable Unavailable REASON FOR VISIT passed out last Wednesday, head ache Encounters Encounter Location Date Provider Diagnosis [facility] [address] [place] [address] 12/21/2024 Elisa Sorenson Plan Of Treatment No Information Progress Notes * MARIBELElijah Joelh ADOB:1985 (39 yo M)Acc No.[id number]:12/21/2024 Progress Notes Patient: Alexei MCBRIDE Provider: Juan Sorenson APRN :1985 A ge:39 Y S ex:Male Date:12/21/2024 Address:[id number] Subjective: * Chief Complaints: * 1 . passed out last Wednesday, head ache. * Medical History: Objective: * Vitals: Assessment: Plan: * Treatment: * * Electronic signature of Nilton Sorenson APRN on 12/27/2024 at 09:45 AM EDT Sign off status: Pending * Provider: Juan Sorenson APRN Date: 1 Generated for Alecia yoder/Tyler/Alcides on: 1 09:45 AM EDT
--- OUTSIDE RECORDS SUMMARY | 2024-12-27 09:45 | XMS_ITS | Clinical Summary ---
Author Organization Healthcare Address [address] [place] [address] Care Team Providers Care Security Systems Technician Name Role Phone Unavailable Primary Care Provider Unavailabl e Encounters Date Type Department Care Team Description 12/20/2024 Community Orders Community Practice [address] [place] [address] Francy Cox APRN Atrial septal defect (Primary [...]
--- OUTSIDE RECORDS SUMMARY | 2024-12-27 09:45 | XMS_ITS | Encounter Summary ---
Author Organization Healthcare Address [address] [place] [address] Care Team Providers Care Veterinary Radiologist Name Role Phone Unavailable Primary Care Provider Unavailabl e Reason for Referral * Consultation (Routine) - Authorized Specialty Diagnoses / Procedures Referred By Contac t Referred To Contact Cardiology Diagnoses Atrial septal defect Syncope and collapse Francy Cox APRN [address] [place] [address] Phone: tel: fax: Primo Gaxiola MD [address] [place] [address] Phone: tel: fax: Referral ID Status Reason Start Date Expiration Date Visits Requested Visits Authorized [id number] Authorized Specialty Services Required 12/20/2024 06/21/2026 1 1 Encounter Details Date Type Department Care Team (Late st Contact Info) Description 12/20/2024 Community Orders Community Practice [address] [place] [address] Francy Cox APRN [address] [place] [address] Atrial septal defect (Primary Dx); Syncope and [...]
--- OUTSIDE RECORDS SUMMARY | 2024-12-27 09:46 | XMS_ITS | Patient Health Record ---
Author Organization [facility] Address [address] [place] [address] [place] [address] Care Team Providers Care Process Development Technician Name Role Phone Elisa Sorenson Primary [...] date:12/20/2024 03:03:16 PM Interpretation: Performing Lab: Notes/Report: MRI BRAIN WOW Reviewed date:12/26/2024 09:10:45 AM Interpretation: Performing Lab: Notes/Report: M-BUN & Creatinine Reviewed date:12/21/2024 08:29:24 AM Interpretation: Performing Lab: Notes/Report: BUN 17 9-20 mg/dl CREATT 1.10 0.66-1.25 mg/dl GFRAA 90 >60 ML/MIN EGFR 74 >60 ml/min M-Testosterone Reviewed date:12/30/2023 09:55:03 AM Interpretation: Performing Lab: Notes/Report: lcTESTT 565 264-916 ng/dL Adult male reference interval is based on a population of healthy nonobese males (BMI <30) between 19 and 39 years old. Adalberto et.al. JCEM 2017,102;8713-9793. PMID: [id number]. Performed at: - [facility] [id number] Hospital Clerk: Miguel Chapin PhD, Phone: [phone] M-Complete Blood Count Auto Diff Reviewed date:12/30/2023 [...] Performing Lab: Notes/Report: TSH 1.87 0.465-4.68 uIU/mL Medications Medication SIG (Take, Route, Frequency, Duration) [...] W/U Status Risk Notes Problem Essential hypertension (84283093) Essential hypertension (I10) Active confirmed Problem Seasonal allergy (005625973) Seasonal allergies (J30.2) Active confirmed Problem Generalized anxiety disorder (19146381) BITA (generalized anxiety disorder) (F41.1) Active confirmed Problem Left rotator cuff syndrome (063927236526052) Rotator cuff syndrome of left shoulder (M75.102) Active confirmed Problem Lymphadenitis (88821718) Inguinal lymphadenitis (I88.9) Active confirmed Problem Leukopenia (23729056) Leukopenia (D72.819) Activ e confirmed Problem Carpal tunnel syndrome of left wrist (524188435065049) Carpal tunnel syndrome of left wrist (G56.02) Active confirmed Problem Familial hypercholesterolemia (017935325) Familial hypercholesterolemia (E78.01) Active confirmed Problem Sciatica (52606222) Acute bilate ral low back pain with right-sided sciatica (M54.41) Active confirmed Problem Tinnitus of left ear (2174520396155) Tinnitus of left ear (H93.12) Active confirmed Problem Atrial septal defect (disorder) (30169315) Atrial septal defect, unspecified (Q21.10) Active confirmed Vital Signs Heart Rate 82 /min 12/16/2024 Temperature 97.3 degrees Fahrenheit 12/16/2024 Blood pressure diastolic 92 mm Hg 12/16/2024 Height 5'8 in 12/16/2024 Blood pressure systolic 134 mm Hg 12/16/2024 Weight 173 lbs 12/16/2024 BMI 26.3 kg/m2 12/16/2024 Encounters Encounter Location Date Provider Diagnosis [facility] [address] [facility] [address] [place] [address] 06/17/2024 Provider Migration [facility] [address] [address] 09/18/2024 Elisa McNees Atypical chest pain R07.89 [facility] [address] [place] [address] [place] [address] 12/16/2024 Elisa McNees Syncope, unspecified syncope type R55 ; Postural dizziness R42 ; Hypokalemia E87.6 and Essential hypertension I10 [facility] [address] [facility] [address] [place] [address] 12/18/2024 Elisa McNees [facility] [address] [place] [address] [place] [address] 12/20/2024 Elisa McNees Syncope and collapse R55 ; Syncope, unspecified syncope type R55 ; Atrial septal defect, unspecified Q21.10 and Dizzy spells R42 [facility] [address] [place] [address] [place] [address] 12/20/2024 Elisa McNees Assessments Encounter Date Diagnosis [...] discussed 12/16/2024 Postural dizziness (ICD-10 - R42) 12/20/2024 Syncope and collapse (ICD-10 - R55) 09/18/2024 Atypical chest pain (ICD-10 - R07.89) [...] 03/19/2014 Physical Therapy 02/08/2013 Physical Therapy 11/18/2018 Holter Monitor, 48 hour 12/20/2024 H-CBC with [...] Coverage End Date R [address] [address] [place] [address] [id number] [phone] Alexei Kelley Self - patient is the insured Medical (General) History Medical History History ICD Code allergies ulcers 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 Surgery Date(Month/Year) tonsillectomy Hospitalization History Reason Date(Month/Year) [facility] - bacterial infection 08/21-12/2023 colitis
[2024-12-27 10:00] VITALS: BP 132/99; BP 160/90; PULSE 82; RESP 14
--- NOTE | 2024-12-27 10:00 | CA_ITS ---
APPROVED REPORT Exam: Exercise Treadmill Technologist: Lyndsay Turner Stress Nurse: Lesly CHOE, RN Ht: 5 ft 7 in Wt: 168 lbs BSA: 1.88 m2 HR: 82 bpm BP: 132/99 mmHg Indications: Abnormal Echocardiogram, Chest Pain, Syncope Stress Test Details Test: Exercise stress testing was performed using a Rupesh protocol. HR Resting HR: 82 bpm Max Heart Rate (APMHR): 180 bpm Max HR Achieved: 179 bpm Target HR (85% APMHR): 153 bpm % of APMHR: 99 Recovery HR: 115 bpm HR response to stress: Normal HR response to stress BP Resting BP: 132.0/99.0 mmHg Max BP: 160.0/90.0 mmHg Recovery BP: 146.0/94.0 mmHg BP response to stress: Normal blood pressure response to stress. ECG Resting ECG: Sinus rhythm ST Change: Less than 0.[address] segment changes Arrhythmia: None Recovery ECG: Sinus rhythm Recovery ST Change: Less than 0.[address] segment changes Recovery Arrhythmia: None Clinical Reason for Termination: Target HR Achieved Exercise duration: 12 min Exercise capacity: 12.1 METs Overall Exercise Capacity for Age: Good Stress ECG Conclusion Symptoms: None Arrhythmias/Ectopy: None ST-T Changes: Less than 0.[address] segment changes. CONCLUSION No evidence of ischemia on ECG at peak stress. Menjivar Treadmill Score is which is Low risk. Electronically signed by : She Hathaway MD 12/27/2024 12:34:45
== END 2024-12-27 23:59 | disposition home or self-care (01) ==
LOC: RT 09:34
PROVIDERS: PCP Nurse Practitioner Family; Visit Provider Nurse Practitioner
DX: R55 Syncope and collapse (principal); Q24.8 Other specified congenital malformations of heart; R07.9 Chest pain, unspecified; R93.1 Abnormal findings on diagnostic imaging of heart and coronary circulation
CPT/HCPCS: 93017; 93018